=== PATIENT | female | born 1945 | race Caucasian/White ===

== ENCOUNTER → 2017-03-21 | Outpatient (CLI) | payer MEDICARE ==
--- NOTE | 2017-03-21 11:43 | FL ---
EXAMINATION TYPE: FL barium swallow DATE OF EXAM: 03/21/2017 CLINICAL HISTORY: Cough and aspiration per order. Food getting caught in back of throat with some cou ghing per patient. TECHNIQUE: A double contrast esophagram is performed utilizing air and barium. A total of 36 second s of fluoroscopic time was utilized during procedure. COMPARISON: Modified barium swallow report September 02, 2012. FINDINGS: The esophagus shows normal motility and emptying into the stomach. No evidence of hiatal h ernia or stricture noted. In proximal esophagus at lower cervical level there is diverticulum measuri ng roughly 2 cm in vertebral body length and roughly 80% of width of a vertebra. Diverticulum is disc ussed on 2012 study , suspect increased in size. No significant gastroesophageal reflux was seen duri ng real time performance of this study. IMPRESSION: Zenker's diverticulum redemonstrated felt increased in size based on prior report and lik roshan is accounting for patient's symptoms.
== END | disposition home or self-care (01) ==
LOC: RADFLWHC 10:46
PROVIDERS: ATTEND Otolaryngology
DX: K22.5 Diverticulum of esophagus, acquired (principal); R05 Cough
CPT/HCPCS: 74220

== ENCOUNTER → 2017-05-17 | Outpatient (CLI) | payer MEDICARE ==
[2017-05-17 10:49] LABS: EKG EKG PERFORMED
[2017-05-17 12:09] LABS: Basophils % (A) 1 %; CH 32.1; Eosinophils # (A) 0.1 k/uL (0-0.7); Eosinophils % (A) 2 %; HCT 42.8 % (34.0-46.0); HDW 2.36; HGB 14.4 gm/dL (11.4-16.0); Luc # (Auto) 0.17; Luc % (Auto) 3; Lymphocytes # (A) 1.2 k/uL (1.0-4.8); Lymphocytes % (A) 20 %; MCH 31.8 pg (25.0-35.0); MCHC 33.6 g/dL (31.0-37.0); MCV 94.7 fL (80.0-100.0); Monocytes # (A) 0.4 k/uL (0-1.0); Monocytes % (A) 6 %; Neutrophils # (A) 4.1 k/uL (1.3-7.7); Neutrophils % (A) 68 %; RBC 4.52 m/uL (3.80-5.40); RDW 13.9 % (11.5-15.5); WBC (Perox) 6.14
[2017-05-17 12:19] LABS: Partial Thromboplastin Time 22.7 sec (22.0-30.0); Prothrombin Time 10.3 sec (9.0-12.0)
[2017-05-17 12:23] LABS: Anion Gap 11 mmol/L; Blood Urea Nitrogen 16 mg/dL (7-17); Carbon Dioxide 26 mmol/L (22-30); Chloride 106 mmol/L (98-107); Glucose 103 mg/dL (74-99); Non-African American GFR(MDRD) >60 (>60 ml/min/1.73 sqM); Potassium 4.2 mmol/L (3.5-5.1); Sodium 143 mmol/L (137-145)
== END | disposition home or self-care (01) ==
LOC: LABPAT 10:38
PROVIDERS: ATTEND Thoracic Surgery (Cardiothoracic Vascular Surgery)
DX: Z01.810 Encounter for preprocedural cardiovascular examination (principal); K22.5 Diverticulum of esophagus, acquired; I10 Essential (primary) hypertension; Z79.01 Long term (current) use of anticoagulants; Z01.812 Encounter for preprocedural laboratory examination
CPT/HCPCS: 80051; 82565; 82947; 84520; 85025; 85610; 85730; 87086; 93005

== ENCOUNTER 2017-05-20 05:51 | Inpatient (IN) | payer MEDICARE ==
[2017-05-16 16:16] VITALS: BMI 30.9
[~2017-05-20 05:51] MED LIST: DEXAMETHASONE SOD PHOSPHATE 10 MG/ML 1 ML VIAL IV ONE; HYDROmorphone 1 MG/ML 1 ML SYRINGE IVP PRN; LACTATED RINGERS 1,000 ML IV SCH; MIDAZOLAM 2 MG/2 ML VIAL IV PRN; ONDANSETRON 4 MG/2 ML VIAL IVP ONE; SCOPOLAMINE 1.5MG/72HR PATCH TRANSDERM ONE; ceFAZolin 2 GM in SODIUM CHLORIDE 0.9% 100 ML IVPB ONE
[2017-05-20] MEDS ORDERED: LIDOCAINE 1% 20 ML VIAL (10MG/ML) FOR IV START SQ ONE (06:37)
[2017-05-20] MEDS ORDERED: ROCURONIUM BROMIDE 10 MG/ML 10 ML VIAL IV ONE (07:33)
[2017-05-20] MEDS ORDERED: NEOSTIGMINE 1 MG/ML 10 ML VIAL ONE (07:33)
[2017-05-20] MEDS ORDERED: GLYCOPYRROLATE 0.2 MG/ML 2 ML VIAL ONE (07:33)
[2017-05-20] MEDS ORDERED: PROPOFOL 10 MG/ML 20 ML VIAL IV ONE (07:33)
[2017-05-20] MEDS ORDERED: ePHEDrine 50 MG/ML 1 ML AMP ONE (07:33)
[2017-05-20] MEDS ORDERED: LIDOCAINE 1% INJ 10MG/ML (20 ML MDV) ONE (07:33)
[2017-05-20] MEDS ORDERED: SUCCINYLCHOLINE CHLORIDE 100 MG/5 ML SYR IV ONE (07:33)
[2017-05-20] MEDS ORDERED: fentaNYL (PF) 50 MCG/ML 2 ML AMP ONE (07:33)
[2017-05-20] MEDS ORDERED: MIDAZOLAM 2 MG/2 ML VIAL ONE (07:33)
[2017-05-20] MEDS ORDERED: HYDROcodone/APAP 5-325MG 1 EACH TAB PO PRN (09:28)
[2017-05-20] MEDS ORDERED: NALOXONE 0.4 MG/ML 1 ML VIAL IV PRN (09:28)
[2017-05-20] MEDS ORDERED: ONDANSETRON 4 MG/2 ML VIAL IVP PRN (09:28)
[2017-05-20] MEDS ORDERED: ACETAMINOPHEN TAB 325 MG TAB PO PRN (09:28)
[2017-05-20] MEDS ORDERED: ALBUTEROL NEBULIZED 2.5 MG/3 ML INHALATION PRN (09:35)
--- NOTE | 2017-05-20 09:35 | P.OP ---
Date of Procedure: 05/20/17 Preoperative Diagnosis: Symptomatic Zenker's diverticulum Postoperative Diagnosis: Symptomatic Zenker's diverticulum Procedure(s) Performed: Repair of Zenker's diverticulum with myotomy and diverticulopexy Implants: Anesthesia: [id number] Surgeon: Lexx John Construction Person #1: Perry Juan Estimated Blood Loss (ml): 12 Pathology: none sent Disposition: floor Indications for Procedure: Operative Findings: Description of Procedure: Patient was brought to the operating room electively for the repair of his Zenker's diverticulum with severe symptoms. Preoperative barium swallow revealed a large diverticulum. She has been known to have the problem for many many years and now is overtly severely symptomatic she was prepped and draped in usual sterile Betadine fashion after informed consent timeout was performed and a low incision on the anterior border the sternocleidomastoid was carried out through skin and simultaneous tissue electrocautery utilized for hemostasis on the left side anterior to the carotid artery we penetrated with dissection to the level of the vertebral body and dissected free the posterior pharynx in the and identified the posterior esophageal diverticulum and posterior constrictor once we dissected the diverticulum free from constrictor we perform the femoral myotomy for personally 4 cm down to the thoracic inlet myotomy after the myotomy was completed with sharp scissors of the diverticulum is inverted and pexed to the posterior cervical fascia with 2 interrupted sutures of silk 3L stenosis was the diverticulopexy was completed a small Allen drain was placed into the space brought out through the incision and the wound was closed in layers with Vicryl sutures and Steri-Strips all needle sponges counts were correct [facility] operative report on patient Basiliajamshid John dictating first established technical surgical aide was Dr. Perry Ross the procedure completed thank you
[2017-05-20] MEDS: HYDROcodone/APAP 5-325MG 1 EACH TAB PO PRN (11:35)
[2017-05-20] MEDS: CALCIUM CARB-VIT D 500MG-200UN 1 EACH TAB PO SCH (11:41)
[2017-05-20] MEDS: ATORVASTATIN 10 MG TAB PO SCH (11:41)
[2017-05-20] MEDS: amLODIPine 5 MG TAB PO SCH (11:41)
[2017-05-20] MEDS: ASCORBIC ACID 500 MG TAB PO SCH (11:41)
[2017-05-20] MEDS: CHOLECALCIFEROL 1,000 UNIT TAB PO SCH (11:42)
[2017-05-20] MEDS: LOSARTAN 50 MG TAB PO SCH (11:42)
[2017-05-20] MEDS: LEVOTHYROXINE 75 MCG TAB PO SCH (11:42)
[2017-05-20] MEDS: CYANOCOBALAMIN-FA-PYRIDOXINE 1 EACH TAB PO SCH (11:42)
[2017-05-20] MEDS: MULTIVITAMINS, THERA 1 EACH TAB PO SCH (11:43)
[2017-05-20] MEDS: VENLAFAXINE HCL ER 150 MG CAP PO SCH (11:43)
[2017-05-20] MEDS: D5-0.45% NACL WITH KCL 20MEQ/L 1,000 ML IV SCH (12:24)
[2017-05-20] MEDS: HEPARIN SODIUM,PORCINE 5,000 UNIT/ML 1 ML VIAL SQ SCH (15:50)
[2017-05-20] MEDS: FAMOTIDINE 20 MG TAB PO SCH (20:40)
[2017-05-20] MEDS: DOCUSATE 100 MG CAP PO SCH (20:40)
--- NOTE | 2017-05-20 22:50 | P.CONS ---
History of Present Illness - Reason for Consult Consult date: 05/20/17 Medical management Requesting physician: Lexx John - Chief Complaint Surgery - History of Present Illness Consultation: This is a very pleasant 71-year-old patient of Dr. Lowe. Patient having progressive difficulty swallowing with liquids and solids and feeling the food getting stuck in throat. Patient did have a barium swallow that did confirm her Meckel's diverticulum. Patient did see Dr. Sukh Bush and then Dr. Juan. Surgery was done by . Postprocedure patient take some clear liquids. No chest pain or shortness of breath no fever. Has been out of bed. Patient chronic stable medical conditions include asthma, hypertension, hyperlipidemia, hypothyroid, obstructive sleep apnea uses CPAP, and depression. GEN.: Tired EYES: None HEENT: As above NECK: None RESPIRATORY: None CARDIOVASCULAR: None GASTROINTESTINAL: None GENITOURINARY: None MUSCULOSKELETAL: None LYMPHATICS: None HEMATOLOGICAL: None PSYCHIATRY: Depression under control NEUROLOGICAL: None Past medical history: Asthma, hypertension, hyperlipidemia, hypothyroid, obstructive sleep apnea, depression, his ankles Dr. Swanson. Past medical history: Bowel resection, breast surgery, hysterectomy, bowel resection 2. ALLERGIES: None Social history: Does not smoke or drink alcohol. Lives by herself. Family history: Prostate cancer VITAL SIGNS: 97.4, 101, 16, 134/69, 91% room air GENERAL: Average built, laying in bed, BMI 30.9 comfortable. EYES: Pupils equal. Conjunctiva normal. HEENT: External appearance of nose and ears normal, oral cavity grossly normal. NECK: JVD unable to assess, dressing present. HEART: First and second heart sounds are normal; no edema. LUNGS: Respiratory rate normal; clear to auscultation. ABDOMEN: Soft, nontender, liver spleen not palpable, no masses palpable. LYMPHATICS: No lymph nodes palpable in the axilla and neck. PSYCH: Alert and oriented x3; mood and affect normal. NEUROLOGICAL: Cranial nerves grossly intact; no facial asymmetry, power and sensation grossly intact. Investigations Labwork from 05/17/70 showing white count of 6, hemoglobin 14.4, potassium 4.2,. Crit is normal. Assessment: -Surgical repair of Zenker's diverticulum -Intubated asthma controlled -Essential hypertension -Hyperlipidemia -Hypothyroidism -Obstructive sleep apnea uses CPAP and she -Depression not otherwise specified controlled -Obesity BMI 30.9 Plan: Patient currently a liquid diet. Home medications are resumed. Patient is out of bed a few times. Patient is followed by Dr. Lowe up at discharge Thank Past Medical History Past Medical History: Asthma, Hyperlipidemia, Hypertension, Thyroid Disorder Additional Past Medical History / Comment(s): "choking from food getting stuck in a pouch in the esophagus", BRONCHITIS. BOWEL OBSTRUCTION IN THE PAST,use cpap History of Any Multi-Drug Resistant Organisms: None Reported Past Surgical History: Bowel Resection, Breast Surgery, Hysterectomy Additional Past Surgical History / Comment(s): mult BILATERAL BREAST BX-NEGATIVE ,bowel resection x2 Past Anesthesia/Blood Transfusion Reactions: Motion Sickness Additional Past Anesthesia/Blood Transfusion Reaction / Comm: no hx blood transfusion Smoking Status: Never smoker - Past Family History Mother Family Medical History: No Reported History Father Family Medical History: Cancer Additional Family Medical History / Comment(s): prostate at age 82 Medications and Allergies Home Medications Medication Instructions Recorded Confirmed Type Albuterol Sulfate [Proair Hfa] 1 puff INHALATION RT-DAILY PRN 02/15/15 05/20/17 History Calcium Carb/Vitamin D3/Vit K1 1 tab PO DAILY 02/15/15 05/20/17 History [Viactiv Soft Chew Tablet] Cholecalciferol [Vitamin D3] 2,000 unit PO DAILY 02/15/15 05/20/17 History Levothyroxine Sodium [Synthroid] 75 mcg PO DAILY 02/15/15 05/20/17 History Losartan Potassium [Losartan 100 mg PO QAM 02/15/15 05/20/17 History Potassium] Multivitamins, Thera [Multivitamin] 1 tab PO DAILY 02/15/15 05/20/17 History Simvastatin [Simvastatin] 20 mg PO DAILY 02/15/15 05/20/17 History Venlafaxine HCl [Venlafaxine HCl 150 mg PO DAILY 02/15/15 05/20/17 History ER] Vitamin B Complex 1 cap PO DAILY 02/15/15 05/20/17 History Ascorbic Acid [Vitamin C] 500 mg PO DAILY 05/16/17 05/20/17 History Ibuprofen 600 mg PO BID 05/16/17 05/20/17 History amLODIPine BESYLATE [Norvasc] 5 mg PO DAILY 05/16/17 05/20/17 History Allergies Allergy/AdvReac Type Severity Reaction Status Date / Time No Known Allergies Allergy Verified 05/16/17 14:22 Physical Exam Vitals: Delete
[2017-05-21] MEDS: HEPARIN SODIUM,PORCINE 5,000 UNIT/ML 1 ML VIAL SQ SCH ×2 (00:14→07:22)
[2017-05-21] MEDS: D5-0.45% NACL WITH KCL 20MEQ/L 1,000 ML IV SCH (01:00)
[2017-05-21] MEDS: LEVOTHYROXINE 75 MCG TAB PO SCH (05:23)
[2017-05-21] MEDS: LOSARTAN 50 MG TAB PO SCH (07:21)
[2017-05-21] MEDS: FAMOTIDINE 20 MG TAB PO SCH (07:21)
[2017-05-21] MEDS: DOCUSATE 100 MG CAP PO SCH (07:21)
[2017-05-21] MEDS: MULTIVITAMINS, THERA 1 EACH TAB PO SCH (07:22)
[2017-05-21] MEDS: CALCIUM CARB-VIT D 500MG-200UN 1 EACH TAB PO SCH (07:22)
[2017-05-21] MEDS: CHOLECALCIFEROL 1,000 UNIT TAB PO SCH (07:22)
[2017-05-21] MEDS: amLODIPine 5 MG TAB PO SCH (07:22)
[2017-05-21] MEDS: CYANOCOBALAMIN-FA-PYRIDOXINE 1 EACH TAB PO SCH (07:22)
[2017-05-21] MEDS: VENLAFAXINE HCL ER 150 MG CAP PO SCH (07:22)
[2017-05-21] MEDS: ASCORBIC ACID 500 MG TAB PO SCH (07:22)
[2017-05-21] MEDS: ATORVASTATIN 10 MG TAB PO SCH (07:23)
[2017-05-21] MEDS: HYDROcodone/APAP 5-325MG 1 EACH TAB PO PRN (07:32)
[2017-05-21 07:53] LABS: Basophils % (A) 0 %; CH 31.7; CHCM 33.5; Eosinophils # (A) 0.1 k/uL (0-0.7); Eosinophils % (A) 1 %; HCT 40.1 % (34.0-46.0); HDW 2.33; HGB 13.3 gm/dL (11.4-16.0); Luc # (Auto) 0.26; Luc % (Auto) 2; Lymphocytes # (A) 1.7 k/uL (1.0-4.8); Lymphocytes % (A) 16 %; MCH 31.6 pg (25.0-35.0); MCHC 33.3 g/dL (31.0-37.0); MCV 95.1 fL (80.0-100.0); Mean Platelet Volume 6.4; Monocytes # (A) 0.6 k/uL (0-1.0); Monocytes % (A) 5 %; Neutrophils # (A) 8.1 k/uL (1.3-7.7); Neutrophils % (A) 75 %; RBC 4.22 m/uL (3.80-5.40); RDW 13.2 % (11.5-15.5); WBC 10.8 k/uL (3.8-10.6); WBC (Perox) 12.04
[2017-05-21 08:24] LABS: ALT 34 U/L (9-52); AST 28 U/L (14-36); Alkaline Phosphatase 72 U/L (38-126); Anion Gap 8 mmol/L; Blood Urea Nitrogen 11 mg/dL (7-17); Calcium 8.9 mg/dL (8.4-10.2); Carbon Dioxide 24 mmol/L (22-30); Chloride 109 mmol/L (98-107); Glucose 110 mg/dL (74-99); Non-African American GFR(MDRD) >60 (>60 ml/min/1.73 sqM); Potassium 4.2 mmol/L (3.5-5.1); Sodium 141 mmol/L (137-145); Total Bilirubin 0.3 mg/dL (0.2-1.3); Total Protein 6.1 g/dL (6.3-8.2)
[2017-05-21 08:29] VITALS: BP 207/84; PULSE 81; RESP 18; TEMP 97.9
[2017-05-21] MEDS ORDERED: cloNIDine HCL 0.1 MG TAB PO STA (08:49)
--- NOTE | 2017-05-21 14:21 | P.DS ---
Providers Date of admission: 05/20/17 10:19 Attending physician: Lexx John Consults: 05/20/17 09:28 Consult Physician Routine Consulting Provider: Perry Juan Consult Reason/Comments: vascular managment Do you want consulting provider notified?: Already Contacted 05/20/17 09:34 Consult Physician Routine Consulting Provider: Pradeep Hannah Consult Reason/Comments: medical managment Do you want consulting provider notified?: Yes Primary care physician: Osbaldo Vaughn [facility] Course: FINAL DIAGNOSIS: 1. Symptomatic Zenker's diverticulum 2. Hypertension 3. Hyperlipidemia 4. Asthma 5. Obstructive sleep apnea with CPAP use 6. Hypothyroidism 7. Depression PRINCIPAL PROCEDURE: 1. Repair of Zenker's diverticulum with myotomy and diverticulopexy HISTORY OF PRESENT ILLNESS: This 71-year-old lady was followed in the outpatient setting by Dr. Vaughn. Apparently she has been having progressive difficulty swallowing for the past several years. She had a barium swallow which confirmed a diagnosis of Meckel's diverticulum. She did see Dr. Leonard and Dr. Bush, who were unable to offer her successful treatment recommendations and subsequently she was referred to Dr. Juan for surgical evaluation. She was recommended to have repair of Zenker's diverticulum, all risks benefits were explained in detail, he was explained to the patient that Dr. John would be performing the procedure, and the patient agreed to proceed with surgery. HOSPITAL COURSE: The patient was brought in to the hospital on 05/20/2017, she was taken to the preoperative area, prepared in the usual fashion, and taken to the operating room where Dr. John performed a repair of Zenker's diverticulum with myotomy and diverticulopexy. Upon completion of surgery the patient was extubated, taken to the recovery room where she was monitored, and once stable was transferred to the medical surgical unit for further monitoring. She remained stable overnight and was able to tolerate a clear liquid diet, she progressed to full liquid diet the following morning, and her [place] drain was discontinued. She had no hoarseness and no crepitus around the surgical site, and she was able to swallow her pills whole without them getting stuck. She did have an episode of hypertension the morning of postop day 1 which which resolved with 1 dose of oral Catapres. She was ready to be discharged home with plans for follow-up with Dr. Juan in one week. She was given verbal and written instructions regarding activity limitations, signs and symptoms requiring physician notification, medications, COMPLICATIONS: There is no postoperative complications. DISCHARGE INSTRUCTIONS: 1. No driving until physician gives their ok. 2. No lifting, pushing, or pulling more than 5 pounds seen by the physician. No straining of any kind. 3. Continue pain control per as needed orders. 4. Continue with incentive spirometry until otherwise directed by the physician. 5. May shower daily using liquid antibacterial soap 6. Routine incision care. No powders, lotions, ointments on incisions. 7. Please call surgeon/[employer] for temp greater than 101 F, purulent drainage from incisions, or crepitus around surgical site. 8. Continue with soft diet until seen by physician. Plan - Discharge Summary New Discharge Prescriptions: New Acetaminophen Tab [Tylenol] 650 mg PO Q6HR PRN tab PRN Reason: Mild Pain Or Fever >= 100.5 Docusate [Colace] 100 mg PO BID cap Continue Cholecalciferol [Vitamin D3] 2,000 unit PO DAILY Albuterol Sulfate [Proair Hfa] 1 puff INHALATION RT-DAILY PRN PRN Reason: Shortness Of Breath Or Wheezing Simvastatin 20 mg PO DAILY Losartan Potassium 100 mg PO QAM Levothyroxine Sodium [Synthroid] 75 mcg PO DAILY Venlafaxine HCl [Venlafaxine HCl ER] 150 mg PO DAILY Vitamin B Complex 1 cap PO DAILY Calcium Carb/Vitamin D3/Vit K1 [Viactiv Soft Chew] 1 tab PO DAILY Multivitamins, Thera [Multivitamin (formulary)] 1 tab PO DAILY Ascorbic Acid [Vitamin C] 500 mg PO DAILY amLODIPine BESYLATE [Norvasc] 5 mg PO DAILY Discontinued Ibuprofen 600 mg PO BID Discharge Medication List Albuterol Sulfate [Proair Hfa] 1 puff INHALATION RT-DAILY PRN 02/15/15 [History] Calcium Carb/Vitamin D3/Vit K1 [Viactiv Soft Chew] 1 tab PO DAILY 02/15/15 [ History] Cholecalciferol [Vitamin D3] 2,000 unit PO DAILY 02/15/15 [History] Levothyroxine Sodium [Synthroid] 75 mcg PO DAILY 02/15/15 [History] Losartan Potassium 100 mg PO QAM 02/15/15 [History] Multivitamins, Thera [Multivitamin (formulary)] 1 tab PO DAILY 02/15/15 [History ] Simvastatin 20 mg PO DAILY 02/15/15 [History] Venlafaxine HCl [Venlafaxine HCl ER] 150 mg PO DAILY 02/15/15 [History] Vitamin B Complex 1 cap PO DAILY 02/15/15 [History] Ascorbic Acid [Vitamin C] 500 mg PO DAILY 05/16/17 [History] amLODIPine BESYLATE [Norvasc] 5 mg PO DAILY 05/16/17 [History] Acetaminophen Tab [Tylenol] 650 mg PO Q6HR PRN tab 05/21/17 [Rx] Docusate [Colace] 100 mg PO BID cap 05/21/17 [Rx]
== END 2017-05-21 11:50 | disposition home or self-care (01) | DRG 328 ==
LOC: OR 05:51 → EDSTATUS 07:30 → 5MS5E 08:44 → OR 10:19
PROVIDERS: ADMIT Thoracic Surgery (Cardiothoracic Vascular Surgery); ATTEND Thoracic Surgery (Cardiothoracic Vascular Surgery)
PROC: 0DN50ZZ Release Esophagus, Open Approach (ICD-10-PCS; principal; 2017-05-20 07:30)
DX: K22.5 Diverticulum of esophagus, acquired (principal); E66.9 Obesity, unspecified; I10 Essential (primary) hypertension; R13.10 Dysphagia, unspecified; F32.9 Major depressive disorder, single episode, unspecified; E03.9 Hypothyroidism, unspecified; E78.5 Hyperlipidemia, unspecified; G47.33 Obstructive sleep apnea (adult) (pediatric); J45.909 Unspecified asthma, uncomplicated; Q43.0 Meckel's diverticulum (displaced) (hypertrophic); Z79.899 Other long term (current) drug therapy
CPT/HCPCS: 80053; 85025; 86850; 86900; 86901

== ENCOUNTER → 2018-09-17 | Outpatient (CLI) | payer MEDICARE ==
--- NOTE | 2018-09-18 13:53 | MM ---
Reason for exam: screening (asymptomatic). Last mammogram was performed 1 year ago. History: Patient is postmenopausal and is nulliparous. Benign US left CoreBiopsy of the left breast, January 16, 2006. 4 cyst aspirations of the left breast. 4 cyst aspirations of the right breast. 2 excisional biopsies of the left breast. 2 excisional biopsies of the right breast. Took estrogen for 13 years beginning at age 46. Physical Findings: A clinical breast exam by your physician is recommended on an annual basis and results should be correlated with mammographic findings. MG 3D Screening Mammo W/Cad Bilateral CC and MLO view(s) were taken. Prior study comparison: September 18, 2017, left breast MG 3d work up w/cad LT. September 16, 2017, bilateral MG 3d screening mammo w/cad. The breast tissue is heterogeneously dense. This may lower the sensitivity of mammography. Benign appearing bilateral calcifications. No suspicious abnormality. Left biopsy marker noted. No significant changes when compared with prior studies. ASSESSMENT: Benign, BI-RAD 2 RECOMMENDATION: Routine screening mammogram of both breasts in 1 year.
== END | disposition home or self-care (01) ==
LOC: RADMAMWWP 10:08
PROVIDERS: ATTEND Internal Medicine
DX: Z12.31 Encounter for screening mammogram for malignant neoplasm of breast (principal)
CPT/HCPCS: 77063; 77067

== ENCOUNTER → 2019-05-20 | Outpatient (CLI) | payer MEDICARE, OTHER ==
[2019-05-20 10:09] LABS: African American GFR (CKD) >90 (>60 ml/min/1.73 sqM); Blood Urea Nitrogen 21 mg/dL (7-17)
--- NOTE | 2019-05-20 16:00 | NM ---
EXAMINATION TYPE: NM bone/joint limited DATE OF EXAM: 05/20/2019 COMPARISON: NONE HISTORY: Pleuritic the medial TECHNIQUE: After the intravenous administration of 24.0 mCi Tc 99m MDP. Images acquired 3.75 hours post injection. Multiple views of the bilateral ribs are submitted. FINDINGS: There is mottled uptake within the anterolateral ribs particularly on the right at ribs 7 t hrough 10 and on the left of rib 9 through 11 on the lateral views of the left ribs and oblique views of the right ribs. Overall symmetric uptake is seen of the midthoracic spine, likely degenerative. U ptake is also noted at the sternoclavicular joints bilaterally. IMPRESSION: Patchy heterogenous uptake within multiple bilateral ribs for which correlation with rib series radiographs is recommended.
--- NOTE | 2019-05-20 18:24 | CT ---
EXAMINATION TYPE: CT chest w con DATE OF EXAM: 05/20/2019 COMPARISON: None HISTORY: Rib pain, pleurodynia CT DLP: 558 mGycm, Automated exposure control for dose reduction was used. CONTRAST: Performed injected with 100 ml mL of Isovue 300. TECHNIQUE: Axial images were obtained at 5 mm thick sections. Reconstructed images are reviewed on [employer] computer in the coronal plane. FINDINGS: Portion of the thyroid visualized is normal. No suspicious lung nodules or focal infiltrates are present. No suspicious pleural effusions are evid ent. No pneumothorax is evident. No enlarged mediastinal or hilar adenopathy is evident. The ascending aorta diameter at the level o f the main pulmonary artery is 3.7 cm. The main pulmonary artery diameter at the bifurcation is 2.6 cm. Osseous structures appear intact. Limited CT sections are obtained through the upper abdomen. Small hiatal hernia is present. IMPRESSIONS: 1. No acute abnormality to account for patient's symptoms.
== END | disposition home or self-care (01) ==
LOC: RADNMMAIN 09:26
PROVIDERS: ATTEND Internal Medicine
DX: R07.81 Pleurodynia (principal)
CPT/HCPCS: 82565; 84520; 71260; 36415; 78300; A9503; Q9967

== ENCOUNTER → 2020-04-20 | Outpatient (CLI) | payer MEDICARE ==
--- NOTE | 2020-04-21 10:39 | MM ---
Reason for exam: screening (asymptomatic). Last mammogram was performed 1 year and 7 months ago. History: Patient is postmenopausal and is nulliparous. Benign US left CoreBiopsy of the left breast, January 16, 2006. 4 cyst aspirations of the left breast. 4 cyst aspirations of the right breast. 2 excisional biopsies of the left breast. 2 excisional biopsies of the right breast. Took estrogen for 13 years beginning at age 46. Physical Findings: A clinical breast exam by your physician is recommended on an annual basis and results should be correlated with mammographic findings. MG 3D Screening Mammo W/Cad Bilateral CC and MLO view(s) were taken. Prior study comparison: September 17, 2018, bilateral MG 3d screening mammo w/cad. September 18, 2017, left breast MG 3d work up w/cad LT. The breast tissue is heterogeneously dense. This may lower the sensitivity of mammography. Focal asymmetry upper central left breast posterior third position. This finding is changed when compared with previous exams. ASSESSMENT: Incomplete: need additional imaging evaluation, BI-RAD 0 RECOMMENDATION: Special view mammogram of the left breast. If lesion persists on supplemental views, image directed ultrasound is recommended. [facility] will attempt to contact patient to return for supplemental views and ultrasound if indicated.
== END | disposition home or self-care (01) ==
LOC: RADMAMWWP 12:38
PROVIDERS: ATTEND Internal Medicine
DX: Z12.31 Encounter for screening mammogram for malignant neoplasm of breast (principal)
CPT/HCPCS: 77063; 77067

== ENCOUNTER → 2020-04-27 | Outpatient (CLI) | payer MEDICARE ==
--- NOTE | 2020-04-27 10:53 | MM ---
Reason for exam: additional evaluation requested from abnormal screening. Last mammogram was performed less than 1 month ago. History: Patient is postmenopausal and is nulliparous. Benign US left CoreBiopsy of the left breast, January 16, 2006. 4 cyst aspirations of the left breast. 4 cyst aspirations of the right breast. 2 excisional biopsies of the left breast. 2 excisional biopsies of the right breast. Took estrogen for 13 years beginning at age 46. Physical Findings: Nurse did not find any significant physical abnormalities on exam. MG 3D Work Up W/Cad LT Spot compression CC, spot compression MLO, and LM view(s) were taken of the left breast. Prior study comparison: April 20, 2020, bilateral MG 3d screening mammo w/cad. September 17, 2018, bilateral MG 3d screening mammo w/cad. The breast tissue is heterogeneously dense. This may lower the sensitivity of mammography. There is no discrete abnormality. No significant new findings when compared with previous films. These results were verbally communicated with the patient and result sheet given to the patient on 04/27/20. ASSESSMENT: Negative, BI-RAD 1 RECOMMENDATION: Return to routine screening mammogram schedule for both breasts.
== END | disposition home or self-care (01) ==
LOC: RADMAMWWP 09:42
PROVIDERS: ATTEND Internal Medicine
DX: R92.8 Other abnormal and inconclusive findings on diagnostic imaging of breast (principal)
CPT/HCPCS: 77065; G0279; 77061

== ENCOUNTER → 2020-06-29 | Outpatient (CLI) | payer MEDICARE ==
[2020-06-29 10:39] VITALS: BP 141/79; PULSE 71; RESP 20; TEMP 98.2
--- NOTE | 2020-06-29 11:08 | P.CONS ---
History of Present Illness - Reason for Consult Consult date: 06/29/20 - Chief Complaint Left middle back pain - History of Present Illness This is a 75-year-old lady with history of pain on the left side of her thoracic spine which started about 2 years ago with no precipitating events. The pain gets worse with standing and bending over and lying down may help her pain as she states. The perspiration does not increase her pain. The pain occasionally radiates to the front however the patient denies any paresthesia in the area and she denies any history of herpes zoster in the area. The patient takes 600 mg Y improvement in the morning for this pain she was referred to us by Dr. valle for a trial of diagnostic thoracic medial branch block. She did have an MRI on the thoracic spine which showed syrinx and multiple levels of disc bulging but no canal stenosis or neural foraminal stenosis. The patient has peripheral neuropathy of unknown cause with numbness in the right foot. She denies any bowel or bladder dysfunction or any weakness in the upper or lower extremities. She does complain of imbalance which might need to be worked up further with a neurologist. Review of Systems Constitutional: Denies chills, Denies fever Ears, nose, mouth and throat: Denies headache, Denies sore throat Cardiovascular: Denies chest pain, Denies shortness of breath Respiratory: Denies cough Neurological: Reports as per HPI Past Medical History Past Medical History: Asthma, Hyperlipidemia, Hypertension, Osteoarthritis (OA), Sleep Apnea/CPAP/BIPAP, Thyroid Disorder Additional Past Medical History / Comment(s): cpap use, states has "cyst on back" chronic back pain History of Any Multi-Drug Resistant Organisms: None Reported Past Surgical History: Bowel Resection, Breast Surgery, Hysterectomy Additional Past Surgical History / Comment(s): mult BILATERAL BREAST bx and lumpectomy benign , bowel resection x2, REPAIR OF A POUCH ON THE ESOPHAGUS - RIGHT SIDE OF NECK Past Anesthesia/Blood Transfusion Reactions: Motion Sickness Additional Past Anesthesia/Blood Transfusion Reaction / Comm: no hx blood transfusion- Past Psychological History: Depression Smoking Status: Never smoker Past Alcohol Use History: None Reported Past Drug Use History: None Reported - Past Family History Mother Family Medical History: No Reported History Father Family Medical History: Cancer Additional Family Medical History / Comment(s): prostate at age 82 Medications and Allergies Home Medications Medication Instructions Recorded Confirmed Type Albuterol Sulfate [Proair Hfa] 1 puff INHALATION BID PRN 02/15/15 06/29/20 History Calcium Carb/Vitamin D3/Vit K1 1 tab PO DAILY 02/15/15 06/29/20 History [Viactiv 650 mg-12.5 Mcg Chew] Cholecalciferol [Vitamin D3 (25 2,000 unit PO DAILY 02/15/15 06/29/20 History Mcg = 1000 Iu)] Levothyroxine Sodium [Synthroid] 75 mcg PO DAILY 02/15/15 06/29/20 History Losartan Potassium 100 mg PO QAM 02/15/15 06/29/20 History Multivitamins, Thera [Multivitamin 1 tab PO DAILY 02/15/15 06/29/20 History (formulary)] Simvastatin 20 mg PO DAILY 02/15/15 06/29/20 History Venlafaxine HCl [Venlafaxine HCl 150 mg PO DAILY 02/15/15 06/29/20 History ER] Ascorbic Acid [Vitamin C] 1,000 mg PO DAILY 05/16/17 06/29/20 History amLODIPine BESYLATE [Norvasc] 5 mg PO BID 05/16/17 06/29/20 History Fiber Tablet 1,000 mg PO HS 07/30/17 06/29/20 History Hydrochlorothiazide 12.5 mg PO DAILY PRN 07/30/17 06/29/20 History [hydroCHLOROthiazide] Calcium Carb/Vitamin D3/Vit K1 2 each PO DAILY 06/27/20 06/29/20 History [Viactiv Soft Chew Tablet] Fexofenadine HCl [Caro Allergy] 180 mg PO DAILY 06/27/20 06/29/20 History Gabapentin [Neurontin] 100 mg PO TID 06/27/20 06/29/20 History Ibuprofen [Motrin] 600 mg PO Q8HR PRN 06/27/20 06/29/20 History Allergies Allergy/AdvReac Type Severity Reaction Status Date / Time No Known Allergies Allergy Verified 06/29/20 10:38 Physical Exam Vitals: Vital Signs Temp Pulse Resp BP Pulse Ox 06/29/20 10:33 98.2 F 71 20 141/79 96 - Constitutional General appearance: obese - Neurologic Neurologic: CNII-XII intact - Musculoskeletal Positive tenderness on the left side of her mid and lower thoracic spine on the left side of the spine. Mild skin erythema in the area immediately due to rubbing of this area by the patient. The patient's pain does not increase by deep respiration. - Psychiatric Psychiatric: A&O x's 3, appropriate affect, intact judgment & insight Results Results: The thoracic spine MRI showed a 5 x 6 cm syrinx and multiple levels of disc bulging with no neural foraminal or canal stenosis. Assessment and Plan Plan: This is a 75-year-old lady with history of axial mid and lower thoracic pain on the left side of her spine with occasional radiation to the anterior part of her chest on the left side. The patient denies any history of herpes zoster in the area or any history of paresthesia in this area. She does complain of imbalance in her gait which I think might be due to her syrinx in the thoracic the patient may need to further workup her imbalance by a neurologist. She has thoracic disc bulging with no compression of nerve roots or the spinal cord. Postoperative she has this pain due to myofascial involvement and facet arthropathy and the thoracic spondylosis. We will do a diagnostic thoracic medial branch block on the left side of her spine the levels will be decided at the time for the procedure but most likely they will and for the mid to lower thoracic spine area and possibly one level in the upper lumbar area. The patient does not get any improvement from the medial branch block and then I think we can plan on doing thoracic epidural steroid injection in the future. The procedures were explained to the patient and her questions were answered. I thank you for the referral
== END | disposition home or self-care (01) ==
LOC: PNWHC3 10:20
PROVIDERS: ATTEND Anesthesiology
DX: G89.29 Other chronic pain (principal); M47.816 Spondylosis without myelopathy or radiculopathy, lumbar region; G62.9 Polyneuropathy, unspecified; R26.89 Other abnormalities of gait and mobility; Z79.899 Other long term (current) drug therapy
CPT/HCPCS: 99211

== ENCOUNTER 2020-07-19 07:53 | Day surgery (SDC) | payer MEDICARE ==
[2020-07-18 10:08] VITALS: BMI 33.5
[~2020-07-19 07:53] MED LIST changes: -DEXAMETHASONE SOD PHOSPHATE 10 MG/ML 1 ML VIAL IV ONE; -HYDROmorphone 1 MG/ML 1 ML SYRINGE IVP PRN; -MIDAZOLAM 2 MG/2 ML VIAL IV PRN; -ONDANSETRON 4 MG/2 ML VIAL IVP ONE; -SCOPOLAMINE 1.5MG/72HR PATCH TRANSDERM ONE; -ceFAZolin 2 GM in SODIUM CHLORIDE 0.9% 100 ML IVPB ONE
[2020-07-19 08:33] VITALS: RESP 16; TEMP 98
[2020-07-19] MEDS ORDERED: LIDOCAINE 1% (10MG/ML) FOR IV START INTRADERMA ONE (08:37)
[2020-07-19] MEDS ORDERED: IV FLUID CONTINUATION 1,000 ML IV ONE (09:36)
--- NOTE | 2020-07-19 09:37 | P.PN ---
Subjective Progress Note Date: 07/19/20 This is 75 years old female, who scheduled to have left side medial branch blocks thoracic area, left T7 ,T8 ,T9 after patient was brought to the procedure room , while I was examining the patient he for the procedure she reported that her pain mainly in the low back area on the left side, and she had no pain in the mid back area , and all her pain is in the left side hip area, and left side low back area, she denies any motor or sensory deficit Objective - Vital Signs Vital signs: Vital Signs Temp 98.0 F 07/19/20 08:31 Pulse 78 07/19/20 08:31 Resp 16 07/19/20 08:31 BP 186/79 07/19/20 08:31 Pulse Ox 98 07/19/20 08:31 Intake & Output 07/18/20 07/19/20 07/19/20 18:59 06:59 18:59 Intake Total 50 Balance 50 Weight 88.451 kg 92.8 kg Intake: IV 50 - Exam Physical Examinations : -Constitutiona : Cooperative , not in acute distress . -HEENT : nech : supple , no Lymphadenopathy , normal thyroid size . : eyes : no ptosis , no icterus, no photophobia . . - neurologic : Cranial nerve II to XII intact , no focal neurological deffecit . -psychatric : alert , oriented X 3 , appropriate affect , intact judgment and insight . -Lymphatic : no Lymphadenopathy . - musculoskeltal : Lumber spine moter stegnth lower extremities ,thigh and legs 5/5 Right side , 5/5 Left side deep tendon reflexes : normal Knee Jerk , normal ankle Jerk lumber facet Loading Test = positive on the left side Range of motion of the lumbar spine Flexion 60 degrees, extension 30 degrees strait leg raising test = negative bilaterally Fabere test= positive Right , and positive LT . Sever tenderness over the Left iliac crest at the location of the left cluneal nerve sever tenderness over the left trochanteric bursa. 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 She could benefit from left cluneal nerve block, and left trochanteric bursa steroid injection under fluoroscopy guidance Patient is scheduled to have left-sided medial branch blocks thoracic area, patient reported that she had no pain in the thoracic area The procedure (thoracic medial branch block ) was canceled for today and she will beast rescheduled to have, left trochanteric bursa Left cluneal nerve block Time with Patient: Less than 30
[2020-07-19 09:41] VITALS: BP 138/68; PULSE 67
== END 2020-07-19 09:56 | disposition home or self-care (01) ==
LOC: ORPAIN 07:53
PROVIDERS: ATTEND Specialist
DX: M70.62 Trochanteric bursitis, left hip (principal); Z53.8 Procedure and treatment not carried out for other reasons; G58.8 Other specified mononeuropathies

== ENCOUNTER 2020-07-28 07:41 | Day surgery (SDC) | payer MEDICARE ==
[2020-07-27 08:26] VITALS: BMI 35.0
[2020-07-28 08:03] VITALS: TEMP 97.9
[2020-07-28] MEDS ORDERED: ROPIVACAINE 5MG/ML 20ML VIAL ONE (08:18)
[2020-07-28] MEDS ORDERED: MIDAZOLAM 2 MG/2 ML VIAL ONE (08:18)
[2020-07-28] MEDS ORDERED: fentaNYL (PF) 50 MCG/ML 2 ML AMP ONE (08:18)
[2020-07-28] MEDS ORDERED: TRIAMCINOLONE ACETONIDE 40 MG/ML 1 ML VIAL ONE (08:18)
[2020-07-28] MEDS ORDERED: IV FLUID CONTINUATION 1,000 ML IV ONE (08:37)
--- NOTE | 2020-07-28 08:38 | P.PCN ---
Date of Procedure: 07/28/20 Surgeon: Gianni Mack Pathology: none sent Condition: stable Disposition: PACU Description of Procedure: pre- and postoperative diagnosis :left cluneal nerve entrapment procedure: Left cluneal nerve block under fluoroscopic guidance physician:Gianni Mack MD Anesthesia: Local with IV moderate sedation with Versed and fentanyl Description of procedure: The patient was seen in the preop holding area consent was obtained then she was brought into the procedure room and placed in prone position. ASA monitors were applied. Skin was prepped with ChloraPrep and draped in a sterile manner. Lidocaine 1% was used to numb the skin up at the target points. The target points were chosen as follows: The superior cluneal nerve branches to medial, intermediate, and lateral branches at the medial aspect of the iliac crest slightly lateral to the posterior superior iliac spine. The target points were chosen a few centimeters away from the posterior superior iliac spine in 3 spots at the edge of the iliac crest. I used 22-gauge 3-1/2 inch Quincke spinal needle for this procedure,.after contacting boneI injected 3 mils of a mixture of 40 mg of Kenalog +9 MLS of ropivacaine 0.5% in each spot. patient tolerated procedure well. The patient did not have any pain in the left lateral hip area and that's why her greater trochanter bursa steroid injection was canceled today.
[2020-07-28 08:43] VITALS: RESP 16
[2020-07-28 09:07] VITALS: BP 167/96; PULSE 78
--- NOTE | 2020-07-28 13:09 | FL ---
Fluoroscopy INDICATION: Pain FINDINGS: Fluoroscopy time: 4 seconds. Images obtained: 1. IMPRESSIONS: 1. Documentation of fluoroscopy.
== END 2020-07-28 09:21 | disposition home or self-care (01) ==
LOC: ORPAIN 07:41
PROVIDERS: ATTEND Anesthesiology
DX: G58.8 Other specified mononeuropathies (principal)
CPT/HCPCS: 64450; J2250; J3301; J3010; J2795

== ENCOUNTER → 2020-08-24 | Outpatient (CLI) | payer MEDICARE ==
[2020-08-24 09:24] VITALS: BP 151/84; PULSE 77; RESP 16; TEMP 98.1
--- NOTE | 2020-08-24 10:00 | P.PN ---
Subjective Progress Note Date: 08/24/20 This is a follow-up visit for this 75 years old female, with a chronic history of severe low back pain she is diagnosed with left cluneal neuralgia, we did left cluneal nerve block x1 , and she is here for follow-up visit she reported that she had good pain relief for 1 week after the block, he continued to have severe low back pain mainly on the left side low back area, she denies any motor or sensory deficit, she denies any fever or night sweats and she reported that pain is constant and increases with any activity interfere with the quality of life Objective - Vital Signs Vital signs: Vital Signs Temp 98.1 F 08/24/20 09:16 Pulse 77 08/24/20 09:16 Resp 16 08/24/20 09:16 BP 151/84 08/24/20 09:16 Pulse Ox 97 08/24/20 09:16 - Exam -Constitutiona : Cooperative , not in acute distress . -HEENT : nech : supple , no Lymphadenopathy , normal thyroid size . : eyes : no ptosis , no icterus, no photophobia . . - neurologic : Cranial nerve II to XII intact , no focal neurological deffecit . -psychatric : alert , oriented X 3 , appropriate affect , intact judgment and insight . -Lymphatic : no Lymphadenopathy . - musculoskeltal : Lumber spine moter stegnth lower extremities ,thigh and legs 5/5 Right side , 5/5 Left side deep tendon reflexes : normal Knee Jerk , normal ankle Jerk lumber facet Loading Test = positive on the left side Range of motion of the lumbar spine Flexion 60 degrees, extension 30 degrees strait leg raising test = negative bilaterally Fabere test= negative bilateral. Sever tenderness over the Left iliac crest at the location of the left cluneal nerve sever tenderness over the left trochanteric bursa. 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 She could benefit from left cluneal nerve block, and left trochanteric bursa steroid injection under fluoroscopy guidance Time with Patient: Less than 30
== END | disposition home or self-care (01) ==
LOC: PNWHC3 08:52
PROVIDERS: ATTEND Specialist
DX: G58.8 Other specified mononeuropathies (principal); M70.62 Trochanteric bursitis, left hip; M54.5 Low back pain
CPT/HCPCS: 99211

== ENCOUNTER 2020-09-06 14:01 | Day surgery (SDC) | payer MEDICARE ==
[2020-09-02 09:46] VITALS: BMI 35.2
[2020-09-06 14:19] VITALS: RESP 16; TEMP 97.1
[2020-09-06] MEDS ORDERED: LIDOCAINE 1% (10MG/ML) FOR IV START INTRADERMA ONE (14:26)
[2020-09-06] MEDS ORDERED: MIDAZOLAM 2 MG/2 ML VIAL ONE (15:19)
[2020-09-06] MEDS ORDERED: fentaNYL (PF) 50 MCG/ML 2 ML AMP ONE (15:19)
[2020-09-06] MEDS ORDERED: methylPREDNISolone ACETATE 40 MG/ML 1 ML VIAL ONE (15:19)
[2020-09-06] MEDS ORDERED: ROPIVACAINE 5MG/ML 20ML VIAL ONE (15:19)
[2020-09-06] MEDS ORDERED: IV FLUID CONTINUATION 1,000 ML IV ONE (15:38)
--- NOTE | 2020-09-06 15:40 | P.PCN ---
Date of Procedure: 09/06/20 Procedure(s) Performed: Procedure= left Trechonteric bursa steroid injection under fluoroscopy guidance. Left cluneal nerve block under fluoroscopy guidance (fluoroscopy image stored on file in the radiology Department ). Preoperative diagnosis= 1-left trochanteric bursitis. 2-left cluneal nerve neuralgia. Postoperative diagnosis=Same as preop Diagnosis . Complication = none Condition= stable Anesthesia= moderate sedation with intravenous Versed 1 mg , and fentanyl 50 micrograms . Indication for the procedure= patient complaining of low back pain , examination was positive for severe tenderness over the left trochanteric bursa and over the cluneal nerve patient and the pain was not responsive to conservative treatment Description of the procedure= procedure risk and benefits discussed with the patient, including but not limited, risk of infection and bleeding, and ALLERGIC reaction to the medication and not complete pain relief and patient agreed with the preceding patient taken to the operating room, placed in prone position or standard monitors applied to the patient then after induction of anesthesia back prepped with chlorhexidine 3 times , Then under strict sterile technique, first I did the the left cluneal nerve block by placing a 22-gauge intelligence senior sergeant needle at the location of the left cluneal nerve at the top of the iliac crest, needle placement confirmed under fluoroscopy then after negative aspiration, ropivacaine 0.5% 4 mL and 30 mg of Depo-Medrol injected after negative aspiration and there was no paresthesia during the injection. After that the left trochanteric bursa injection done in a sterile technique, a fter the left hip area prepped with Betadine 3, local infiltration of the skin and subcu interstitial with lidocaine 1% same then 22-gauge Quincke Needle advanced slowly under fluoroscopy and placed in the left trochanteric bursa area, needle placement confirmed with the fluoroscopy then after negative aspiration ropivacaine 0.5% 5 mL mixed with 30 mg of Depo-Medrol injected after negative aspiration under was no paresthesia during the injection patient tolerated the procedure well without any condition and she will follow up in the pain clinic in a few weeks
[2020-09-06 15:59] VITALS: BP 159/83; PULSE 85
--- NOTE | 2020-09-06 17:56 | FL ---
EXAMINATION TYPE: FL guided pain mgmt statistic DATE OF EXAM: 09/06/2020 FLUOROSCOPY Fluoroscopy time of 3 seconds was used during nerve block and bursal steroid injection for spondylosi s. 2 image/s document/s the procedure.
== END 2020-09-06 16:33 | disposition home or self-care (01) ==
LOC: ORPAIN 14:01
PROVIDERS: ATTEND Specialist
DX: M70.62 Trochanteric bursitis, left hip (principal); G58.8 Other specified mononeuropathies; M54.5 Low back pain
CPT/HCPCS: 20610; 64450; J2250; J1030; J3010; J2795

== ENCOUNTER → 2020-09-19 | Outpatient (CLI) | payer MEDICARE ==
[2020-09-19 14:00] VITALS: BP 160/78; PULSE 79; RESP 18; TEMP 97.9
--- NOTE | 2020-09-20 06:22 | P.PN ---
Subjective Progress Note Date: 09/19/20 This is a follow-up visit for this 75 years old female, with a chronic history of severe low back pain she is diagnosed with left cluneal neuralgia, and left trochanteric bursitis , thoracic spine syringomyelia , thoracic degenerative disc disease, and lumbar degenerative disc disease, and lumbar spine , spondylolisthesis, lumbar spine and facet degeneration , patient reported that most of her pain is localized in the left-sided low back area at the location of the left cluneal nerve, recently we have done cluneal nerve block 2 patient reported she had 0 benefit from it, and we have done a left trochanteric bursa steroid injection she reported that her left-sided hip pain improve completely she had no pain in that location , she continued to have severe low back pain mainly on the left side low back area, she denies any motor or sensory deficit, she denies any fever or night sweats and she reported that pain is constant and increases with any activity interfere with the quality of life Objective - Vital Signs Vital signs: Vital Signs Temp 97.9 F 09/19/20 13:53 Pulse 79 09/19/20 13:53 Resp 18 09/19/20 13:53 BP 160/78 09/19/20 13:53 Pulse Ox 99 09/19/20 13:53 - Exam -Constitutiona : Cooperative , not in acute distress . -HEENT : nech : supple , no Lymphadenopathy , normal thyroid size . : eyes : no ptosis , no icterus, no photophobia . . - neurologic : Cranial nerve II to XII intact , no focal neurological deffecit . -psychatric : alert , oriented X 3 , appropriate affect , intact judgment and insight . -Lymphatic : no Lymphadenopathy . - musculoskeltal : Lumber spine moter stegnth lower extremities ,thigh and legs 5/5 Right side , 5/5 Left side deep tendon reflexes : normal Knee Jerk , normal ankle Jerk lumber facet Loading Test = positive on the left side Range of motion of the lumbar spine Flexion 60 degrees, extension 30 degrees strait leg raising test = negative bilaterally Fabere test= positive Right , and positive LT . Sever tenderness over the Left iliac crest at the location of the left cluneal nerve Assessment and Plan Plan: Assessment and plan=1- left Cluneal nerve neuralgia, 2-left trochanteric bursitis. 3-lumbar degenerative disc disease. 4-lumbar spondylolisthesis. 5-lumbar spondylosis with lumbar facet arthropathy. 6-thoracic syrengymeilia Patient continued to have severe low back pain mainly on the left side she had no benefit from left cluneal nerve block Patient could benefit from lumbar epidural steroid injection at L3 4 left paramedian approach - PQRS measures = - Patient's medications are documented in the chart. -Tobacco use is negative and counseling.Given. -Patient's has not received pneumococcal vaccine. -Advanced care planning discussed, patient not eligible. -Opiate contract signed. -Pain positive and follow-up visit/procedure is scheduled. -Patient's blood pressure measured [ 160/78 ] , and documented in the record ,and patient will follow up with the primary care. -Patient's weight was measured and body mass index ,above the normal limits and counseling was done. and patient instructed to follow-up with the primary care physician. -Patient was not identified as an unhealthy alcohol user Time with Patient: Less than 30
== END | disposition home or self-care (01) ==
LOC: PNWHC3 13:45
PROVIDERS: ATTEND Specialist
DX: G58.8 Other specified mononeuropathies (principal); M51.36 Other intervertebral disc degeneration, lumbar region; M43.16 Spondylolisthesis, lumbar region; M47.816 Spondylosis without myelopathy or radiculopathy, lumbar region; M70.62 Trochanteric bursitis, left hip
CPT/HCPCS: 99211

== ENCOUNTER 2020-09-23 06:12 | Day surgery (SDC) | payer MEDICARE ==
[2020-09-22 10:38] VITALS: BMI 34.8
[2020-09-23] MEDS ORDERED: LACTATED RINGERS 1,000 ML IV ONE ×2 (06:38)
[2020-09-23 06:39] VITALS: TEMP 97.8
[2020-09-23] MEDS ORDERED: LIDOCAINE 1% (10MG/ML) FOR IV START INTRADERMA ONE (06:39)
[2020-09-23] MEDS ORDERED: TRIAMCINOLONE ACETONIDE 40 MG/ML 1 ML VIAL ONE (07:36)
[2020-09-23] MEDS ORDERED: IOPAMIDOL M200 10 ML VIAL ONE (07:36)
[2020-09-23] MEDS ORDERED: methylPREDNISolone ACETATE 40 MG/ML 1 ML VIAL ONE (07:36)
[2020-09-23] MEDS ORDERED: MIDAZOLAM 2 MG/2 ML VIAL ONE (07:36)
[2020-09-23] MEDS ORDERED: SODIUM CHLORIDE 0.9% (PF) 10 ML VIAL ONE (07:36)
--- NOTE | 2020-09-23 07:48 | P.PCN ---
Date of Procedure: 09/23/20 Procedure(s) Performed: PREOPERATIVE DIAGNOSIS: 1- Lumbar Degenerative Disc Diseases 2-Lumbar spondylosis with Facet arthropathy without myelopathy. 3-left peroneal nerve neuralgia. 4-lumbar spondylolisthesis. 5-thoracic syringomyelia. 6-left trochanteric bursitis. POSTOPERATIVE DIAGNOSIS: Same as preop diagnosis. PROCEDURE 1. Lumbar epidural steroid injection under fluoroscopic guidance at the L3-4 level. (left paramedian approach) (Fluoroscopy imaging was available in radiology department) 2. Lumbar epidurogram. ANESTHESIA: Monitored anesthesia care provided by anesthesia department EBL: Minimal PROCEDURE INDICATION: The patient with low back pain and radiculitis symptoms unresponsive to conservative treatment. Fluoroscopy was used to optimize visualization of the needle placement and to maximize safety. PROCEDURE DESCRIPTION / TECHNIQUE: The patient was seen and identified in the preoperative area. Risks, benefits, complications including but not limited to infections ,bleeding ,allergic reaction to the medications ,nerve damage and not complete pain releife , and alternatives were discussed with the patient. The patient agreed to proceed with the procedure and signed the consent. IV was started, and vital signs were stable. Patient was taken to the OR and time out was completed. The patient was placed in the prone position on procedure table and a pillow was placed under the abdomen to reduce lumbar lordosis. The lumbosacral area was prepped and draped in the usual sterile fashion.ere closely monitored during the procedure. Conscious sedation was used during the procedure to decrease patients anxiety. Vital signs was monitered during the entire procedure. Using anterior-posterior fluoroscopy, the L3-4 interlaminar space was identified and the skin over this site was marked and then infiltrated with 1% lidocaine subcutaneously. Subsequently, a 20-gauge Tuohy epidural needle was inserted and advanced toward the epidural space using the ``Loss of resistance technique and guided by AP and lateral fluoroscopy. The correct needle position in the epidural space was verified with the injection of 2 mL of the water soluble contrast dye Isovue 200 contrast and observing an excellent epidurogram with the epidural spread of the dye, after negative aspiration for blood and CSF and in the absence of paresthesias. Again after negative aspiration, a 6 ml mixture containing 80 mg of Depo-medrol , and 2 ml of preservative free Normal Saline, and 2 ml of preservative free lidocaine 1% solution was injected and a washout of epidurogram was seen. Needle was withdrawn intact, skin was cleansed, and bandages were applied. COMPLICATIONS: None DISPOSITION / PLANS: The patient was placed in a supine position and transferred to the recovery area in a stable condition for observation. There was no evidence of lower extremity motor or sensory deficit after the procedure. Patient was discharged from the recovery room after meeting discharge criteria. Home discharge instructions were given to the patient by the staff. The patient was reexamined prior to discharge. The patient will schedule a follow up in the clinic in 2-4 weeks.
--- NOTE | 2020-09-23 08:08 | FL ---
Fluoroscopy INDICATION: Pain FINDINGS: Fluoroscopy time: 0.02 Minutes Images obtained: 1. IMPRESSIONS: 1. Documentation of fluoroscopy.
[2020-09-23 08:09] VITALS: RESP 16
[2020-09-23 08:13] VITALS: BP 187/76; PULSE 85
[2020-09-23] MEDS ORDERED: IV FLUID CONTINUATION 100 ML IV ONE (08:15)
== END 2020-09-23 08:27 | disposition home or self-care (01) ==
LOC: ORPAIN 06:12
PROVIDERS: ATTEND Specialist
DX: M43.16 Spondylolisthesis, lumbar region (principal); G95.0 Syringomyelia and syringobulbia; M70.62 Trochanteric bursitis, left hip; I10 Essential (primary) hypertension; E78.5 Hyperlipidemia, unspecified; J45.909 Unspecified asthma, uncomplicated; G47.33 Obstructive sleep apnea (adult) (pediatric); Z99.89 Dependence on other enabling machines and devices; E07.9 Disorder of thyroid, unspecified; Z79.890 Hormone replacement therapy; Z79.899 Other long term (current) drug therapy; Z78.0 Asymptomatic menopausal state
CPT/HCPCS: 62323; J2250; J1030; Q9966

== ENCOUNTER 2021-03-11 20:31 | Emergency (ER) | payer MEDICARE ==
[2021-03-11 21:01] VITALS: BP 160/80; PULSE 107; RESP 20; TEMP 97.6
[2021-03-11] MEDS ORDERED: SODIUM CHLORIDE 0.9% 1,000 ML IV STA (21:16)
[2021-03-11] MEDS ORDERED: ONDANSETRON 4 MG/2 ML VIAL IVP STA (21:16)
--- NOTE | 2021-03-11 21:19 | ED ---
General Adult HPI - General Chief complaint: Nausea/Vomiting/Diarrhea Stated complaint: Vomiting Time Seen by Provider: 03/11/21 21:05 Source: patient Mode of arrival: ambulatory Limitations: no limitations - History of Present Illness Initial comments: Dictation was produced using [employer] dictation software. please excuse any grammatical, word or spelling errors. Chief Complaint: 75-year-old field past nuchal history of asthma, dyslipidemia hypertension presents to the emergency department for nausea and vomiting. History of Present Illness: 75-year-old female presents to the emergency department for nausea and vomiting. She states she had cataract surgery early last week. She started having nausea, days later. She states she's been having nausea for 4 days. Patient had an obvious nonbloody emesis. Denies any new medications. She does not have any pain. No abdominal pain. Patient does have a history of bowel obstruction. Denies a sensation of room spinning. Denies any dizziness. The ROS documented in this emergency department record has been reviewed and confirmed by me. Those systems with pertinent positive or negative responses have been documented in the HPI. All other systems are other negative and/or noncontributory. PHYSICAL EXAM: General Impression: Alert and oriented x3, not in acute distress HEENT: Normocephalic atraumatic, extra-ocular movements intact, pupils equal and reactive to light bilaterally, mucous membranes moist. Cardiovascular: Heart regular rate and rhythm Chest: Able to complete full sentences, no retractions, no tachypnea Abdomen: abdomen soft, non-tender, non-distended, no organomegaly Musculoskeletal: Pulses present and equal in all extremities, no peripheral balaji a Motor: no focal deficits noted Neurological: CN II-XII grossly intact, no focal motor or sensory deficits noted Skin: Intact with no visualized rashes Psych: Normal affect and mood ED course: 75-year-old female presents to the emergency department for nausea and vomiting. Vital Signs upon arrival shows heart rate of 107, rest of vital signs within acceptable limits. EKG is unremarkable. Laboratory evaluation unremarkable. CBC, metabolic panel, abdominal labs are within acceptable limits. Patient feels better after IV fluids and antiemetics. Patient given prescription for Zofran ODT's. She'll be discharged advised follow-up with PCP. EKG interpretation: Ventricular rate 90, normal sinus rhythm, OR interval 144, QRS 92, QTc 445. No OR prolongation, no QTC prolongation, no ST or T-wave changes noted. Overall, this EKG is unremarkable - Related Data Home Medications Medication Instructions Recorded Confirmed Albuterol Sulfate [Proair Hfa] 1 puff INHALATION BID PRN 02/15/15 09/22/20 Cholecalciferol [Vitamin D3 (25 2,000 unit PO DAILY 02/15/15 09/22/20 Mcg = 1000 Iu)] Levothyroxine Sodium [Synthroid] 75 mcg PO DAILY 02/15/15 09/22/20 Losartan Potassium 100 mg PO QAM 02/15/15 09/22/20 Multivitamins, Thera [Multivitamin 1 tab PO DAILY 02/15/15 09/22/20 (formulary)] Simvastatin 10 mg PO DAILY 02/15/15 09/22/20 Venlafaxine HCl [Venlafaxine HCl 150 mg PO DAILY 02/15/15 09/22/20 ER] Ascorbic Acid [Vitamin C] 1,000 mg PO DAILY 05/16/17 09/22/20 amLODIPine BESYLATE [Norvasc] 5 mg PO DAILY 05/16/17 09/22/20 Hydrochlorothiazide 12.5 mg PO DAILY PRN 07/30/17 09/22/20 [hydroCHLOROthiazide] Calcium Carb/Vitamin D3/Vit K1 2 each PO DAILY 06/27/20 09/22/20 [Viactiv Soft Chew Tablet] Fexofenadine HCl [Caro Allergy] 180 mg PO DAILY 06/27/20 09/22/20 Gabapentin [Neurontin] 100 mg PO TID 06/27/20 09/22/20 Ibuprofen 600 mg PO DAILY PRN 07/18/20 09/22/20 Previous Rx's Medication Instructions Recorded Ondansetron Odt [Zofran Odt] 4 mg PO Q8HR PRN #12 tab 03/11/21 Allergies Allergy/AdvReac Type Severity Reaction Status Date / Time No Known Allergies Allergy Verified 09/22/20 10:35 Review of Systems ROS Statement: Those systems with pertinent positive or pertinent negative responses have been documented in the HPI. ROS Other: All systems not noted in ROS Statement are negative. Past Medical History Past Medical History: Asthma, GERD/Reflux, Hyperlipidemia, Hypertension, Osteoarthritis (OA), Sleep Apnea/CPAP/BIPAP, Thyroid Disorder Additional Past Medical History / Comment(s): C-PAP, HX OF BOWEL OBSTRUCTION X2 WITH SURGERY, BACK PAIN, FATHER HAD TB AND SHE RECEIVED TX IN 1990. NEUROPATHY RIGHT LEG AND TOES, STATES UNSTEADY DUE TO BACK PAIN. History of Any Multi-Drug Resistant Organisms: None Reported Past Surgical History: Bowel Resection, Breast Surgery, Hysterectomy Additional Past Surgical History / Comment(s): Multiple BILATERAL BREAST bx and lumpectomy benign, bowel resection x2, REPAIR OF A POUCH ON THE ESOPHAGUS -RIGHT SIDE OF NECK. PAIN CLINIC PROCEDURES cataracts Past Anesthesia/Blood Transfusion Reactions: Motion Sickness Additional Past Anesthesia/Blood Transfusion Reaction / Comment(s): . Past Psychological History: Anxiety, Depression Smoking Status: Never smoker Past Alcohol Use History: None Reported Past Drug Use History: None Reported - Past Family History Mother Family Medical History: No Reported History Father Family Medical History: Cancer Additional Family Medical History / Comment(s): Prostate cancer at age 82. General Exam Limitations: no limitations Course Vital Signs 03/11/21 20:52 Temperature 97.6 F Pulse Rate 107 H Respiratory 20 Rate Blood Pressure 160/80 O2 Sat by Pulse 97 Oximetry Medical Decision Making - Lab Data Result diagrams: 03/11/21 21:38 03/11/21 21:38 Lab Results 03/11/21 03/11/21 Range/Units 21:38 21:38 WBC 9.3 (3.8-10.6) k/uL RBC 4.77 (3.80-5.40) m/uL Hgb 15.3 (11.4-16.0) gm/dL Hct 44.3 (34.0-46.0) % MCV 93.0 (80.0-100.0) fL MCH 32.1 (25.0-35.0) pg MCHC 34.5 (31.0-37.0) g/dL RDW 12.8 (11.5-15.5) % Plt Count 230 (150-450) k/uL MPV 6.3 Neutrophils % 74 % Lymphocytes % 17 % Monocytes % 6 % Eosinophils % 2 % Basophils % 1 % Neutrophils # 6.9 (1.3-7.7) k/uL Lymphocytes # 1.5 (1.0-4.8) k/uL Monocytes # 0.5 (0-1.0) k/uL Eosinophils # 0.1 (0-0.7) k/uL Basophils # 0.1 (0-0.2) k/uL Sodium 139 (137-145) mmol/L Potassium 4.7 (3.5-5.1) mmol/L Chloride 103 (98-107) mmol/L Carbon Dioxide 26 (22-30) mmol/L Anion Gap 10 mmol/L BUN 19 H (7-17) mg/dL Creatinine 0.52 (0.52-1.04) mg/dL Est GFR (CKD-EPI)AfAm >90 (>60 ml/min/1.73 sqM) Est GFR (CKD-EPI)NonAf >90 (>60 ml/min/1.73 sqM) Glucose 117 H (74-99) mg/dL Calcium 9.9 (8.4-10.2) mg/dL Total Bilirubin 0.6 (0.2-1.3) mg/dL AST 37 H (14-36) U/L ALT 36 H (4-34) U/L Alkaline Phosphatase 88 (38-126) U/L Total Protein 7.5 (6.3-8.2) g/dL Albumin 4.7 (3.5-5.0) g/dL Lipase 53 (23-300) U/L Disposition Clinical Impression: Nausea Disposition: HOME SELF-CARE Condition: Good Instructions (If sedation given, give patient instructions): Acute Nausea and Vomiting (ED) Prescriptions: Ondansetron Odt [Zofran Odt] 4 mg PO Q8HR PRN #12 tab PRN Reason: Nausea Is patient prescribed a controlled substance at d/c from ED?: No Referrals: Wendie Mondragon MD [Primary Care Provider] - 1-2 days
[2021-03-11 21:55] LABS: Basophils # (A) 0.1 k/uL (0-0.2); Basophils % (A) 1 %; Eosinophils # (A) 0.1 k/uL (0-0.7); Eosinophils % (A) 2 %; HCT 44.3 % (34.0-46.0); HGB 15.3 gm/dL (11.4-16.0); Lymphocytes # (A) 1.5 k/uL (1.0-4.8); Lymphocytes % (A) 17 %; MCH 32.1 pg (25.0-35.0); MCHC 34.5 g/dL (31.0-37.0); Mean Platelet Volume 6.3; Monocytes # (A) 0.5 k/uL (0-1.0); Monocytes % (A) 6 %; Neutrophils # (A) 6.9 k/uL (1.3-7.7); Neutrophils % (A) 74 %; Platelet Count 230 k/uL (150-450); RBC 4.77 m/uL (3.80-5.40); RDW 12.8 % (11.5-15.5); WBC 9.3 k/uL (3.8-10.6)
[2021-03-11 22:05] LABS: ALT 36 U/L (4-34); African American GFR (CKD) >90 (>60 ml/min/1.73 sqM); Albumin 4.7 g/dL (3.5-5.0); Anion Gap 10 mmol/L; Blood Urea Nitrogen 19 mg/dL (7-17); Calcium 9.9 mg/dL (8.4-10.2); Carbon Dioxide 26 mmol/L (22-30); Chloride 103 mmol/L (98-107); Glucose 117 mg/dL (74-99); Lipase 53 U/L (23-300); Non-African American GFR(CKD) >90 (>60 ml/min/1.73 sqM); Sodium 139 mmol/L (137-145); Total Bilirubin 0.6 mg/dL (0.2-1.3); Total Protein 7.5 g/dL (6.3-8.2)
[2021-03-11 22:07] LABS: AST 37 U/L (14-36); Alkaline Phosphatase 88 U/L (38-126); Potassium 4.7 mmol/L (3.5-5.1)
[2021-03-11] MEDS ORDERED: ONDANSETRON 4 MG ODT STARTER PACK 2 TAB BTL PO STA (22:17)
== END 2021-03-11 23:00 | disposition home or self-care (01) ==
LOC: EC 20:31
DX: R11.2 Nausea with vomiting, unspecified (principal); J45.909 Unspecified asthma, uncomplicated; K21.9 Gastro-esophageal reflux disease without esophagitis; E78.5 Hyperlipidemia, unspecified; I10 Essential (primary) hypertension; M19.90 Unspecified osteoarthritis, unspecified site
CPT/HCPCS: 36415; 93005; 80053; 83690; 85025; 99284; 96374; 96361; J2405; S0119

== ENCOUNTER 2021-03-15 10:45 | Emergency (ER) | payer MEDICARE ==
--- NOTE | 2021-03-15 10:57 | ED ---
General Adult HPI - General Source: patient, RN notes reviewed Mode of arrival: ambulatory Limitations: no limitations <Camron Castillo - Last Filed: 03/15/21 10:55> <Vicente Lopez - Last Filed: 03/15/21 13:38> - General Stated complaint: Nausea Time Seen by Provider: 03/15/21 10:56 - History of Present Illness Initial comments: 75-year-old female presents emergency Department chief complaint of nausea times one week. Patient was seen here Saturday night had workup which is negative. Patient was discharged with Zofran she states that she's been taken at home with no relief. Patient states this started after cataract surgery. Patient denies any medications. Denies chest pain shortness breath dizziness headache fever or chills diarrhea constipation. No abdominal pain no pain anywhere else. Patient was seen by [facility] urgent care sent over for evaluation. (Camron Castillo) This is a 75-year-old female presents emergency Department complaining of a one- week history of nausea with some dry heaving. Patient states she has not had any actual vomiting for days. Patient states she was here on Saturday but she continues to have vomiting with Zofran. Patient denies any abdominal pain. Patient denies any chest pain. Patient denies any shortness of breath or difficulty breathing. Patient denies any fever chills per patient denies diarrhea. Patient states she's had multiple abdominal surgeries. Patient denies any dysuria hematuria urinary frequency. Patient states she went to the urgent care today and they sent to the emergency department. (Vicente Lopez) - Related Data Home Medications Medication Instructions Recorded Confirmed Albuterol Sulfate [Proair Hfa] 1 puff INHALATION RT-Q4H PRN 02/15/15 03/15/21 Cholecalciferol [Vitamin D3 (25 2,000 unit PO DAILY 02/15/15 03/15/21 Mcg = 1000 Iu)] Levothyroxine Sodium [Synthroid] 75 mcg PO DAILY 02/15/15 03/15/21 Losartan Potassium 100 mg PO DAILY 02/15/15 03/15/21 Multivitamins, Thera [Multivitamin 1 tab PO DAILY 02/15/15 03/15/21 (formulary)] Simvastatin 20 mg PO DAILY 02/15/15 03/15/21 Venlafaxine HCl [Venlafaxine HCl 150 mg PO DAILY 02/15/15 03/15/21 ER] Ascorbic Acid [Vitamin C] 1,000 mg PO DAILY 05/16/17 03/15/21 amLODIPine BESYLATE [Norvasc] 5 mg PO DAILY 05/16/17 03/15/21 Hydrochlorothiazide 12.5 mg PO Q48H 07/30/17 03/15/21 [hydroCHLOROthiazide] Calcium Carb/Vitamin D3/Vit K1 1 tab PO DAILY 06/27/20 03/15/21 [Viactiv Soft Chew Tablet] Gabapentin [Neurontin] 100 mg PO TID 06/27/20 03/15/21 Calcium Carbonate [Calcium] 600 mg PO DAILY 03/15/21 03/15/21 Cyclobenzaprine [Flexeril] 10 mg PO TID PRN 03/15/21 03/15/21 Ibandronate Sodium [Boniva] 150 mg PO QMONTHLY 03/15/21 03/15/21 Meloxicam [Mobic] 15 mg PO DAILY PRN 03/15/21 03/15/21 Ofloxacin 0.3% Ophth Soln [Ocuflox 1 drops LEFT EYE TID 03/15/21 03/15/21 Ophth Soln] Ondansetron [Zofran] 4 mg PO Q8H PRN 03/15/21 03/15/21 Vitamin B Complex 1 cap PO DAILY 03/15/21 03/15/21 Previous Rx's Medication Instructions Recorded Metoclopramide [Reglan] 5 mg PO ACHS 5 Days #20 tab 03/15/21 Omeprazole [PriLOSEC] 20 mg PO DAILY #10 cap 03/15/21 Allergies Allergy/AdvReac Type Severity Reaction Status Date / Time No Known Allergies Allergy Verified 03/15/21 11:57 Review of Systems ROS Other: All systems not noted in ROS Statement are negative. <Camron Castillo - Last Filed: 03/15/21 10:55> ROS Other: All systems not noted in ROS Statement are negative. <Vicente Lopez - Last Filed: 03/15/21 13:38> ROS Statement: Those systems with pertinent positive or pertinent negative responses have been documented in the HPI. Past Medical History Past Medical History: Asthma, GERD/Reflux, Hyperlipidemia, Hypertension, Osteoarthritis (OA), Sleep Apnea/CPAP/BIPAP, Thyroid Disorder Additional Past Medical History / Comment(s): C-PAP, HX OF BOWEL OBSTRUCTION X2 WITH SURGERY, BACK PAIN, FATHER HAD TB AND SHE RECEIVED TX IN 1990. NEUROPATHY RIGHT LEG AND TOES, STATES UNSTEADY DUE TO BACK PAIN. History of Any Multi-Drug Resistant Organisms: None Reported Past Surgical History: Bowel Resection, Breast Surgery, Hysterectomy Additional Past Surgical History / Comment(s): Multiple BILATERAL BREAST bx and lumpectomy benign, bowel resection x2, REPAIR OF A POUCH ON THE ESOPHAGUS -RIGHT SIDE OF NECK. PAIN CLINIC PROCEDURES cataracts Past Anesthesia/Blood Transfusion Reactions: Motion Sickness Additional Past Anesthesia/Blood Transfusion Reaction / Comment(s): . Past Psychological History: Anxiety, Depression Smoking Status: Never smoker Past Alcohol Use History: None Reported Past Drug Use History: None Reported - Past Family History Mother Family Medical History: No Reported History Father Family Medical History: Cancer Additional Family Medical History / Comment(s): Prostate cancer at age 82. <Camron Castillo - Last Filed: 03/15/21 10:55> General Exam <Vicente Lopez - Last Filed: 03/15/21 13:38> - General Exam Comments Initial Comments: GENERAL: Patient is well-developed and well-nourished. Patient is nontoxic and well- hydrated and is in mild distress. ENT: Neck is soft and supple. No significant lymphadenopathy is noted. Oropharynx is clear. Mild membranes. Neck has full range of motion without eliciting any pain. EYES: The sclera were anicteric and conjunctiva were pink and moist. Extraocular movements were intact and pupils were equal round and reactive to light. Eyelids were unremarkable. PULMONARY: Unlabored respirations. Good breath sounds bilaterally. No audible rales rhonchi or wheezing was noted. CARDIOVASCULAR: There is a regular rate and rhythm without any murmurs gallops or rubs. ABDOMEN: Soft and nontender with normal bowel sounds. SKIN: Skin is clear with no lesions or rashes and otherwise unremarkable. NEUROLOGIC: Patient is alert and oriented x3. Cranial nerves II through XII are grossly intact. Motor and sensory are also intact. Normal speech, volume and content. Symmetrical smile. MUSCULOSKELETAL: Normal extremities with adequate strength and full range of motion. No lower extremity swelling or edema. No calf tenderness. LYMPHATICS: No significant lymphadenopathy is noted PSYCHIATRIC: Normal psychiatric evaluation. (Vicente Lopez) Course Vital Signs 03/15/21 10:55 Temperature 98.1 F Pulse Rate 74 Respiratory 18 Rate Medical Decision Making - Lab Data Result diagrams: 03/15/21 12:04 03/15/21 12:04 <Vicente Lopez - Last Filed: 03/15/21 13:38> - Medical Decision Making EKG shows normal sinus rhythm at 73 bpm KS interval is on a 40 QRS is 94 QT interval 420 QTC is 462. Patient's EKG shows no ST segment elevation or depression. I will back to reevaluate the patient she stated she was feeling better. (Vicente Lopez) - Lab Data Lab Results 03/15/21 03/15/21 Range/Units 12:04 12:04 WBC 6.9 (3.8-10.6) k/uL RBC 4.81 (3.80-5.40) m/uL Hgb 14.8 (11.4-16.0) gm/dL Hct 45.0 (34.0-46.0) % MCV 93.6 (80.0-100.0) fL MCH 30.7 (25.0-35.0) pg MCHC 32.8 (31.0-37.0) g/dL RDW 13.3 (11.5-15.5) % Plt Count 228 (150-450) k/uL MPV 6.3 Neutrophils % 69 % Lymphocytes % 21 % Monocytes % 6 % Eosinophils % 2 % Basophils % 1 % Neutrophils # 4.8 (1.3-7.7) k/uL Lymphocytes # 1.5 (1.0-4.8) k/uL Monocytes # 0.4 (0-1.0) k/uL Eosinophils # 0.1 (0-0.7) k/uL Basophils # 0.1 (0-0.2) k/uL Sodium 141 (137-145) mmol/L Potassium 4.0 (3.5-5.1) mmol/L Chloride 105 (98-107) mmol/L Carbon Dioxide 30 (22-30) mmol/L Anion Gap 6 mmol/L BUN 19 H (7-17) mg/dL Creatinine 0.52 (0.52-1.04) mg/dL Est GFR (CKD-EPI)AfAm >90 (>60 ml/min/1.73 sqM) Est GFR (CKD-EPI)NonAf >90 (>60 ml/min/1.73 sqM) Glucose 106 H (74-99) mg/dL Calcium 9.3 (8.4-10.2) mg/dL Total Bilirubin 0.4 (0.2-1.3) mg/dL AST 35 (14-36) U/L ALT 37 H (4-34) U/L Alkaline Phosphatase 83 (38-126) U/L Total Protein 6.9 (6.3-8.2) g/dL Albumin 4.3 (3.5-5.0) g/dL Lipase 50 (23-300) U/L Disposition <Camron Castillo - Last Filed: 03/15/21 10:55> Is patient prescribed a controlled substance at d/c from ED?: No Time of Disposition: 13:32 <Vicente Lopez - Last Filed: 03/15/21 13:38> Clinical Impression: Nausea & vomiting Disposition: HOME SELF-CARE Condition: Good Instructions (If sedation given, give patient instructions): Acute Nausea and Vomiting (ED) Prescriptions: Omeprazole [PriLOSEC] 20 mg PO DAILY #10 cap Metoclopramide [Reglan] 5 mg PO ACHS 5 Days #20 tab Referrals: Wendie Mondragon MD [Primary Care Provider] - 1-2 days
[2021-03-15 10:58] VITALS: PULSE 74; RESP 18; TEMP 98.1
[2021-03-15] MEDS ORDERED: SODIUM CHLORIDE 0.9% 1,000 ML IV ONE (11:47)
[2021-03-15] MEDS ORDERED: PANTOPRAZOLE 40 MG/10 ML VIAL IVP STA (11:51)
[2021-03-15 12:15] LABS: Basophils # (A) 0.1 k/uL (0-0.2); Basophils % (A) 1 %; Eosinophils # (A) 0.1 k/uL (0-0.7); Eosinophils % (A) 2 %; HGB 14.8 gm/dL (11.4-16.0); Lymphocytes # (A) 1.5 k/uL (1.0-4.8); Lymphocytes % (A) 21 %; MCH 30.7 pg (25.0-35.0); MCHC 32.8 g/dL (31.0-37.0); MCV 93.6 fL (80.0-100.0); Mean Platelet Volume 6.3; Monocytes # (A) 0.4 k/uL (0-1.0); Monocytes % (A) 6 %; Neutrophils # (A) 4.8 k/uL (1.3-7.7); Neutrophils % (A) 69 %; Platelet Count 228 k/uL (150-450); RBC 4.81 m/uL (3.80-5.40); RDW 13.3 % (11.5-15.5); WBC 6.9 k/uL (3.8-10.6)
[2021-03-15 12:28] LABS: ALT 37 U/L (4-34); AST 35 U/L (14-36); African American GFR (CKD) >90 (>60 ml/min/1.73 sqM); Albumin 4.3 g/dL (3.5-5.0); Alkaline Phosphatase 83 U/L (38-126); Anion Gap 6 mmol/L; Blood Urea Nitrogen 19 mg/dL (7-17); Calcium 9.3 mg/dL (8.4-10.2); Carbon Dioxide 30 mmol/L (22-30); Chloride 105 mmol/L (98-107); Glucose 106 mg/dL (74-99); Lipase 50 U/L (23-300); Non-African American GFR(CKD) >90 (>60 ml/min/1.73 sqM); Sodium 141 mmol/L (137-145); Total Bilirubin 0.4 mg/dL (0.2-1.3); Total Protein 6.9 g/dL (6.3-8.2)
--- NOTE | 2021-03-15 13:13 | XR ---
EXAMINATION TYPE: XR KUB DATE OF EXAM: 03/15/2021 1:06 PM CLINICAL HISTORY: Nausea and vomiting for a few days. TECHNIQUE: Two Upright KUB images of the abdomen are obtained. COMPARISON: None. FINDINGS: Scattered gas is seen in non-distended small and large bowel loops. There is no visceromega ly, pneumoperitoneum, or abnormal calcification appreciated. The lung bases are clear and the osseous structures are intact. IMPRESSION: Overall nonobstructive bowel gas pattern.
== END 2021-03-15 14:06 | disposition home or self-care (01) ==
LOC: EC 10:45
DX: R11.2 Nausea with vomiting, unspecified (principal); E78.5 Hyperlipidemia, unspecified; F32.9 Major depressive disorder, single episode, unspecified; F41.9 Anxiety disorder, unspecified; I10 Essential (primary) hypertension; J45.909 Unspecified asthma, uncomplicated; K21.9 Gastro-esophageal reflux disease without esophagitis; G47.30 Sleep apnea, unspecified; M19.90 Unspecified osteoarthritis, unspecified site; Z79.1 Long term (current) use of non-steroidal anti-inflammatories (NSAID); Z79.899 Other long term (current) drug therapy; Z79.51 Long term (current) use of inhaled steroids
CPT/HCPCS: 36415; 93005; 80053; 83690; 85025; 74018; 99284; 96374; 96375; 96361; C9113; J1790

== ENCOUNTER 2021-03-18 20:33 | Inpatient (IN) | payer MEDICARE ==
[2021-03-18] MEDS ORDERED: ONDANSETRON 4 MG/2 ML VIAL IVP STA (23:03)
[2021-03-18] MEDS ORDERED: SODIUM CHLORIDE 0.9% 500 ML 500 ML IV STA (23:03)
[2021-03-18] MEDS ORDERED: SODIUM CHLORIDE 0.9% 1,000 ML IV STA ×2 (23:03)
[2021-03-18] MEDS ORDERED: LABETALOL 5 MG/ML VIAL MDV IVP STA (23:30)
[2021-03-18] MEDS ORDERED: LORazepam 2 MG/ML INJ IV STA (23:30)
[2021-03-18] MEDS ORDERED: PANTOPRAZOLE 40 MG/10 ML VIAL IVP STA (23:30)
--- NOTE | 2021-03-18 23:31 | ED ---
Nausea/Vomiting/Diarrhea HPI - General Chief complaint: Nausea/Vomiting/Diarrhea Stated complaint: vomiting 10 days-revisit Time Seen by Provider: 03/18/21 22:46 Source: patient, RN notes reviewed, old records reviewed Mode of arrival: wheelchair Limitations: no limitations - History of Present Illness Initial comments: This is a 75-year-old female who is relatively poor historian presents today for evaluation of persistent nausea vomiting and diarrhea for greater than a week. Patient has occasional headaches feels lightheaded dizzy, patient presents for evaluation. Patient again is a poor story history obtained from patient's prior charting MD complaint: nausea, vomiting, diarrhea -: week(s) Description of Vomiting: food contents Description of Diarrhea: water, mucous Associated Abdominal Pain: Yes Location: diffuse Radiation: none Severity: moderate Severity scale (1-10): 4 Consistency: constant Improves with: none Worsens with: vomiting Context: possible food poisoning, sick contacts Associated Symptoms: myalgias, loss of appetite, malaise, nausea/vomiting, weakness - Related Data Home Medications Medication Instructions Recorded Confirmed Albuterol Sulfate [Proair Hfa] 1 puff INHALATION RT-Q4H PRN 02/15/15 03/19/21 Cholecalciferol [Vitamin D3 (25 2,000 unit PO DAILY 02/15/15 03/19/21 Mcg = 1000 Iu)] Levothyroxine Sodium [Synthroid] 75 mcg PO DAILY 02/15/15 03/19/21 Losartan Potassium 100 mg PO DAILY 02/15/15 03/19/21 Multivitamins, Thera [Multivitamin 1 tab PO DAILY 02/15/15 03/19/21 (formulary)] Simvastatin 20 mg PO DAILY 02/15/15 03/19/21 Venlafaxine HCl [Venlafaxine HCl 150 mg PO DAILY 02/15/15 03/19/21 ER] Ascorbic Acid [Vitamin C] 1,000 mg PO DAILY 05/16/17 03/19/21 amLODIPine BESYLATE [Norvasc] 5 mg PO DAILY 05/16/17 03/19/21 Hydrochlorothiazide 12.5 mg PO DAILY 07/30/17 03/19/21 [hydroCHLOROthiazide] Calcium Carb/Vitamin D3/Vit K1 1 tab PO DAILY 06/27/20 03/19/21 [Viactiv 650 mg-12.5 Mcg Chew] Gabapentin [Neurontin] 100 mg PO TID 06/27/20 03/19/21 Calcium Carbonate [Calcium] 600 mg PO DAILY 03/15/21 03/19/21 Cyclobenzaprine [Flexeril] 10 mg PO TID PRN 03/15/21 03/19/21 Ibandronate Sodium [Boniva] 150 mg PO QMONTHLY 03/15/21 03/19/21 Meloxicam [Mobic] 15 mg PO DAILY PRN 03/15/21 03/19/21 Ofloxacin 0.3% Ophth Soln [Ocuflox 1 drops BOTH EYES TID 03/15/21 03/19/21 Ophth Soln] Ondansetron [Zofran] 4 mg PO Q8H PRN 03/15/21 03/19/21 Vitamin B Complex 1 cap PO DAILY 03/15/21 03/19/21 Metoclopramide [Reglan] 5 mg PO DAILY 03/19/21 03/19/21 Previous Rx's Medication Instructions Recorded Omeprazole [PriLOSEC] 20 mg PO DAILY #10 cap 03/15/21 Apixaban [Eliquis] 5 mg PO BID 36 Days #84 tab 03/22/21 Pantoprazole Sodium [Protonix] 40 mg PO BID 30 Days tablet. 03/22/21 Apixaban [Eliquis] 10 mg PO BID tab 03/23/21 Allergies Allergy/AdvReac Type Severity Reaction Status Date / Time No Known Allergies Allergy Verified 03/19/21 08:24 Review of Systems ROS Statement: Those systems with pertinent positive or pertinent negative responses have been documented in the HPI. ROS Other: All systems not noted in ROS Statement are negative. Past Medical History Past Medical History: Asthma, GERD/Reflux, Hyperlipidemia, Hypertension, Osteoarthritis (OA), Sleep Apnea/CPAP/BIPAP, Thyroid Disorder Additional Past Medical History / Comment(s): C-PAP, HX OF BOWEL OBSTRUCTION X2 WITH SURGERY, BACK PAIN, FATHER HAD TB AND SHE RECEIVED TX IN 1990. NEUROPATHY RIGHT LEG AND TOES, STATES UNSTEADY DUE TO BACK PAIN. History of Any Multi-Drug Resistant Organisms: None Reported Past Surgical History: Bowel Resection, Breast Surgery, Hysterectomy Additional Past Surgical History / Comment(s): Multiple BILATERAL BREAST bx and lumpectomy benign, bowel resection x2, REPAIR OF A POUCH ON THE ESOPHAGUS -RIGHT SIDE OF NECK. PAIN CLINIC PROCEDURES cataracts Past Anesthesia/Blood Transfusion Reactions: Motion Sickness Additional Past Anesthesia/Blood Transfusion Reaction / Comment(s): . Past Psychological History: Anxiety, Depression Smoking Status: Never smoker Past Alcohol Use History: None Reported Past Drug Use History: None Reported - Past Family History Mother Family Medical History: No Reported History Father Family Medical History: Cancer Additional Family Medical History / Comment(s): Prostate cancer at age 82. General Exam Limitations: no limitations General appearance: alert, in no apparent distress, anxious Head exam: Present: atraumatic, normocephalic, normal inspection Eye exam: Present: normal appearance, PERRL, EOMI. Absent: scleral icterus, conjunctival injection, periorbital swelling ENT exam: Present: normal exam, mucous membranes moist Neck exam: Present: normal inspection. Absent: tenderness, meningismus, lymphadenopathy Respiratory exam: Present: normal lung sounds bilaterally. Absent: respiratory distress, wheezes, rales, rhonchi, stridor Cardiovascular Exam: Present: tachycardia, irregular rhythm, normal heart sounds. Absent: systolic murmur, diastolic murmur, rubs, gallop, clicks GI/Abdominal exam: Present: soft, normal bowel sounds. Absent: distended, tenderness, guarding, rebound, rigid Extremities exam: Present: normal inspection, full ROM, normal capillary refill. Absent: tenderness, pedal edema, joint swelling, calf tenderness Back exam: Present: normal inspection Neurological exam: Present: alert, oriented X3, CN II-XII intact Psychiatric exam: Present: normal affect, normal mood Skin exam: Present: warm, dry, intact, normal color. Absent: rash Course Vital Signs 03/18/21 03/18/21 03/19/21 21:35 23:15 00:30 Temperature 99.0 F Pulse Rate 149 H 112 H 111 H Respiratory 24 20 18 Rate Blood Pressure 228/109 228/117 147/72 O2 Sat by Pulse 95 95 98 Oximetry 03/19/21 03/19/21 03/19/21 01:30 02:00 06:16 Temperature 98.9 F Pulse Rate 80 87 98 Respiratory 18 24 18 Rate Blood Pressure 179/85 162/82 129/58 O2 Sat by Pulse 98 99 96 Oximetry 06/06/21 06/06/21 06/06/21 07:45 09:19 11:00 Temperature 98.8 F Pulse Rate 75 68 84 Respiratory 18 18 16 Rate Blood Pressure 113/66 107/60 141/78 O2 Sat by Pulse 96 98 98 Oximetry 03/19/21 14:44 Temperature 97.4 F L Pulse Rate 81 Respiratory 16 Rate Blood Pressure 151/70 O2 Sat by Pulse 96 Oximetry - Reevaluation(s) Reevaluation #1: Medical record is reviewed Patient symptoms are improved but she does not feel well for discharge Patient informed results and questions have been answered Medical Decision Making - Medical Decision Making 75 female with persistent nausea vomiting and diarrhea will be admitted to [facility] treatment - Lab Data Result diagrams: 03/23/21 07:25 03/23/21 07:25 Lab Results 03/18/21 03/18/21 03/18/21 Range/Units 23:36 23:36 23:36 WBC 13.1 H (3.8-10.6) k/uL RBC 5.27 (3.80-5.40) m/uL Hgb 16.8 H (11.4-16.0) gm/dL Hct 48.4 H (34.0-46.0) % MCV 91.8 (80.0-100.0) fL MCH 31.9 (25.0-35.0) pg MCHC 34.7 (31.0-37.0) g/dL RDW 12.9 (11.5-15.5) % Plt Count 301 (150-450) k/uL MPV 6.3 Immature Gran % (Auto) % Absolute Nucleated RBC (0.00-0.00) X 10*3/uL Neutrophils % 81 % Lymphocytes % 12 % Monocytes % 6 % Eosinophils % 0 % Basophils % 0 % Immature Gran # (0.00-0.04) X 10*3/uL Neutrophils # 10.6 H (1.3-7.7) k/uL Lymphocytes # 1.5 (1.0-4.8) k/uL Monocytes # 0.7 (0-1.0) k/uL Eosinophils # 0.0 (0-0.7) k/uL Basophils # 0.0 (0-0.2) k/uL NRBC/100 WBC Diff (0.0-0.0) /100 WBCS PT 10.8 (9.0-12.0) sec INR 1.0 (<1.2) APTT 22.1 (22.0-30.0) sec VBG pH (7.31-7.41) VBG pCO2 (37-51) mmHg VBG HCO3 (24-28) mmol/L Sodium 140 (137-145) mmol/L Potassium 3.5 (3.5-5.1) mmol/L Chloride 102 (98-107) mmol/L Carbon Dioxide 26 (22-30) mmol/L Anion Gap 12 mmol/L BUN 15 (7-17) mg/dL Creatinine 0.56 (0.52-1.04) mg/dL Est GFR (CKD-EPI)AfAm >90 (>60 ml/min/1.73 sqM) Est GFR (CKD-EPI)NonAf >90 (>60 ml/min/1.73 sqM) BUN/Creatinine Ratio (12.00-20.00) Ratio Glucose 139 H (74-99) mg/dL Plasma Lactic Acid Ji (0.7-2.0) mmol/L Calcium 10.0 (8.4-10.2) mg/dL Phosphorus 3.9 (2.5-4.5) mg/dL Magnesium 2.0 (1.6-2.3) mg/dL Total Bilirubin 0.6 (0.2-1.3) mg/dL AST 37 H (14-36) U/L ALT 46 H (4-34) U/L Alkaline Phosphatase 108 (38-126) U/L Creatine Kinase 117 (30-135) U/L Troponin I (0.000-0.034) ng/mL Total Protein 7.7 (6.3-8.2) g/dL Albumin 4.9 (3.5-5.0) g/dL Urine Color Urine Appearance (Clear) Urine pH (5.0-8.0) Ur Specific [place] (1.001-1.035) Urine Protein (Negative) Urine Glucose (UA) (Negative) Urine Ketones (Negative) Urine Blood (Negative) Urine Nitrite (Negative) Urine Bilirubin (Negative) Urine Urobilinogen (<2.0) mg/dL Ur Leukocyte Esterase (Negative) Urine RBC (0-5) /hpf Urine WBC (0-5) /hpf Ur Squamous Epith Cells (0-4) /hpf Urine Bacteria (None) /hpf Urine Mucus (None) /hpf Coronavirus (PCR) (Not Detectd) 03/18/21 03/18/21 03/18/21 Range/Units 23:36 23:36 23:55 WBC (3.8-10.6) k/uL RBC (3.80-5.40) m/uL Hgb (11.4-16.0) gm/dL Hct (34.0-46.0) % MCV (80.0-100.0) fL MCH (25.0-35.0) pg MCHC (31.0-37.0) g/dL RDW (11.5-15.5) % Plt Count (150-450) k/uL MPV Immature Gran % (Auto) % Absolute Nucleated RBC (0.00-0.00) X 10*3/uL Neutrophils % % Lymphocytes % % Monocytes % % Eosinophils % % Basophils % % Immature Gran # (0.00-0.04) X 10*3/uL Neutrophils # (1.3-7.7) k/uL Lymphocytes # (1.0-4.8) k/uL Monocytes # (0-1.0) k/uL Eosinophils # (0-0.7) k/uL Basophils # (0-0.2) k/uL NRBC/100 WBC Diff (0.0-0.0) /100 WBCS PT (9.0-12.0) sec INR (<1.2) APTT (22.0-30.0) sec VBG pH 7.43 H (7.31-7.41) VBG pCO2 37 (37-51) mmHg VBG HCO3 24 (24-28) mmol/L Sodium (137-145) mmol/L Potassium (3.5-5.1) mmol/L Chloride (98-107) mmol/L Carbon Dioxide (22-30) mmol/L Anion Gap mmol/L BUN (7-17) mg/dL Creatinine (0.52-1.04) mg/dL Est GFR (CKD-EPI)AfAm (>60 ml/min/1.73 sqM) Est GFR (CKD-EPI)NonAf (>60 ml/min/1.73 sqM) BUN/Creatinine Ratio (12.00-20.00) Ratio Glucose (74-99) mg/dL Plasma Lactic Acid Ji 1.6 (0.7-2.0) mmol/L Calcium (8.4-10.2) mg/dL Phosphorus (2.5-4.5) mg/dL Magnesium (1.6-2.3) mg/dL Total Bilirubin (0.2-1.3) mg/dL AST (14-36) U/L ALT (4-34) U/L Alkaline Phosphatase (38-126) U/L Creatine Kinase (30-135) U/L Troponin I 0.014 (0.000-0.034) ng/mL Total Protein (6.3-8.2) g/dL Albumin (3.5-5.0) g/dL Urine Color Urine Appearance (Clear) Urine pH (5.0-8.0) Ur Specific [place] (1.001-1.035) Urine Protein (Negative) Urine Glucose (UA) (Negative) Urine Ketones (Negative) Urine Blood (Negative) Urine Nitrite (Negative) Urine Bilirubin (Negative) Urine Urobilinogen (<2.0) mg/dL Ur Leukocyte Esterase (Negative) Urine RBC (0-5) /hpf Urine WBC (0-5) /hpf Ur Squamous Epith Cells (0-4) /hpf Urine Bacteria (None) /hpf Urine Mucus (None) /hpf Coronavirus (PCR) (Not Detectd) 03/19/21 03/19/21 03/20/21 Range/Units 00:52 01:20 07:26 WBC 10.58 H (3.8-10.6) k/uL RBC 4.48 (3.80-5.40) m/uL Hgb 14.0 (11.4-16.0) gm/dL Hct 42.9 (34.0-46.0) % MCV 95.8 (80.0-100.0) fL MCH 31.3 (25.0-35.0) pg MCHC 32.6 (31.0-37.0) g/dL RDW 13.2 (11.5-15.5) % Plt Count 234 (150-450) k/uL MPV 9.0 L Immature Gran % (Auto) 0.5 % Absolute Nucleated RBC 0 (0.00-0.00) X 10*3/uL Neutrophils % 69.8 % Lymphocytes % 18.2 % Monocytes % 8.3 % Eosinophils % 2.4 % Basophils % 0.8 % Immature Gran # 0.05 H (0.00-0.04) X 10*3/uL Neutrophils # 7.39 (1.3-7.7) k/uL Lymphocytes # 1.93 (1.0-4.8) k/uL Monocytes # 0.88 (0-1.0) k/uL Eosinophils # 0.25 (0-0.7) k/uL Basophils # 0.08 (0-0.2) k/uL NRBC/100 WBC Diff 0 (0.0-0.0) /100 WBCS PT (9.0-12.0) sec INR (<1.2) APTT (22.0-30.0) sec VBG pH (7.31-7.41) VBG pCO2 (37-51) mmHg VBG HCO3 (24-28) mmol/L Sodium (137-145) mmol/L Potassium (3.5-5.1) mmol/L Chloride (98-107) mmol/L Carbon Dioxide (22-30) mmol/L Anion Gap mmol/L BUN (7-17) mg/dL Creatinine (0.52-1.04) mg/dL Est GFR (CKD-EPI)AfAm (>60 ml/min/1.73 sqM) Est GFR (CKD-EPI)NonAf (>60 ml/min/1.73 sqM) BUN/Creatinine Ratio (12.00-20.00) Ratio Glucose (74-99) mg/dL Plasma Lactic Acid Ji (0.7-2.0) mmol/L Calcium (8.4-10.2) mg/dL Phosphorus (2.5-4.5) mg/dL Magnesium (1.6-2.3) mg/dL Total Bilirubin (0.2-1.3) mg/dL AST (14-36) U/L ALT (4-34) U/L Alkaline Phosphatase (38-126) U/L Creatine Kinase (30-135) U/L Troponin I (0.000-0.034) ng/mL Total Protein (6.3-8.2) g/dL Albumin (3.5-5.0) g/dL Urine Color Light Yellow Urine Appearance Cloudy H (Clear) Urine pH 6.5 (5.0-8.0) Ur Specific [place] 1.039 H (1.001-1.035) Urine Protein 1+ H (Negative) Urine Glucose (UA) Negative (Negative) Urine Ketones 2+ H (Negative) Urine Blood Trace H (Negative) Urine Nitrite Negative (Negative) Urine Bilirubin Negative (Negative) Urine Urobilinogen <2.0 (<2.0) mg/dL Ur Leukocyte Esterase Negative (Negative) Urine RBC 1 (0-5) /hpf Urine WBC 9 H (0-5) /hpf Ur Squamous Epith Cells 4 (0-4) /hpf Urine Bacteria Few H (None) /hpf Urine Mucus Occasional H (None) /hpf Coronavirus (PCR) Not Detected (Not Detectd) 03/20/21 Range/Units 07:26 WBC (3.8-10.6) k/uL RBC (3.80-5.40) m/uL Hgb (11.4-16.0) gm/dL Hct (34.0-46.0) % MCV (80.0-100.0) fL MCH (25.0-35.0) pg MCHC (31.0-37.0) g/dL RDW (11.5-15.5) % Plt Count (150-450) k/uL MPV Immature Gran % (Auto) % Absolute Nucleated RBC (0.00-0.00) X 10*3/uL Neutrophils % % Lymphocytes % % Monocytes % % Eosinophils % % Basophils % % Immature Gran # (0.00-0.04) X 10*3/uL Neutrophils # (1.3-7.7) k/uL Lymphocytes # (1.0-4.8) k/uL Monocytes # (0-1.0) k/uL Eosinophils # (0-0.7) k/uL Basophils # (0-0.2) k/uL NRBC/100 WBC Diff (0.0-0.0) /100 WBCS PT (9.0-12.0) sec INR (<1.2) APTT (22.0-30.0) sec VBG pH (7.31-7.41) VBG pCO2 (37-51) mmHg VBG HCO3 (24-28) mmol/L Sodium 142 (137-145) mmol/L Potassium 3.1 L (3.5-5.1) mmol/L Chloride 105 (98-107) mmol/L Carbon Dioxide 26.1 (22-30) mmol/L Anion Gap 10.90 mmol/L BUN 13.0 (7-17) mg/dL Creatinine 0.8 (0.52-1.04) mg/dL Est GFR (CKD-EPI)AfAm 82.4 (>60 ml/min/1.73 sqM) Est GFR (CKD-EPI)NonAf 71.1 (>60 ml/min/1.73 sqM) BUN/Creatinine Ratio 16.25 (12.00-20.00) Ratio Glucose 115 H (74-99) mg/dL Plasma Lactic Acid Ji (0.7-2.0) mmol/L Calcium 8.7 (8.4-10.2) mg/dL Phosphorus 3.7 (2.5-4.5) mg/dL Magnesium 1.9 (1.6-2.3) mg/dL Total Bilirubin (0.2-1.3) mg/dL AST (14-36) U/L ALT (4-34) U/L Alkaline Phosphatase (38-126) U/L Creatine Kinase (30-135) U/L Troponin I (0.000-0.034) ng/mL Total Protein (6.3-8.2) g/dL Albumin (3.5-5.0) g/dL Urine Color Urine Appearance (Clear) Urine pH (5.0-8.0) Ur Specific [place] (1.001-1.035) Urine Protein (Negative) Urine Glucose (UA) (Negative) Urine Ketones (Negative) Urine Blood (Negative) Urine Nitrite (Negative) Urine Bilirubin (Negative) Urine Urobilinogen (<2.0) mg/dL Ur Leukocyte Esterase (Negative) Urine RBC (0-5) /hpf Urine WBC (0-5) /hpf Ur Squamous Epith Cells (0-4) /hpf Urine Bacteria (None) /hpf Urine Mucus (None) /hpf Coronavirus (PCR) (Not Detectd) - EKG Data -: EKG Interpreted by Me (EKG shows sinus tachycardia 106 ID [id number] QRS 82 QTC 470) - Radiology Data Radiology results: report reviewed (CT brain chest abdomen pelvis CT negative for acute disease), image reviewed Disposition Clinical Impression: Nausea & vomiting, Intractable nausea and vomiting, Dehydration, Gastroenteritis Disposition: ADMITTED IP TO THIS HOSP Condition: Stable Is patient prescribed a controlled substance at d/c from ED?: No
[2021-03-18 23:53] LABS: Basophils % (A) 0 %; Eosinophils % (A) 0 %; HCT 48.4 % (34.0-46.0); HGB 16.8 gm/dL (11.4-16.0); Lymphocytes # (A) 1.5 k/uL (1.0-4.8); Lymphocytes % (A) 12 %; MCH 31.9 pg (25.0-35.0); MCHC 34.7 g/dL (31.0-37.0); MCV 91.8 fL (80.0-100.0); Mean Platelet Volume 6.3; Monocytes # (A) 0.7 k/uL (0-1.0); Monocytes % (A) 6 %; Neutrophils # (A) 10.6 k/uL (1.3-7.7); Neutrophils % (A) 81 %; Platelet Count 301 k/uL (150-450); RBC 5.27 m/uL (3.80-5.40); RDW 12.9 % (11.5-15.5); WBC 13.1 k/uL (3.8-10.6)
--- NOTE | 2021-03-18 23:59 | CT ---
EXAMINATION TYPE: CT brain wo con DATE OF EXAM: 03/18/2021 COMPARISON: HISTORY: Pain CT DLP: 1074.40 mGycm Automated exposure control for dose reduction was used. There is cerebral cortical atrophy. There is no mass effect nor midline shift. There is no sign of in tracranial hemorrhage. Calvarium is intact. Skull base appears intact. IMPRESSION: Cerebral atrophy. No acute intracranial abnormality.
[2021-03-19 00:03] LABS: ALT 46 U/L (4-34); AST 37 U/L (14-36); African American GFR (CKD) >90 (>60 ml/min/1.73 sqM); Albumin 4.9 g/dL (3.5-5.0); Alkaline Phosphatase 108 U/L (38-126); Anion Gap 12 mmol/L; Blood Urea Nitrogen 15 mg/dL (7-17); Carbon Dioxide 26 mmol/L (22-30); Chloride 102 mmol/L (98-107); Creatine Kinase 117 U/L (30-135); Glucose 139 mg/dL (74-99); Non-African American GFR(CKD) >90 (>60 ml/min/1.73 sqM); Phosphorus 3.9 mg/dL (2.5-4.5); Potassium 3.5 mmol/L (3.5-5.1); Sodium 140 mmol/L (137-145); Total Bilirubin 0.6 mg/dL (0.2-1.3); Total Protein 7.7 g/dL (6.3-8.2)
--- NOTE | 2021-03-19 00:09 | CT ---
EXAMINATION TYPE: CT ChestAbdPelvis w con DATE OF EXAM: 03/18/2021 COMPARISON: None HISTORY: Pain CT DLP: 1777.80 mGycm Automated exposure control for dose reduction was used. CONTRAST: Performed with IV Contrast, patient injected with 100 mL of Isovue 300. Images obtained from the thoracic inlet to the floor the pelvis with IV contrast. The lungs are clear of consolidation. There is no evidence of a pulmonary mass. There is no pleural e ffusion. There is mild interstitial density left lung base. Heart is top normal in size. There is no pericardial effusion. There is no mediastinal adenopathy. There are no hilar masses. There is no pneu mothorax. There is 3 cm cyst in the left lobe of the liver. Gallbladder is intact. The bile ducts are not dilat ed. There is no pancreatic mass. Spleen is intact. Stomach is intact. There is no adrenal mass. Kidneys have normal size and contour. There is satisfactory contrast opacif ication of the kidneys. There is no hydronephrosis. Ureters are not dilated. Delayed images show norm al renal excretion. There is no retroperitoneal adenopathy. There is no evidence of thickened appendi x. There are numerous sigmoid diverticula. I see no sign of diverticulitis. There is no mesenteric edema . There is no ascites or free air. There is no evidence of bowel obstruction. There are scattered div erticula in the remainder of the large bowel. Bladder distends smoothly. There is no pelvic mass. There is no inguinal hernia. There is hysterectom y. Thoracic and lumbar vertebra appear intact. There is no compression fracture. There is degenerative d isc changes at L5-S1. Sternum is intact. The bony pelvis is intact. The hip joints are intact. Should er joints are intact. There is no evidence of a rib fracture. IMPRESSION: Moderate colonic diverticulosis without diverticulitis. Hepatic cyst. No acute abnormality.
[2021-03-19 00:24] LABS: Partial Thromboplastin Time 22.1 sec (22.0-30.0); Prothrombin Time 10.8 sec (9.0-12.0)
[2021-03-19 00:28] LABS: VBG PH 7.43 (7.31-7.41)
[2021-03-19] MEDS ORDERED: NALOXONE 0.4 MG/ML 1 ML VIAL IV PRN (01:35)
[2021-03-19] MEDS ORDERED: ONDANSETRON 4 MG/2 ML VIAL IVP PRN (01:36)
[2021-03-19] MEDS ORDERED: LORazepam 2 MG/ML INJ IV PRN (01:36)
[2021-03-19] MEDS ORDERED: PROCHLORPERAZINE INJ 10 MG/2 ML VIAL IVP PRN (01:37)
[2021-03-19] MEDS ORDERED: diphenhydrAMINE 50 MG/ML 1 ML VIAL IVP PRN (01:37)
[2021-03-19] MEDS ORDERED: METOCLOPRAMIDE 5 MG/ML 2 ML VIAL IVP PRN (01:37)
[2021-03-19 02:15] LABS: Appearance,Urine Cloudy (Clear); Bacteria,Urine Few /hpf; Bilirubin,Urine Negative (Negative); Blood,Urine Trace (Negative); Color,Urine Light Yellow; Glucose,Urine (UA) Negative (Negative); Ketones,Urine 2+ (Negative); Leukocyte Esterase,Urine Negative (Negative); Mucus,Urine Occasional /hpf; Nitrite,Urine Negative (Negative); PH, Urine 6.5 (5.0-8.0); Protein,Urine 1+ (Negative); RBC,Urine 1 /hpf (0-5); Specific Gravity,Urine 1.039 (1.001-1.035); Squamous Epithelial Cell,Urine 4 /hpf (0-4); Urobilinogen,Urine <2.0 mg/dL (<2.0); WBC,Urine 9 /hpf (0-5)
[2021-03-19] MEDS: DEXTROSE 5%-0.45% NACL 1,000 ML IV SCH ×3 (04:00→19:41)
--- NOTE | 2021-03-19 04:55 | P.HPIM ---
History of Present Illness H&P Date: 03/19/21 Patient is a 75-year-old female with a PMH of hypertension, hyperlipidemia, obstructive sleep apnea, hypothyroidism, and history of 2 bowel obstructions with subsequent resection who presented to the emergency room with complaints of intractable nausea and vomiting. The patient reports that her symptoms initially started 12 days ago and have gradually worsened and that she has been having 8-10 nonbloody episodes of vomiting daily for the past few days. She reports having gone to the emergency room multiple times and being discharged home and time with little relief. She denied abdominal pain but did note that she feels sore from her dry heaving. Denied diarrhea, chest discomfort, shortne ss of breath, cough, fever, chills. Also denied headache, urinary complaints, weakness, numbness, tingling, headaches, visual disturbances. Patient underwent an extensive evaluation in the emergency room which was all reviewed. Vital signs upon presentation were BP 220/109, pulse 149, temp 99.0, and SpO2 95% on room air. CT abdomen and pelvis without contrast revealed moderate colonic diverticulosis without diverticulitis along with a hepatic cyst with no acute intra-abdominal pathology noted. A brain CT revealed cerebral atrophy but was otherwise unremarkable. EKG revealed sinus tachycardia at 106 bpm with T-wave flattening in leads V2, V3, and III. laboratory evaluation was remarkable for leukocytosis of 13.1, hemoglobin 16.8, lactic acid 1.6, glucose 139, AST 37, ALT 46, troponin 0.014. Review of systems: Pertinent positives and negatives as discussed in HPI, a complete review of systems was performed and all other systems are negative. Physical examination: General: non toxic, no distress, appears at stated age, obese Derm: no unusual rashes/lesions no unusual ecchymoses, warm, dry Head: atraumatic, normocephalic, symmetric Eyes: EOMI, no lid lag, anicteric sclera, pupils equal round reactive to light ENT: Nose and ears atraumatic, no thrush, no pharyngeal erythema Neck: No thyromegaly, no cervical lymphadenopathy, trachea midline, supple Mouth: no lip lesion, thrush noted, mucus membranes somewhat dry Cardiovascular: S1S2 reg, no murmur, positive posterior tibial pulse bilateral, no edema, capillary refill less than 2 seconds Lungs: CTA bilateral, no rhonchi, no rales , no accessory muscle use Abdominal: soft, nontender to palpation, no guarding, no appreciable organomegaly, normal bowel sounds Ext: no gross muscle atrophy, muscle strength 5 out of 5 in all 4 extremities grossly, no contractures, Neuro: CN II-XI grossly intact, light touch intact all 4 extremities, finger to nose within normal limits, Psych: Alert, oriented, appropriate affect Assessment/plan Intractable nausea and vomiting, unclear etiology -GI consult -C/w anti-emetics -Nothing by mouth for now -Continue with IV fluids Hypertensive urgency -Continue with home antihypertensives Oral candidiasis -Start PO nystatin Leukocytosis -Likely secondary to acute stressor -No signs of active infection at this time Chronic conditions: Hyperlipidemia, hypothyroidism -Continue home medications DVT prophylaxis -heparin subq The patient is admitted with an anticipated less than 2 midnight stay for evaluation of nausea and vomiting CODE STATUS: Full Code Discussed with: Patient Anticipated discharge date: 1-[address]: Home A total of 40 minutes was spent on the care of this complex patient more than 50% of the time was spent in counseling and care coordination. Past Medical History Past Medical History: Asthma, GERD/Reflux, Hyperlipidemia, Hypertension, Osteoarthritis (OA), Sleep Apnea/CPAP/BIPAP, Thyroid Disorder Additional Past Medical History / Comment(s): C-PAP, HX OF BOWEL OBSTRUCTION X2 WITH SURGERY, BACK PAIN, FATHER HAD TB AND SHE RECEIVED TX IN 1990. NEUROPATHY RIGHT LEG AND TOES, STATES UNSTEADY DUE TO BACK PAIN. History of Any Multi-Drug Resistant Organisms: None Reported Past Surgical History: Bowel Resection, Breast Surgery, Hysterectomy Additional Past Surgical History / Comment(s): Multiple BILATERAL BREAST bx and lumpectomy benign, bowel resection x2, REPAIR OF A POUCH ON THE ESOPHAGUS -RIGHT SIDE OF NECK. PAIN CLINIC PROCEDURES cataracts Past Anesthesia/Blood Transfusion Reactions: Motion Sickness Additional Past Anesthesia/Blood Transfusion Reaction / Comment(s): . Past Psychological History: Anxiety, Depression Smoking Status: Never smoker Past Alcohol Use History: None Reported Past Drug Use History: None Reported - Past Family History Mother Family Medical History: No Reported History Father Family Medical History: Cancer Additional Family Medical History / Comment(s): Prostate cancer at age 82. Medications and Allergies Home Medications Medication Instructions Recorded Confirmed Type Albuterol Sulfate [Proair Hfa] 1 puff INHALATION RT-Q4H PRN 02/15/15 03/15/21 History Cholecalciferol [Vitamin D3 (25 2,000 unit PO DAILY 02/15/15 03/15/21 History Mcg = 1000 Iu)] Levothyroxine Sodium [Synthroid] 75 mcg PO DAILY 02/15/15 03/15/21 History Losartan Potassium 100 mg PO DAILY 02/15/15 03/15/21 History Multivitamins, Thera [Multivitamin 1 tab PO DAILY 02/15/15 03/15/21 History (formulary)] Simvastatin 20 mg PO DAILY 02/15/15 03/15/21 History Venlafaxine HCl [Venlafaxine HCl 150 mg PO DAILY 02/15/15 03/15/21 History ER] Ascorbic Acid [Vitamin C] 1,000 mg PO DAILY 05/16/17 03/15/21 History amLODIPine BESYLATE [Norvasc] 5 mg PO DAILY 05/16/17 03/15/21 History Hydrochlorothiazide 12.5 mg PO Q48H 07/30/17 03/15/21 History [hydroCHLOROthiazide] Calcium Carb/Vitamin D3/Vit K1 1 tab PO DAILY 06/27/20 03/15/21 History [Viactiv Soft Chew Tablet] Gabapentin [Neurontin] 100 mg PO TID 06/27/20 03/15/21 History Calcium Carbonate [Calcium] 600 mg PO DAILY 03/15/21 03/15/21 History Cyclobenzaprine [Flexeril] 10 mg PO TID PRN 03/15/21 03/15/21 History Ibandronate Sodium [Boniva] 150 mg PO QMONTHLY 03/15/21 03/15/21 History Meloxicam [Mobic] 15 mg PO DAILY PRN 03/15/21 03/15/21 History Metoclopramide [Reglan] 5 mg PO ACHS 5 Days #20 tab 03/15/21 Rx Ofloxacin 0.3% Ophth Soln [Ocuflox 1 drops LEFT EYE TID 03/15/21 03/15/21 History Ophth Soln] Omeprazole [PriLOSEC] 20 mg PO DAILY #10 cap 03/15/21 Rx Ondansetron [Zofran] 4 mg PO Q8H PRN 03/15/21 03/15/21 History Vitamin B Complex 1 cap PO DAILY 03/15/21 03/15/21 History Allergies Allergy/AdvReac Type Severity Reaction Status Date / Time No Known Allergies Allergy Verified 03/18/21 21:43 Physical Exam Vitals: Vital Signs Temp Pulse Resp BP Pulse Ox 03/19/21 02:00 87 24 162/82 99 03/19/21 01:30 80 18 179/85 98 03/19/21 00:30 111 H 18 147/72 98 03/18/21 23:15 112 H 20 228/117 95 03/18/21 21:35 99.0 F 149 H 24 228/109 95 Intake and Output 03/18/21 03/18/21 03/19/21 14:59 22:59 06:59 Other: Weight 88.451 kg Results CBC & Chem 7: 03/18/21 23:36 03/18/21 23:36 Labs: Abnormal Lab Results - Last 24 Hours (Table) 03/18/21 03/18/21 03/18/21 Range/Units 23:36 23:36 23:55 WBC 13.1 H (3.8-10.6) k/uL Hgb 16.8 H (11.4-16.0) gm/dL Hct 48.4 H (34.0-46.0) % Neutrophils # 10.6 H (1.3-7.7) k/uL VBG pH 7.43 H (7.31-7.41) Glucose 139 H (74-99) mg/dL AST 37 H (14-36) U/L ALT 46 H (4-34) U/L Urine Appearance (Clear) Ur Specific [place] (1.001-1.035) Urine Protein (Negative) Urine Ketones (Negative) Urine Blood (Negative) Urine WBC (0-5) /hpf Urine Bacteria (None) /hpf Urine Mucus (None) /hpf 03/19/21 Range/Units 01:20 WBC (3.8-10.6) k/uL Hgb (11.4-16.0) gm/dL Hct (34.0-46.0) % Neutrophils # (1.3-7.7) k/uL VBG pH (7.31-7.41) Glucose (74-99) mg/dL AST (14-36) U/L ALT (4-34) U/L Urine Appearance Cloudy H (Clear) Ur Specific [place] 1.039 H (1.001-1.035) Urine Protein 1+ H (Negative) Urine Ketones 2+ H (Negative) Urine Blood Trace H (Negative) Urine WBC 9 H (0-5) /hpf Urine Bacteria Few H (None) /hpf Urine Mucus Occasional H (None) /hpf
[2021-03-19] MEDS: NYSTATIN 100,000 UNIT/ML SUSP 500,000 UNIT/5 ML CUP PO SCH ×5 (06:13→21:03)
[2021-03-19] MEDS ORDERED: PANTOPRAZOLE 40 MG/10 ML VIAL IV SCH (09:00)
--- NOTE | 2021-03-19 10:40 | P.CONS ---
History of Present Illness - Reason for Consult Consult date: 03/19/21 Nausea and vomiting Requesting physician: Fidencio Khalil - Chief Complaint Nausea and vomiting - History of Present Illness 75-year-old female with a medical history significant for hyperlipidemia, was a, hypothyroidism, hypertension, prior Zenker's diverticulum status post repair and prior bowel obstructions who presented to the hospital with complaints of nausea and vomiting. Patient reports that approximately 10-12 days ago she began having intractable episodes of nausea and vomiting. This occurred after she had a cataract surgery. She reports that she has had decreased bowel movements as well as less flatus since that time. She reports last bowel movement was several days ago and that she is passing less gas. She denies any abdominal pain. She reports frequent episodes of nonbloody emesis. She denies any sick contacts or new medications except for eyedrops started after the cataract surgery. No fevers or chills. She has required surgical intervention for bowel obstruction twice in the past. Computed tomography scan on admission and significant for moderate diverticulosis in hepatic cysts with no evidence of bowel obstruction. She also previously underwent myotomy for Zenker diverticulum in 05/2017. Her last colonoscopy was in 07/2017 with polypectomy and diverticulosis noted. Laboratory evaluation on presentation significant for WBC 13.1, hemoglobin 60.8, platelet count 301,000, total bilirubin 0.6, alk phos 11/14/2007, AST 37 and ALT 46. Review of Systems REVIEW OF SYSTEMS: CONSTITUTIONAL: Denies any fevers, chills, weight change or fatigue. CARDIOVASCULAR: Denies any chest pain, palpitations or low blood pressures but was found to have significantly elevated blood pressure on presentation. RESPIRATORY: Denies any shortness of breath, hemoptysis or cough. GENITOURINARY: No dysuria or hematuria. MUSCULOSKELETAL: No weakness reported. SKIN: Denies any new rashes or lesions, jaundice or pallor. PSYCHIATRIC: Denies any anxiety but does have a history of depression. NEUROLOGY: Denies headache, denies any new focal deficits. EARS/NOSE/THROAT: No recent hearing change, congestion, nasal discharge or sore throat. EYES: No pain in eyes, discharge or change in vision. GASTROINTESTINAL: As per HPI. Past Medical History Past Medical History: Asthma, GERD/Reflux, Hyperlipidemia, Hypertension, Osteoarthritis (OA), Sleep Apnea/CPAP/BIPAP, Thyroid Disorder Additional Past Medical History / Comment(s): C-PAP, HX OF BOWEL OBSTRUCTION X2 WITH SURGERY, BACK PAIN, FATHER HAD TB AND SHE RECEIVED TX IN 1990. NEUROPATHY RIGHT LEG AND TOES, STATES UNSTEADY DUE TO BACK PAIN. History of Any Multi-Drug Resistant Organisms: None Reported Past Surgical History: Bowel Resection, Breast Surgery, Hysterectomy Additional Past Surgical History / Comment(s): Multiple BILATERAL BREAST bx and lumpectomy benign, bowel resection x2, REPAIR OF A POUCH ON THE ESOPHAGUS -RIGHT SIDE OF NECK. PAIN CLINIC PROCEDURES cataracts Past Anesthesia/Blood Transfusion Reactions: Motion Sickness Additional Past Anesthesia/Blood Transfusion Reaction / Comm: . Past Psychological History: Anxiety, Depression Smoking Status: Never smoker Past Alcohol Use History: None Reported Past Drug Use History: None Reported - Past Family History Mother Family Medical History: No Reported History Father Family Medical History: Cancer Additional Family Medical History / Comment(s): Prostate cancer at age 82. Medications and Allergies Home Medications Medication Instructions Recorded Confirmed Type Albuterol Sulfate [Proair Hfa] 1 puff INHALATION RT-Q4H PRN 02/15/15 03/19/21 History Cholecalciferol [Vitamin D3 (25 2,000 unit PO DAILY 02/15/15 03/19/21 History Mcg = 1000 Iu)] Levothyroxine Sodium [Synthroid] 75 mcg PO DAILY 02/15/15 03/19/21 History Losartan Potassium 100 mg PO DAILY 02/15/15 03/19/21 History Multivitamins, Thera [Multivitamin 1 tab PO DAILY 02/15/15 03/19/21 History (formulary)] Simvastatin 20 mg PO DAILY 02/15/15 03/19/21 History Venlafaxine HCl [Venlafaxine HCl 150 mg PO DAILY 02/15/15 03/19/21 History ER] Ascorbic Acid [Vitamin C] 1,000 mg PO DAILY 05/16/17 03/19/21 History amLODIPine BESYLATE [Norvasc] 5 mg PO DAILY 05/16/17 03/19/21 History Hydrochlorothiazide 12.5 mg PO DAILY 07/30/17 03/19/21 History [hydroCHLOROthiazide] Calcium Carb/Vitamin D3/Vit K1 1 tab PO DAILY 06/27/20 03/19/21 History [Viactiv Soft Chew Tablet] Gabapentin [Neurontin] 100 mg PO TID 06/27/20 03/19/21 History Calcium Carbonate [Calcium] 600 mg PO DAILY 03/15/21 03/19/21 History Cyclobenzaprine [Flexeril] 10 mg PO TID PRN 03/15/21 03/19/21 History Ibandronate Sodium [Boniva] 150 mg PO QMONTHLY 03/15/21 03/19/21 History Meloxicam [Mobic] 15 mg PO DAILY PRN 03/15/21 03/19/21 History Ofloxacin 0.3% Ophth Soln [Ocuflox 1 drops BOTH EYES TID 03/15/21 03/19/21 History Ophth Soln] Omeprazole [PriLOSEC] 20 mg PO DAILY #10 cap 03/15/21 03/19/21 Rx Ondansetron [Zofran] 4 mg PO Q8H PRN 03/15/21 03/19/21 History Vitamin B Complex 1 cap PO DAILY 03/15/21 03/19/21 History Metoclopramide [Reglan] 5 mg PO DAILY 03/19/21 03/19/21 History Allergies Allergy/AdvReac Type Severity Reaction Status Date / Time No Known Allergies Allergy Verified 03/19/21 08:24 Physical Exam Vitals: Vital Signs Temp Pulse Resp BP Pulse Ox 03/19/21 09:19 68 18 107/60 98 03/19/21 07:45 75 18 113/66 96 03/19/21 06:16 98.9 F 98 18 129/58 96 03/19/21 02:00 87 24 162/82 99 03/19/21 01:30 80 18 179/85 98 03/19/21 00:30 111 H 18 147/72 98 03/18/21 23:15 112 H 20 228/117 95 03/18/21 21:35 99.0 F 149 H 24 228/109 95 Intake and Output 03/18/21 03/19/21 03/19/21 22:59 06:59 14:59 Other: Weight 88.451 kg On physical examination, patient appears comfortable in no apparent distress. HEAD: Normocephalic, atraumatic. EYES: No scleral icterus. No conjunctival injection. MOUTH: No lesions, tongue midline. NECK: Trachea midline, no gross abnormalities. CHEST: Clear to auscultation with no wheezing or rhonchi appreciated. HEART: Regular rate and rhythm. ABDOMEN: Soft, obese and nontender. Bowel sounds are positive. No organomegaly. No guarding or rigidity. EXTREMITIES: No pedal edema. SKIN: No rashes, no jaundice. NEUROLOGIC: Alert and oriented x3. No focal deficits. Results CBC & Chem 7: 03/18/21 23:36 03/18/21 23:36 Labs: Abnormal Lab Results - Last 24 Hours (Table) 03/18/21 03/18/21 03/18/21 Range/Units 23:36 23:36 23:55 WBC 13.1 H (3.8-10.6) k/uL Hgb 16.8 H (11.4-16.0) gm/dL Hct 48.4 H (34.0-46.0) % Neutrophils # 10.6 H (1.3-7.7) k/uL VBG pH 7.43 H (7.31-7.41) Glucose 139 H (74-99) mg/dL AST 37 H (14-36) U/L ALT 46 H (4-34) U/L Urine Appearance (Clear) Ur Specific [place] (1.001-1.035) Urine Protein (Negative) Urine Ketones (Negative) Urine Blood (Negative) Urine WBC (0-5) /hpf Urine Bacteria (None) /hpf Urine Mucus (None) /hpf 03/19/21 Range/Units 01:20 WBC (3.8-10.6) k/uL Hgb (11.4-16.0) gm/dL Hct (34.0-46.0) % Neutrophils # (1.3-7.7) k/uL VBG pH (7.31-7.41) Glucose (74-99) mg/dL AST (14-36) U/L ALT (4-34) U/L Urine Appearance Cloudy H (Clear) Ur Specific [place] 1.039 H (1.001-1.035) Urine Protein 1+ H (Negative) Urine Ketones 2+ H (Negative) Urine Blood Trace H (Negative) Urine WBC 9 H (0-5) /hpf Urine Bacteria Few H (None) /hpf Urine Mucus Occasional H (None) /hpf CT scan - abdomen: report reviewed (Computed tomography scan of the abdomen with findings of diverticulosis and hepatic cysts.) Assessment and Plan (1) Intractable nausea and vomiting Narrative/Plan: 75-year-old female who presented to the hospital with intractable nausea and vomiting and was found to be severely hypertensive which is currently being treated. Patient reports intractable nausea and vomiting since surgery for cataracts approximate 10-12 days ago. No sick contacts, fevers or chills, u nusual foods with her only new medications being eyedrops after the cataract surgery. She reports multiple episodes of nonbloody nonbilious emesis. No prior episodes of similar complaints. She does have a history of Zenker diverticulum treated surgically in 05/2017. Last colonoscopy 07/2017 sign ificant for polyps and diverticulosis. Two prior bowel obstructions with surgical intervention, currently she reports passing only a small amount of flatus with last bowel movement several days ago. Computed tomography scan of the abdomen showing diverticulosis and hepatic cysts. Unclear etiology, may be related to uncontrolled reflux, may be related to uncontrolled hypertension on presentation, no evidence of bowel obstruction on imaging, or other etiology. Current Visit: Yes Status: Acute Code(s): R11.2 - NAUSEA WITH VOMITING, UNSPECIFIED SNOMED Code(s): 298237886 (2) Zenker's (hypopharyngeal) diverticulum Current Visit: No Status: Acute Code(s): K22.5 - DIVERTICULUM OF ESOPHAGUS, ACQUIRED SNOMED Code(s): 760280861 Plan: Supportive care Nothing by mouth except for ice chips Zofran changed [id number] Protonix increased to twice daily We'll repeat KUB x-ray tomorrow, if normal will attempt to initiate diet No plans for endoscopic at this time, if patient continues to remain symptomatic may require EGD Will reevaluate tomorrow Continue monitor symptoms and clinically Continue monitor CBC, BMP, LFTs Further recommendations pending clinical course Thank you for allowing us to participate in the care of the patient
[2021-03-19] MEDS ORDERED: ALBUTEROL HFA INHALER INHALATION PRN (15:13)
[2021-03-19] MEDS ORDERED: CYCLOBENZAPRINE 10 MG TAB PO PRN (15:13)
--- NOTE | 2021-03-19 15:59 | P.PN ---
<Robert Hodge - Last Filed: 03/19/21 14:27> Subjective Progress Note Date: 03/19/21 Hospital course: Patient is a 75-year-old female with a past medical history including hyperten charbel, hyperlipidemia, obstructive sleep apnea, hypothyroidism and history of 2 previous small bowel obstructions. Patient presented to the emergency department with a chief complaint of intractable nausea and vomiting. Patient reports nausea and vomiting began approximately 10 days ago and rapidly worsened over the past week reporting to have 8-10 episodes of vomiting per day. Patient reports in addition to this she has had constipation with last bowel movement being greater than one week ago. CT abdomen and pelvis showing no acute process, revealing moderate colonic diverticulosis without diverticulitis, and hepatic cyst. CT brain negative for acute intracranial abnormality. CBC revea ling mild leukocytosis with WBC count 13.1. BMP revealing mildly elevated AST of 37 and ALT of 46. Troponin 0.014. Urinalysis positive for glucose and ketones negative for blood or infection. Patient admitted under our services with consultation to gastroenterology. Physical exam: General: Non toxic, no distress, appears at stated age Derm: warm, dry Head: atraumatic, normocephalic, symmetric Eyes: EOMI, no lid lag, anicteric sclera Mouth: no lip lesion, mucus membranes moist Cardiovascular: S1S2 reg, no murmur, positive posterior tibial pulses b ilaterally, Lungs: CTA bilateral, no rhonchi, no rales , no accessory muscle use Abdominal: Soft, nontender to palpation, no guarding, no appreciable organomegaly Ext: no gross muscle atrophy, no edema, no contractures Neuro: CN II-XI grossly intact, no focal neuro deficits Psych: Alert, oriented, appropriate affect Plan of care: Intractable nausea and vomiting, unclear etiology -CT abdomen and pelvis showing no acute process, revealing moderate colonic diverticulosis without diverticulitis, and hepatic cyst. -GI consulted -Continue with anti-emetics -Nothing by mouth until cleared by GI -Continue gentle hydration with IV fluids Hypertensive urgency, improved -Initial blood pressure 228/109 -Monitor vital signs, control nausea and vomiting and rehydrate. Continue daily medication regimen. Oral candidiasis -Continue nystatin Hyperlipidemia -Continue daily medication management with simvastatin. Hypothyroidism -Patient to continue daily medication regimen with levothyroxine. CODE STATUS: Full code DVT prophylaxis: Heparin Discussed with: Patient and RN Anticipated discharge date: Clinical course to determine Anticipated discharge place: Home A total of 45 minutes was spent on the care of this complex patient more than 50% of the time was spent in counseling and care coordination. Objective - Vital Signs Vital signs: Vital Signs Temp 98.9 F 03/19/21 06:16 Pulse 75 03/19/21 07:45 Resp 18 03/19/21 07:45 BP 113/66 03/19/21 07:45 Pulse Ox 96 03/19/21 07:45 Intake & Output 03/18/21 03/19/21 03/19/21 18:59 06:59 18:59 Weight 88.451 kg - Labs CBC & Chem 7: 03/18/21 23:36 03/18/21 23:36 Labs: Abnormal Lab Results - Last 24 Hours (Table) 03/18/21 03/18/21 03/18/21 Range/Units 23:36 23:36 23:55 WBC 13.1 H (3.8-10.6) k/uL Hgb 16.8 H (11.4-16.0) gm/dL Hct 48.4 H (34.0-46.0) % Neutrophils # 10.6 H (1.3-7.7) k/uL VBG pH 7.43 H (7.31-7.41) Glucose 139 H (74-99) mg/dL AST 37 H (14-36) U/L ALT 46 H (4-34) U/L Urine Appearance (Clear) Ur Specific [place] (1.001-1.035) Urine Protein (Negative) Urine Ketones (Negative) Urine Blood (Negative) Urine WBC (0-5) /hpf Urine Bacteria (None) /hpf Urine Mucus (None) /hpf 03/19/21 Range/Units 01:20 WBC (3.8-10.6) k/uL Hgb (11.4-16.0) gm/dL Hct (34.0-46.0) % Neutrophils # (1.3-7.7) k/uL VBG pH (7.31-7.41) Glucose (74-99) mg/dL AST (14-36) U/L ALT (4-34) U/L Urine Appearance Cloudy H (Clear) Ur Specific [place] 1.039 H (1.001-1.035) Urine Protein 1+ H (Negative) Urine Ketones 2+ H (Negative) Urine Blood Trace H (Negative) Urine WBC 9 H (0-5) /hpf Urine Bacteria Few H (None) /hpf Urine Mucus Occasional H (None) /hpf <Kayli Hill - Last Filed: 03/19/21 17:45> Objective - Vital Signs Vital signs: Vital Signs Temp 98.0 F 03/19/21 16:05 Pulse 72 03/19/21 16:05 Resp 16 03/19/21 16:05 BP 150/82 03/19/21 16:05 Pulse Ox 95 03/19/21 16:05 Intake & Output 03/18/21 03/19/21 03/19/21 18:59 06:59 18:59 Weight 88.451 kg 88.451 kg - Labs CBC & Chem 7: 03/18/21 23:36 03/18/21 23:36 Labs: Abnormal Lab Results - Last 24 Hours (Table) 03/18/21 03/18/21 03/18/21 Range/Units 23:36 23:36 23:55 WBC 13.1 H (3.8-10.6) k/uL Hgb 16.8 H (11.4-16.0) gm/dL Hct 48.4 H (34.0-46.0) % Neutrophils # 10.6 H (1.3-7.7) k/uL VBG pH 7.43 H (7.31-7.41) Glucose 139 H (74-99) mg/dL AST 37 H (14-36) U/L ALT 46 H (4-34) U/L Urine Appearance (Clear) Ur Specific [place] (1.001-1.035) Urine Protein (Negative) Urine Ketones (Negative) Urine Blood (Negative) Urine WBC (0-5) /hpf Urine Bacteria (None) /hpf Urine Mucus (None) /hpf 03/19/21 Range/Units 01:20 WBC (3.8-10.6) k/uL Hgb (11.4-16.0) gm/dL Hct (34.0-46.0) % Neutrophils # (1.3-7.7) k/uL VBG pH (7.31-7.41) Glucose (74-99) mg/dL AST (14-36) U/L ALT (4-34) U/L Urine Appearance Cloudy H (Clear) Ur Specific [place] 1.039 H (1.001-1.035) Urine Protein 1+ H (Negative) Urine Ketones 2+ H (Negative) Urine Blood Trace H (Negative) Urine WBC 9 H (0-5) /hpf Urine Bacteria Few H (None) /hpf Urine Mucus Occasional H (None) /hpf Assessment and Plan Assessment: Robert Hodge NP rendered care for this patient independently, reviewed the findings and plan as documented in the note above. I did not physically speak with or examine the patient on this date.
[2021-03-19] MEDS: ONDANSETRON 4 MG/2 ML VIAL IVP SCH ×2 (16:44→17:58)
[2021-03-19] MEDS: GABAPENTIN 100 MG CAP PO SCH ×2 (16:48→21:07)
[2021-03-19] MEDS: HEPARIN SODIUM,PORCINE/PF 5,000 UNIT/0.5 ML SYRINGE SQ SCH (21:01)
[2021-03-19] MEDS: PANTOPRAZOLE 40 MG/10 ML VIAL IV SCH (21:01)
[2021-03-20] MEDS: ONDANSETRON 4 MG/2 ML VIAL IVP SCH ×4 (01:45→17:34)
[2021-03-20] MEDS: LEVOTHYROXINE 75 MCG TAB PO SCH (06:01)
--- NOTE | 2021-03-20 07:20 | XR ---
EXAMINATION TYPE: XR abdomen 2V DATE OF EXAM: 03/20/2021 CLINICAL DATA: 75-year-old female nausea and vomiting, history of bowel obstruction, [facility] COMPARISON: 03/15/2021 FINDINGS: No evidence for free intraperitoneal air. No dilated small bowel or air-fluid levels. Mild overall st ool burden with air and stool extending distally to the rectum. Bowel content largely secures a right renal shadow. Incidental 1.5 cm splenic artery aneurysm, partia lly calcified. Otherwise, no suspicious calcification is seen. IMPRESSION: 1. Incidental 1.5 cm splenic artery aneurysm which can be followed outpatient by vascular surgery. 2. No evidence for free air or bowel obstruction. 3. Mild stool burden.
[2021-03-20] MEDS: DEXTROSE 5%-0.45% NACL 1,000 ML IV SCH (08:24)
[2021-03-20] MEDS: ATORVASTATIN 10 MG TAB PO SCH (08:25)
[2021-03-20] MEDS: ASCORBIC ACID 500 MG TAB PO SCH (08:25)
[2021-03-20] MEDS: amLODIPine 5 MG TAB PO SCH (08:25)
[2021-03-20] MEDS: LOSARTAN 50 MG TAB PO SCH (08:26)
[2021-03-20] MEDS: HEPARIN SODIUM,PORCINE/PF 5,000 UNIT/0.5 ML SYRINGE SQ SCH ×2 (08:26→21:00)
[2021-03-20] MEDS: NYSTATIN 100,000 UNIT/ML SUSP 500,000 UNIT/5 ML CUP PO SCH ×4 (08:26→21:12)
[2021-03-20] MEDS: CHOLECALCIFEROL 25 MCG (1000 IU) TABLET PO SCH (08:26)
[2021-03-20] MEDS: GABAPENTIN 100 MG CAP PO SCH ×3 (08:26→21:12)
[2021-03-20] MEDS: CALCIUM CARBONATE 500 MG CHEWABLE PO SCH (08:26)
[2021-03-20] MEDS: PANTOPRAZOLE 40 MG/10 ML VIAL IV SCH ×2 (08:27→20:59)
[2021-03-20] MEDS: polyethylene glycoL 3350 17 GM POWD.PACK PO SCH (08:27)
[2021-03-20] MEDS: VENLAFAXINE HCL ER 150 MG CAP PO SCH (08:27)
[2021-03-20] MEDS: NON FORMULARY DRUG (Calcium Carb/Vitamin D3/Vit K1 [Viactiv 650 Mg-12.5 Mcg Chew] 1 EACH T PO SCH (08:36)
[2021-03-20] MEDS ORDERED: NON FORMULARY DRUG (Vitamin B Complex [Vitamin B Complex] 1 EACH Capsule) PO SCH (09:00)
[2021-03-20 10:47] LABS: Basophils # (A) 0.08 X 10*3/uL (0.00-0.10); Basophils % (A) 0.8 %; Eosinophils # (A) 0.25 X 10*3/uL (0.04-0.35); Eosinophils % (A) 2.4 %; HCT 42.9 % (37.2-46.3); Lymphocytes # (A) 1.93 X 10*3/uL (0.90-5.00); Lymphocytes % (A) 18.2 %; MCH 31.3 pg (27.0-32.0); MCHC 32.6 g/dL (32.0-37.0); MCV 95.8 fL (80.0-97.0); Monocytes # (A) 0.88 X 10*3/uL (0.20-1.00); Monocytes % (A) 8.3 %; Neutrophils # (A) 7.39 X 10*3/uL (1.80-7.70); Neutrophils % (A) 69.8 %; Platelet Count 234 X 10*3/uL (140-440); RBC 4.48 X 10*6/uL (4.10-5.20); RDW 13.2 % (11.5-14.5); WBC 10.58 X 10*3/uL (4.50-10.00)
--- NOTE | 2021-03-20 11:34 | P.PN ---
Subjective Progress Note Date: 03/20/21 Hospital course: Patient is a 75-year-old female with a past medical history including hypertension, hyperlipidemia, obstructive sleep apnea, hypothyroidism and hi story of 2 previous small bowel obstructions. Patient presented to the emergency department with a chief complaint of intractable nausea and vomiting. Patient reports nausea and vomiting began approximately 10 days ago and rapidly worsened over the past week reporting to have 8-10 episodes of vomiting per day. Patient reports in addition to this she has had constipation with last bowel movement being greater than one week ago. CT abdomen and pelvis showing no acute process, revealing moderate colonic diverticulosis without diverticulitis, and hepatic cyst. CT brain negative for acute intracranial abnormality. CBC revealing mild leukocytosis with WBC count 13.1. BMP revealing mildly elevated AST of 37 and ALT of 46. Troponin 0.014. Urinalysis positive for glucose and ketones negative for blood or infection. Patient admitted under our services with consultation to gastroenterology. Physical exam: Patient seen and fully evaluated at the bedside this morning. Patient reports continued significant nausea but denies any further episodes of vomiting in the past 24 hours. At this time we will advance diet to clear liquids and evaluate how patient tolerates. Patient was also seen and evaluated by GI and place patient on scheduled Zofran and increase Protonix to twice daily. KUB completed this morning showing an incidental 1.5 cm splenic artery aneurysm and mild stool burden with no evidence for free air or bowel obstruction. Patient started on MiraLAX. Patient denies any other complaints including headache, lightheadedness, dizziness, sore throat or dysphasia, chest pain or palpitations, shortness of breath, or experiencing any numbness/tingling/weakness in extremities. General: Non toxic, no distress, appears at stated age Derm: warm, dry Head: atraumatic, normocephalic, symmetric Eyes: EOMI, no lid lag, anicteric sclera Mouth: no lip lesion, mucus membranes moist Cardiovascular: S1S2 reg, no murmur, positive posterior tibial pulses bilaterally, Lungs: CTA bilateral, no rhonchi, no rales , no accessory muscle use Abdominal: Soft, nontender to palpation, no guarding, no appreciable organomegaly Ext: no gross muscle atrophy, no edema, no contractures Neuro: CN II-XI grossly intact, no focal neuro deficits Psych: Alert, oriented, appropriate affect Plan of care: Intractable nausea and vomiting, unclear etiology -CT abdomen and pelvis showing no acute process, revealing moderate colonic diverticulosis without diverticulitis, and hepatic cyst. -KUB revealing incidental 1.5 cm splenic artery aneurysm and mild stool burden with no evidence for free air or bowel obstruction. -GI consulted -Continue with anti-emetics -Nothing by mouth until cleared by GI -Continue gentle hydration with IV fluids Hypertensive urgency, resolved. Hypertension -Monitor vital signs and Continue daily medication regimen. Oral candidiasis -Continue nystatin Hyperlipidemia -Continue daily medication management with simvastatin. Hypothyroidism -Patient to continue daily medication regimen with levothyroxine. Leukocytosis, improving Splenic artery aneurysm 1.5 cm, Incidental finding on imaging -Patient will be referred to vascular surgery upon discharge for long-term monitoring and management on an outpatient basis. CODE STATUS: Full code DVT prophylaxis: Heparin Discussed with: Patient and RN Anticipated discharge date: Clinical course to determine Anticipated discharge place: Home A total of 45 minutes was spent on the care of this complex patient more than 50% of the time was spent in counseling and care coordination. Objective - Vital Signs Vital signs: Vital Signs Temp 98.3 F 03/20/21 07:00 Pulse 73 03/20/21 07:00 Resp 18 03/20/21 07:00 BP 158/80 03/20/21 07:00 Pulse Ox 91 L 03/20/21 07:00 Intake & Output 03/19/21 03/20/21 03/20/21 18:59 06:59 18:59 Weight 88.451 kg Other: Voiding Method Bedside Commode Bedside Commode # Voids 1 1 - Labs CBC & Chem 7: 03/20/21 07:26 03/18/21 23:36 Labs: Abnormal Lab Results - Last 24 Hours (Table) 03/20/21 Range/Units 07:26 WBC 10.58 H (4.50-10.00) X 10*3/uL MPV 9.0 L (9.5-12.2) fL Immature Gran # 0.05 H (0.00-0.04) X 10*3/uL
[2021-03-20 12:48] LABS: African American GFR (CKD) 82.4 (60.0-200.0); Anion Gap 10.9 mmol/L (4.00-12.00); BUN/Creat Ratio 16.25 Ratio (12.00-20.00); Calcium 8.7 mg/dL (8.7-10.3); Carbon Dioxide 26.1 mmol/L (21.6-31.8); Magnesium 1.9 mg/dL (1.5-2.4); Non-African American GFR(CKD) 71.1 (60.0-200.0); Phosphorus 3.7 mg/dL (2.4-5.1); Potassium 3.1 mmol/L (3.5-5.5)
[2021-03-20] MEDS ORDERED: Potassium Replacement Protocol 1 EACH MISC MISCELLANE PRN (13:04)
[2021-03-20] MEDS: POTASSIUM CHLORIDE ER 20 MEQ TAB.ER PO SCH ×2 (13:25→15:19)
--- NOTE | 2021-03-20 14:42 | P.PN ---
Subjective Progress Note Date: 03/20/21 Principal diagnosis: Intractable nausea and vomiting She was seen and examined lying in bed. She states she is feeling very weak still. She has not had any further vomiting since yesterday, however still has some nausea. Denies any abdominal pain. Is passing flatus, has had no bowel movement in one week. Objective - Vital Signs Vital signs: Vital Signs Temp 98.3 F 03/20/21 07:00 Pulse 73 03/20/21 07:00 Resp 18 03/20/21 07:00 BP 158/80 03/20/21 07:00 Pulse Ox 91 L 03/20/21 07:00 Intake & Output 03/19/21 03/20/21 03/20/21 18:59 06:59 18:59 Weight 88.451 kg Other: Voiding Method Bedside Commode Bedside Commode # Voids 1 1 - Exam General appearance: The patient is alert, oriented, appears in no acute distress. HET: Head is normocephalic and atraumatic. Conjunctiva pink. Sclera anicteric. Neck: Supple without lymphadenopathy. Abdomen: Soft, nontender, nondistended with bowel sounds. No guarding or rigidity. Extremities: Normal skin color and turgor. No pedal edema Skin: No rashes, no jaundice Neurological: No focal deficits. Alert and oriented 3. - Labs CBC & Chem 7: 03/20/21 07:26 03/20/21 07:26 Assessment and Plan (1) Intractable nausea and vomiting Narrative/Plan: A 5-year-old female presented to the hospital with intractable nausea and vomiting son to be severely hypertensive which is currently being treated. Patient reports intractable nausea and vomiting since surgery for cataracts approximately 10-14 days ago. She denies any sick contacts, fevers or chills, u nusual foods with her for any new medications other than eyedrops for her cataract surgery. She was reporting multiple episodes of nonbloody nonbilious emesis. No prior episodes of similar complaints. 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 Her last colonoscopy was in July 2000 617 significant for polyps and diverticulosis. 2 prior bowel obstructions with surgical intervention, currently she reports passing only small amount of flatus with last bowel movement several days ago. Computed tomography scan of the abdomen showing diverticulosis and hepatic cyst. Unclear etiology, may be related to uncontrolled reflux, controlled hypertension on presentation, with no evidence of bowel obstruction on imaging, or other etiology. Current Visit: Yes Status: Acute Code(s): R11.2 - NAUSEA WITH VOMITING, UNSPECIFIED SNOMED Code(s): 122291077 (2) Zenker's (hypopharyngeal) diverticulum Current Visit: No Status: Acute Code(s): K22.5 - DIVERTICULUM OF ESOPHAGUS, ACQUIRED SNOMED Code(s): 507657362 Plan: 1. Clear liquid diet, nothing by mouth after midnight 2. Supportive care 3. Continue with antiemetics 4. Protonix 40 mg twice a day 5. Patient will be scheduled for EGD tomorrow, procedure discussed with patient in detail including risks and benefits. Patient seemingly understands and ag reeable to proceed. Thank you for this consultation, we will continue to follow I agree with the dictator's note, documented as a scribe by Deena Flores.
[2021-03-20] MEDS: SENNOSIDES 8.6 MG TAB PO SCH (21:00)
[2021-03-21] MEDS: ONDANSETRON 4 MG/2 ML VIAL IVP SCH ×4 (00:39→21:27)
[2021-03-21] MEDS: VENLAFAXINE HCL ER 150 MG CAP PO SCH (09:40)
[2021-03-21] MEDS: HEPARIN SODIUM,PORCINE/PF 5,000 UNIT/0.5 ML SYRINGE SQ SCH ×2 (09:40→21:27)
[2021-03-21] MEDS: amLODIPine 5 MG TAB PO SCH (09:40)
[2021-03-21] MEDS: LOSARTAN 50 MG TAB PO SCH (09:40)
[2021-03-21] MEDS: NYSTATIN 100,000 UNIT/ML SUSP 500,000 UNIT/5 ML CUP PO SCH ×4 (09:41→23:12)
[2021-03-21] MEDS: CALCIUM CARBONATE 500 MG CHEWABLE PO SCH (09:41)
[2021-03-21] MEDS: CHOLECALCIFEROL 25 MCG (1000 IU) TABLET PO SCH (09:41)
[2021-03-21] MEDS: GABAPENTIN 100 MG CAP PO SCH ×3 (09:41→21:27)
[2021-03-21] MEDS: ASCORBIC ACID 500 MG TAB PO SCH (09:41)
[2021-03-21] MEDS: ATORVASTATIN 10 MG TAB PO SCH (09:41)
[2021-03-21] MEDS: PANTOPRAZOLE 40 MG/10 ML VIAL IV SCH ×2 (09:42→21:26)
[2021-03-21] MEDS: NON FORMULARY DRUG (Calcium Carb/Vitamin D3/Vit K1 [Viactiv 650 Mg-12.5 Mcg Chew] 1 EACH T PO SCH (10:00)
[2021-03-21] MEDS ORDERED: LIDOCAINE 1% INJ 10MG/ML (20 ML MDV) ONE (10:04)
[2021-03-21] MEDS ORDERED: PROPOFOL 10 MG/ML 20 ML VIAL IV ONE (10:04)
[2021-03-21] MEDS ORDERED: SODIUM CHLORIDE 0.9% 500 ML 500 ML IV ONE (10:15)
--- NOTE | 2021-03-21 10:28 | P.PCN ---
Date of Procedure: 03/21/21 Description of Procedure: BRIEF HISTORY: 75-year-old female with a medical history significant for hyperlipidemia, was a, hypothyroidism, hypertension, prior Zenker's diverticulum status post repair and prior bowel obstructions who presented to the hospital with complaints of nausea and vomiting. Patient reports that approximately 10-12 days ago she began having intractable episodes of nausea and vomiting. This occurred after she had a cataract surgery. She reports that she has had decreased bowel movements as well as less flatus since that time. She reports last bowel movement was several days ago and that she is passing less gas. She denies any abdominal pain. She reports frequent episodes of nonbloody emesis. She denies any sick contacts or new medications except for eyedrops started after the cataract surgery. No fevers or chills. She has required surgical intervention for bowel obstruction twice in the past. Computed tomography scan on admission and significant for moderate diverticulosis in hepatic cysts with no evidence of bowel obstruction. She also previously underwent myotomy for Zenker diverticulum in 05/2017. Her last colonoscopy was in 07/2017 with polypectomy and diverticulosis noted. PROCEDURE PERFORMED: Esophagogastroduodenoscopy with biopsy. PREOPERATIVE DIAGNOSIS: Intractable nausea and vomiting. ESTIMATED BLOOD LOSS: Minimal. IV sedation per anesthesia. PROCEDURE: After informed consent was obtained, the patient was brought into the endoscopy unit. IV sedation was administered by Anesthesia under continuous monitoring. Initially the Olympus GIF-190 video endoscope was inserted into the mouth. Esophagus intubated without any difficulty. It was gradually advanced into the stomach and duodenum and carefully examined. The bulb and the second part of the duodenum appeared normal, with biopsies taken. There was a benign-appearing duodenal bulb stricture which was able to be traversed with the endoscope. The scope at this time was withdrawn to the stomach, adequately insufflated with air, and upon careful examination, mucosa of the antrum, body, cardia and the fundus appeared normal, except for some mild scattered erythema in the antrum and body suggestive of mild gastritis with biopsies taken. The scope was then withdrawn into the esophagus. The GE junction was located at 36 cm from the incisors, with a 4 cm hiatal hernia noted. There were 2 cm of salmon-colored mucosa suggestive of Matias's esophagus with lower esophageal biopsies taken. The esophagus appeared normal. There were no erosions or ulcerations seen and the patient tolerated the procedure well. IMPRESSION: 1. 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 2. Mild gastritis. 3. Moderate size hiatal hernia. 4. Benign appearing duodenal stricture able to be traversed with the endoscope and not obstructing the lumen. 5. Biopsies of the duodenum, antrum and body and lower esophagus. RECOMMENDATIONS: The findings of this examination were discussed with the patient. Okay for full liquid diet, advance as tolerated. Continue current medical management. Continue Protonix therapy and if Matias's esophagus is confirmed patient should be discharged on daily Protonix therapy with repeat EGD in 2 years.
--- NOTE | 2021-03-21 12:47 | P.PN ---
Subjective Progress Note Date: 03/21/21 Hospital course: Patient is a 75-year-old female with a past medical history including hypertension, hyperlipidemia, obstructive sleep apnea, hypothyroidism and hi story of 2 previous small bowel obstructions. Patient presented to the emergency department with a chief complaint of intractable nausea and vomiting. Patient reports nausea and vomiting began approximately 10 days ago and rapidly worsened over the past week reporting to have 8-10 episodes of vomiting per day. Patient reports in addition to this she has had constipation with last bowel movement being greater than one week ago. CT abdomen and pelvis showing no acute process, revealing moderate colonic diverticulosis without diverticulitis, and hepatic cyst. CT brain negative for acute intracranial abnormality. CBC revealing mild leukocytosis with WBC count 13.1. BMP revealing mildly elevated AST of 37 and ALT of 46. Troponin 0.014. Urinalysis positive for glucose and ketones negative for blood or infection. Patient admitted under our services with consultation to gastroenterology. Patient was taken for EGD on 03/21/[address] Chavarria. Findings reported were mild gastritis with suspected Matias's esophagus with moderate sized hiatal hernia, biopsies were obtained. Physical exam: Patient seen and fully evaluated at the bedside this morning. Patient reports continued significant nausea with 2 episodes of vomiting over the past 24 hours. Patient was taken for EGD this morning by Dr. Chavarria. Findings reported were mild gastritis with suspected Matias's esophagus with moderate sized hiatal hernia. Patient to continue antibiotic and Protonix therapy. Placed on full liquid diet. Patient denies any other complaints including headache, lightheadedness, dizziness, sore throat or dysphasia, chest pain or palpitations, shortness of breath, or experiencing any numbness/tingling/weakness in extremities. General: Non toxic, no distress, appears at stated age Derm: warm, dry Head: atraumatic, normocephalic, symmetric Eyes: EOMI, no lid lag, anicteric sclera Mouth: no lip lesion, mucus membranes moist Cardiovascular: S1S2 reg, no murmur, positive posterior tibial pulses bilaterally, Lungs: CTA bilateral, no rhonchi, no rales , no accessory muscle use Abdominal: Soft, nontender to palpation, no guarding, no appreciable organomegaly Ext: no gross muscle atrophy, no edema, no contractures Neuro: CN II-XI grossly intact, no focal neuro deficits Psych: Alert, oriented, appropriate affect Plan of care: Intractable nausea and vomiting, unclear etiology -CT abdomen and pelvis showing no acute process, revealing moderate colonic diverticulosis without diverticulitis, and hepatic cyst. -KUB revealing incidental 1.5 cm splenic artery aneurysm and mild stool burden with no evidence for free air or bowel obstruction. -GI following and took patient to a wire this morning for EGD. Findings reported were mild gastritis with suspected Matias's esophagus with moderate sized hiatal hernia. -Continue with anti-emetics and Protonix therapy -Full liquid diet Hypertensive urgency, resolved. Hypertension -Monitor vital signs and Continue daily medication regimen. Oral candidiasis -Continue nystatin Hyperlipidemia -Continue daily medication management with simvastatin. Hypothyroidism -Patient to continue daily medication regimen with levothyroxine. Leukocytosis, improving Splenic artery aneurysm 1.5 cm, Incidental finding on imaging -Patient will be referred to vascular surgery upon discharge for long-term monitoring and management on an outpatient basis. CODE STATUS: Full code DVT prophylaxis: Heparin Discussed with: Patient and RN Anticipated discharge date: Clinical course to determine Anticipated discharge place: Home A total of 45 minutes was spent on the care of this complex patient more than 50% of the time was spent in counseling and care coordination. Objective - Vital Signs Vital signs: Vital Signs Temp 98.1 F 03/21/21 07:10 Pulse 66 03/21/21 07:10 Resp 14 03/21/21 07:18 BP 143/82 03/21/21 07:10 Pulse Ox 90 L 03/21/21 07:10 Intake & Output 03/20/21 03/21/21 03/21/21 18:59 06:59 18:59 Intake Total 820 480 200 Balance 820 480 200 Intake: IV 200 Intake, IV Titration 700 Amount Dextrose 5%-0.45% NaCl 1, 700 000 ml @ 100 mls/hr IV . Q10H ROSALINE Rx#:[id number] Oral 120 480 Other: Voiding Method Bedside Commode Bedside Commode # Voids 2 1 - Labs CBC & Chem 7: 03/20/21 07:26 03/20/21 07:26 Labs: Abnormal Lab Results - Last 24 Hours (Table) 03/20/21 Range/Units 07:26 Potassium 3.1 L (3.5-5.5) mmol/L Glucose 115 H (70-110) mg/dL
[2021-03-21] MEDS: polyethylene glycoL 3350 17 GM POWD.PACK PO SCH (14:20)
[2021-03-21] MEDS: LEVOTHYROXINE 75 MCG TAB PO SCH (19:27)
[2021-03-21] MEDS: SENNOSIDES 8.6 MG TAB PO SCH (21:27)
[2021-03-22] MEDS: ONDANSETRON 4 MG/2 ML VIAL IVP SCH ×5 (00:39→23:59)
[2021-03-22] MEDS: LEVOTHYROXINE 75 MCG TAB PO SCH (05:40)
[2021-03-22] MEDS: LOSARTAN 50 MG TAB PO SCH (09:05)
[2021-03-22] MEDS: CHOLECALCIFEROL 25 MCG (1000 IU) TABLET PO SCH (09:05)
[2021-03-22] MEDS: CALCIUM CARBONATE 500 MG CHEWABLE PO SCH (09:05)
[2021-03-22] MEDS: VENLAFAXINE HCL ER 150 MG CAP PO SCH (09:06)
[2021-03-22] MEDS: GABAPENTIN 100 MG CAP PO SCH ×3 (09:06→20:49)
[2021-03-22] MEDS: ATORVASTATIN 10 MG TAB PO SCH (09:06)
[2021-03-22] MEDS: PANTOPRAZOLE 40 MG/10 ML VIAL IV SCH ×2 (09:06→20:48)
[2021-03-22] MEDS: ASCORBIC ACID 500 MG TAB PO SCH (09:06)
[2021-03-22] MEDS: amLODIPine 5 MG TAB PO SCH (09:06)
[2021-03-22] MEDS: HEPARIN SODIUM,PORCINE/PF 5,000 UNIT/0.5 ML SYRINGE SQ SCH (09:07)
[2021-03-22] MEDS: polyethylene glycoL 3350 17 GM POWD.PACK PO SCH (09:07)
[2021-03-22] MEDS: NYSTATIN 100,000 UNIT/ML SUSP 500,000 UNIT/5 ML CUP PO SCH ×4 (09:07→20:49)
[2021-03-22] MEDS: NON FORMULARY DRUG (Calcium Carb/Vitamin D3/Vit K1 [Viactiv 650 Mg-12.5 Mcg Chew] 1 EACH T PO SCH (09:08)
--- NOTE | 2021-03-22 11:48 | CDI ---
Documentation Clarification Form Date: 03/22/2021 11:32:17 AM From: Makenzie Monson CCS, CCDS Admit Date: 03/21/2021 04:09:00 PM Patient Name: Basilia Guerrero Visit Number: [id number] Discharge Date: ATTENTION: The Clinical Documentation Specialists (CDI) and [facility] Coding Staff appreciate your assistance in clarifying documentation. Please respond to the clarification below the line at the bottom and electronically sign. The CDI & [facility] Coding staff will review the response and follow-up if needed. Please note: Queries are made part of the Legal Health Record. If you have any questions, please contact the author of this message via ITS. Dr. Fidencio Khaill: Asthma is documented in the patient's Past Medical History in the 03/18 ED Note, the 03/19 H/P and the 03/19 GI Consult without further specificity. Pulmonary is not consulted. Additional clarification regarding the type of asthma is requested. History/risk factors per the 03/18 ED: Asthma, GERD/Reflux, Hyperlipidemia, Hypertension, Osteoarthritis, Sleep Apnea, Hypothyroid, Bowel Obstructions x2 status post Bowel Resection, Back pain, Father had TB & patient received treatment in 1990, Neuropathy right leg & toes, Unsteady due to Back Pain, Repair of pouch of Esophagus, Anxiety, Depression. Clinical Indicators: Presented to the ED on 03/18 with Intractable Nausea & Vomiting x2 weeks status post Cataract surgery. ED Clinical Impression: Intractable Nausea & Vomiting, Dehydration, Gastroenteritis 03/18 ED VS: T 99.0, P 149, R 24, BP 228/109, PO 95 RA - 98 2Lnc, BMI: 33.5 03/21 VS: T 98.1, P 66 - 74, R 14 - 16, BP 143/82, PO 90 RA - 94 2Lnc 03/18 LAB: WBC 13.1, Hct 48.4, Neut 10.6, VBG pH 7.43, Glucose 139, AST 37, ALT 46 03/18 CT Chest/Abd/Pelvis: Lungs clear of consolidation, Mild interstitial disease. Treatment 03/18: O2 2Lnc, IV Zofran, IV fluid 1,000 mls @ 130 mls/hr q7H, IV fluid 1,000 mls @ 999 mls/hr q1H, IV Trandate, IV Ativan, IV Protonix 03/20: Synthroid 03/21: O2 2Lnc, IV fluid as directed. Home meds include: Venlafaxine, INH Proair Hfa Please clarify the type and severity of asthma, if known: [ ] Extrinsic asthma [ ] without exacerbation [ ] Intrinsic asthma [ ] without exacerbation [ ] Mild intermittent asthma [ ] without exacerbation [ ] Mild persistent asthma [ ] without exacerbation [ ] Moderate persistent asthma [ ] without exacerbation [ ] Other, please specify [ ] Unable to determine (Template Last Revised: December 2020) MTDD
--- NOTE | 2021-03-22 13:23 | P.PN ---
Subjective Progress Note Date: 03/22/21 She feels okay today, no chest pain no abdominal pain no nausea no vomiting. She had some hypoxia overnight but this has resolved. Objective - Vital Signs Vital signs: Vital Signs Temp 97.6 F 03/22/21 07:00 Pulse 64 03/22/21 07:00 Resp 18 03/22/21 07:00 BP 131/72 03/22/21 07:00 Pulse Ox 97 03/22/21 08:38 Intake & Output 03/21/21 03/22/21 03/22/21 18:59 06:59 18:59 Intake Total 200 Balance 200 Intake: IV 200 Other: Voiding Method Bedside Commode # Voids 2 1 # Bowel Movements 0 - Exam Constitutional: No acute distress, conversant, pleasant Eyes: Anicteric sclerae, moist conjunctiva, no lid-lag, PERRLA ENMT: NC/AT,Oropharynx clear Neck:Supple, FROM, no masses, or JVD Lungs: Clear to auscultation, Clear to percussion, Normal respiratory effort, no accessory muscle use Cardiovascular: Heart regular in rate and rhythm, No murmurs, gallops, or rubs no peripheral edema Abdominal: Soft Nontender, non distended, no guarding, no rebound or rigidity, Normoactive bowel sounds Skin: Normal temperature, tone, texture, turgor, No induration No subcutaneous nodules, No rash, lesions, No ulcers Extremities:No digital cyanosis No clubbing, Pedal pulses intact and symmetrical Radial pulses intact and symmetrical Normal gait and station, No calf tenderness Psychiatric: Alert and oriented to person, place and time, Appropriate affect Intact judgement Neuro: Muscles Strength 5/5 in all 4 extremities, Sensation to light touch grossly present throughout, Cranial nerves II-XII grossly intact. No focal sens ory deficits - Labs CBC & Chem 7: 03/20/21 07:26 03/20/21 07:26 Labs: Abnormal Lab Results - Last 24 Hours (Table) 03/22/21 Range/Units 12:44 D-Dimer 1.44 H (<0.60) mg/L FEU Assessment and Plan Plan: Assessment and plan Intractable nausea and vomiting, unclear etiology -CT abdomen and pelvis showing no acute process, revealing moderate colonic diverticulosis without diverticulitis, and hepatic cyst. -KUB revealing incidental 1.5 cm splenic artery aneurysm and mild stool burden with no evidence for free air or bowel obstruction. 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 -Continue with anti-emetics and Protonix therapy Hypertensive urgency, resolved. Hypertension -Monitor vital signs and Continue daily medication regimen. Oral candidiasis -Continue nystatin Hyperlipidemia -Continue daily medication management with simvastatin. Hypothyroidism -Patient to continue daily medication regimen with levothyroxine. Leukocytosis, improving Splenic artery aneurysm 1.5 cm, Incidental finding on imaging -Patient will be referred to vascular surgery upon discharge for long-term monitoring and management on an outpatient basis. Intermittent hypoxia Likely associated with obstructive sleep apnea, and asthma with mild intermittent exacerbation continue to check cardiac enzymes. Elevated d-dimer of unspecified significance Obtain CT chest to rule out pulmonary embolism CODE STATUS: Full code DVT prophylaxis: Heparin Discussed with: Patient and RN Anticipated discharge date: Likely home tomorrow Anticipated discharge place: Home
--- NOTE | 2021-03-22 13:39 | P.PN ---
Subjective Progress Note Date: 03/22/21 Principal diagnosis: Intractable nausea and vomiting Was seen and examined lying in bed. She states the nausea and vomiting has stopped. She states she's feeling better today. She had full liquid diet without any episodes of nausea or vomiting following. She denies any abdominal pain. Yesterday she underwent EGD with findings suspected of Matias's esophagus, mild gastritis, moderate size hiatal hernia, and a benign-appearing duodenal stricture that was able to be traversed with the endoscope and not obstructing the lumen. Biopsies obtained. Objective - Vital Signs Vital signs: Vital Signs Temp 97.6 F 03/22/21 07:00 Pulse 64 03/22/21 07:00 Resp 18 03/22/21 07:00 BP 131/72 03/22/21 07:00 Pulse Ox 97 03/22/21 08:38 Intake & Output 03/21/21 03/22/21 03/22/21 18:59 06:59 18:59 Intake Total 200 Balance 200 Intake: IV 200 Other: Voiding Method Bedside Commode # Voids 2 1 # Bowel Movements 0 - Exam General appearance: The patient is alert, oriented, appears in no acute di stress. HET: Head is normocephalic and atraumatic. Conjunctiva pink. Sclera anicteric. Neck: Supple without lymphadenopathy. Abdomen: Soft, nontender, nondistended with bowel sounds. No guarding or rigidity. Extremities: Normal skin color and turgor. No pedal edema Skin: No rashes, no jaundice Neurological: No focal deficits. Alert and oriented 3. - Labs CBC & Chem 7: 03/20/21 07:26 03/20/21 07:26 Assessment and Plan (1) Intractable nausea and vomiting Narrative/Plan: A 5-year-old female presented to the hospital with intractable nausea and vomiting son to be severely hypertensive which is currently being treated. Patient reports intractable nausea and vomiting since surgery for cataracts approximately 10-14 days ago. She denies any sick contacts, fevers or chills, unusual foods with her for any new medications other than eyedrops for her cataract surgery. She was reporting multiple episodes of nonbloody nonbilious emesis. No prior episodes of similar complaints. 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 Her last colonoscopy was in July 2000 617 significant for polyps and diverticulosis. 2 prior bowel obstructions with surgical intervention, currently she reports passing only small amount of flatus with last bowel movement several days ago. Computed tomography scan of the abdomen showing diverticulosis and hepatic cyst. Unclear etiology, may be related to uncontrolled reflux, controlled hypertension on presentation, with no evidence of bowel obstruction on imaging, or other etiology. 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 Biopsies obtained. Nausea and vomiting improved. Current Visit: Yes Status: Acute Code(s): R11.2 - NAUSEA WITH VOMITING, UNSPECIFIED SNOMED Code(s): 166815723 (2) Zenker's (hypopharyngeal) diverticulum Current Visit: No Status: Acute Code(s): K22.5 - DIVERTICULUM OF ESOPHAGUS, ACQUIRED SNOMED Code(s): 451979233 Plan: 1. Full liquid diet, advance to low fiber diet at dinnertime 2. Supportive care 3. Continue with antiemetics 4. Protonix 40 mg twice a day 5. She is status post EGD, findings discussed with patient and significant other. Patient has follow-up appointment with gastroenterology on 03/29/2021. Patient advised to keep that appointment to review biopsy results. If biopsy results positive for Matias's esophagus patient will need repeat EGD in 2 years Thank you for this consultation, patient is cleared for discharge from gastroenterology. We will sign off at this time I agree with the dictator's note, documented as a scribe by Deena Flores.
--- NOTE | 2021-03-22 14:50 | CT ---
EXAMINATION TYPE: CT chest angio for PE DATE OF EXAM: 03/22/2021 COMPARISON: HISTORY: Hypoxia. CT DLP: 398.9 mGycm Automated exposure control for dose reduction was used. CONTRAST: CT Chest for pulmonary embolism performed with with IV Contrast, patient injected with 100 mL of Isov ue 370. FINDINGS: LUNGS: Coarsened interlobular septal thickening is most typical of chronic interstitial lung disease. There are areas of subsegmental consolidation. Atelectasis favored over pneumonitis. Biapical pleura l thickening. Subpleural 2 mm nodularity is most typical of postinflammatory change but nonspecific. More focal area of consolidation seen in the left lower lobe extending to the left hilum. MEDIASTINUM: There is a filling defect within the secondary and distal branches of the right pulmonar y artery extending the right lower lobe. Report was called to the patient's nurse at 2:42 PM on 021. The heart is enlarged and there is a hiatal hernia. Atherosclerotic change of the aorta but no e vidence of aneurysm. OTHER: Hypertrophic and degenerative changes of the spine. Nonspecific thickening to the left adrena l. Hypodense lesion within the left lobe liver is indeterminate current technique. Suggest previous s plenic artery aneurysm noted measuring 1.2 cm IMPRESSION: 1. Acute pulmonary embolism secondary and distal branches right pulmonary artery extending into the r ight lower lobe. 2. Suspect COPD and chronic interstitial lung disease with areas of subsegmental consolidation. Atele ctasis favored over pneumonitis correlate clinically. 3. More localized area of consolidation extending from the left hilum into the left lower lobe. This most likely is postinflammatory rather than neoplastic but follow-up to resolution recommended. If th e finding fails to resolve then consider PET scan.
--- NOTE | 2021-03-22 15:52 | P.CNPUL ---
History of Present Illness Consult date: 03/22/21 Requesting physician: Fidencio Khalil Chief complaint: Abnormal CT angiogram. History of present illness: Pulmonary consult dated 03/22/2021. 75-year-old female who presented to the emergency department on March 18 complaining of nausea, vomiting, and diarrhea. She apparently been to the emergency room a number of times, and finally got admitted. On this admission, they found Matias's esophagus, acid reflux disease, and gastroenteritis. More recently, her blood work showed an elevated d-dimer. For that reason, CT an giogram was done to rule out pulmonary embolism. The CT angiogram which was done today, showed a filling defect within the secondary and distal branches of the right pulmonary artery extending into the right lower lobe. Interestingly, the patient is actually asymptomatic. She denies any fever, cough, shortness of breath, chest pain, chest pressure, or any other chest symptoms. The patient has been bedridden for the last 5 days since she's been here in the hospital. Prior to that, at home, she has been very active. She is not sedentary and all other than this hospitalization. Her medical problem list includes asthma, acid reflux disease, hyperlipidemia, hypertension, DJD, sleep apnea, and hypothyroidism. She does use CPAP for her sleep apnea syndrome. White count 10.58, he will 14, hematocrit 42.9, platelet count 234,000. D-dimer is 1.44. Sodium 142, potassium 3.1, chlorides 105, CO2 26, anion gap 11, BUN 13, creatinine 0.8. Review of Systems REVIEW OF SYSTEMS: CONSTITUTIONAL: [Negative.] NEUROLOGIC: [ Negative.] HEENT: [ Negative.] CARDIAC: [Negative.] PULMONARY: [Negative.] GI: Nausea, vomiting, diarrhea, all improved. : [Negative.] RHEUMATOLOGIC: [ Negative.] IMMUNOLOGIC: [ Negative.] ENDOCRINE: [Negative. ] DERMATOLOGIC: [Negative.] Past Medical History Past Medical History: Asthma, GERD/Reflux, Hyperlipidemia, Hypertension, Osteoarthritis (OA), Sleep Apnea/CPAP/BIPAP, Thyroid Disorder Additional Past Medical History / Comment(s): C-PAP, HX OF BOWEL OBSTRUCTION X2 WITH SURGERY, BACK PAIN, FATHER HAD TB AND SHE RECEIVED TX IN 1990. NEUROPATHY RIGHT LEG AND TOES, STATES UNSTEADY DUE TO BACK PAIN. History of Any Multi-Drug Resistant Organisms: None Reported Past Surgical History: Bowel Resection, Breast Surgery, Hysterectomy Additional Past Surgical History / Comment(s): Multiple BILATERAL BREAST bx and lumpectomy benign, bowel resection x2, REPAIR OF A POUCH ON THE ESOPHAGUS -RIGHT SIDE OF NECK. PAIN CLINIC PROCEDURES cataracts Past Anesthesia/Blood Transfusion Reactions: Motion Sickness Additional Past Anesthesia/Blood Transfusion Reaction / Comment(s): . Past Psychological History: Anxiety, Depression Smoking Status: Never smoker Past Alcohol Use History: None Reported Past Drug Use History: None Reported - Past Family History Mother Family Medical History: No Reported History Father Family Medical History: Cancer Additional Family Medical History / Comment(s): Prostate cancer at age 82. Medications and Allergies Home Medications Medication Instructions Recorded Confirmed Type Albuterol Sulfate [Proair Hfa] 1 puff INHALATION RT-Q4H PRN 02/15/15 03/19/21 History Cholecalciferol [Vitamin D3 (25 2,000 unit PO DAILY 02/15/15 03/19/21 History Mcg = 1000 Iu)] Levothyroxine Sodium [Synthroid] 75 mcg PO DAILY 02/15/15 03/19/21 History Losartan Potassium 100 mg PO DAILY 02/15/15 03/19/21 History Multivitamins, Thera [Multivitamin 1 tab PO DAILY 02/15/15 03/19/21 History (formulary)] Simvastatin 20 mg PO DAILY 02/15/15 03/19/21 History Venlafaxine HCl [Venlafaxine HCl 150 mg PO DAILY 02/15/15 03/19/21 History ER] Ascorbic Acid [Vitamin C] 1,000 mg PO DAILY 05/16/17 03/19/21 History amLODIPine BESYLATE [Norvasc] 5 mg PO DAILY 05/16/17 03/19/21 History Hydrochlorothiazide 12.5 mg PO DAILY 07/30/17 03/19/21 History [hydroCHLOROthiazide] Calcium Carb/Vitamin D3/Vit K1 1 tab PO DAILY 06/27/20 03/19/21 History [Viactiv Soft Chew Tablet] Gabapentin [Neurontin] 100 mg PO TID 06/27/20 03/19/21 History Calcium Carbonate [Calcium] 600 mg PO DAILY 03/15/21 03/19/21 History Cyclobenzaprine [Flexeril] 10 mg PO TID PRN 03/15/21 03/19/21 History Ibandronate Sodium [Boniva] 150 mg PO QMONTHLY 03/15/21 03/19/21 History Meloxicam [Mobic] 15 mg PO DAILY PRN 03/15/21 03/19/21 History Ofloxacin 0.3% Ophth Soln [Ocuflox 1 drops BOTH EYES TID 03/15/21 03/19/21 History Ophth Soln] Omeprazole [PriLOSEC] 20 mg PO DAILY #10 cap 03/15/21 03/19/21 Rx Ondansetron [Zofran] 4 mg PO Q8H PRN 03/15/21 03/19/21 History Vitamin B Complex 1 cap PO DAILY 03/15/21 03/19/21 History Metoclopramide [Reglan] 5 mg PO DAILY 03/19/21 03/19/21 History Pantoprazole Sodium [Protonix] 40 mg PO BID 30 Days tablet. 03/22/21 Rx Allergies Allergy/AdvReac Type Severity Reaction Status Date / Time No Known Allergies Allergy Verified 03/19/21 08:24 Physical Exam Osteopathic Statement: *. No significant issues noted on an osteopathic structural exam other than those noted in the History and Physical/Consult. Vitals: Vital Signs Temp Pulse Pulse Resp BP Pulse Ox 03/22/21 14:16 97.4 F L 76 19 137/75 92 L 03/22/21 08:38 97 03/22/21 07:00 97.6 F 64 18 131/72 91 L 03/22/21 01:21 72 85 16 03/22/21 00:52 97.9 F 68 16 152/76 94 L 03/21/21 20:35 85 L 03/21/21 20:00 16 03/21/21 19:00 97.7 F 85 24 144/80 91 L Intake and Output 03/22/21 03/22/21 03/22/21 06:59 14:59 22:59 Other: Voiding Method Bedside Commode # Voids 1 1 No acute distress, oriented 3. The patient is afebrile. No respiratory difficulty or distress. HEENT examination is grossly unremarkable. Neck supple. Full range of motion. No adenopathy thyromegaly or neck vein dis tention. Cardiovascular examination reveals regular rhythm rate. S1-S2 normal. No S3 or S4. No discernible murmur noted. Heart rate 76 bpm. Lungs reveal clear breath sounds. Breath sounds are equal bilaterally. No adventitious lung sounds including wheezes rhonchi or crackles. Abdomen soft bowel sounds are heard. No masses or tenderness. Extremities are intact. No cyanosis clubbing or edema. Skin is without rash or lesion. Neurologic examination is brief but nonfocal. Results - Laboratory Findings CBC and BMP: 03/20/21 07:26 03/20/21 07:26 PT/INR, D-dimer PT 10.8 sec (9.0-12.0) 03/18/21 23:36 INR 1.0 (<1.2) 03/18/21 23:36 D-Dimer 1.44 mg/L FEU (<0.60) H 03/22/21 12:44 Abnormal lab findings: Abnormal Labs 03/18/21 03/18/21 03/18/21 23:36 23:36 23:55 WBC 13.1 H Hgb 16.8 H Hct 48.4 H MPV Immature Gran # Neutrophils # 10.6 H D-Dimer VBG pH 7.43 H Potassium Glucose 139 H AST 37 H ALT 46 H Urine Appearance Ur Specific [place] Urine Protein Urine Ketones Urine Blood Urine WBC Urine Bacteria Urine Mucus 03/19/21 03/20/21 03/20/21 01:20 07:26 07:26 WBC 10.58 H Hgb Hct MPV 9.0 L Immature Gran # 0.05 H Neutrophils # D-Dimer VBG pH Potassium 3.1 L Glucose 115 H AST ALT Urine Appearance Cloudy H Ur Specific [place] 1.039 H Urine Protein 1+ H Urine Ketones 2+ H Urine Blood Trace H Urine WBC 9 H Urine Bacteria Few H Urine Mucus Occasional H 03/22/21 12:44 WBC Hgb Hct MPV Immature Gran # Neutrophils # D-Dimer 1.44 H VBG pH Potassium Glucose AST ALT Urine Appearance Ur Specific [place] Urine Protein Urine Ketones Urine Blood Urine WBC Urine Bacteria Urine Mucus - Diagnostic Findings Chest x-ray: image reviewed CT scan - chest: image reviewed Assessment and Plan Assessment: Right-sided pulmonary embolism, in a patient who is completely asymptomatic. Blood clots are probably provoked by her inactivity and sedentary situation currently. Nausea, vomiting, and diarrhea, thought related of Matias's esophagus, hiatal hernia, acid reflux disease, and gastroenteritis. History of hypothyroidism. History of hypertension. History of mild asthma, inactive. Gastroesophageal reflux disease. Hyperlipidemia. Osteoarthritis. History of sleep apnea syndrome, currently on CPAP. Plan: Plan dated 03/22/2021. The patient can be started on a factor X a inhibitor right away. The patient should be treated for similar between 3-6 months. If we feel like is a provoked clot secondary to inactivity and laying in bed for the last 5 days, she can be treated for 3 months. If her not convinced that that was her trigger, she should be treated for a longer. At time. She does not need treatment greater than 6 months. In addition, in about 10-12 weeks, she should have a follow-up computed tomography scan, to make sure that the clots are not present any longer. I told her that it was her fibrinolytic system which was responsive for dissolving the clot, and the blood thinner only will prevent new clots from forming, and the clot is currently present, from getting any larger. Time with Patient: Greater than 30
[2021-03-22] MEDS: APIXABAN 5 MG TAB PO SCH (16:30)
[2021-03-22] MEDS: SENNOSIDES 8.6 MG TAB PO SCH (20:49)
[2021-03-22] MEDS ORDERED: ENOXAPARIN 100 MG/ML SYRINGE SQ SCH (21:00)
[2021-03-23] MEDS: LEVOTHYROXINE 75 MCG TAB PO SCH (05:31)
[2021-03-23] MEDS: ONDANSETRON 4 MG/2 ML VIAL IVP SCH (05:31)
[2021-03-23 07:57] VITALS: BP 152/80; PULSE 69; RESP 16; TEMP 97.6
[2021-03-23] MEDS: ASCORBIC ACID 500 MG TAB PO SCH (09:07)
[2021-03-23] MEDS: LOSARTAN 50 MG TAB PO SCH (09:08)
[2021-03-23] MEDS: CALCIUM CARBONATE 500 MG CHEWABLE PO SCH (09:08)
[2021-03-23] MEDS: APIXABAN 5 MG TAB PO SCH (09:08)
[2021-03-23] MEDS: GABAPENTIN 100 MG CAP PO SCH (09:08)
[2021-03-23] MEDS: CHOLECALCIFEROL 25 MCG (1000 IU) TABLET PO SCH (09:08)
[2021-03-23] MEDS: ATORVASTATIN 10 MG TAB PO SCH (09:08)
[2021-03-23] MEDS: amLODIPine 5 MG TAB PO SCH (09:09)
[2021-03-23] MEDS: polyethylene glycoL 3350 17 GM POWD.PACK PO SCH (09:09)
[2021-03-23] MEDS: PANTOPRAZOLE 40 MG/10 ML VIAL IV SCH (09:09)
[2021-03-23] MEDS: POTASSIUM CHLORIDE ER 20 MEQ TAB.ER PO SCH ×2 (09:09→11:33)
[2021-03-23] MEDS: NYSTATIN 100,000 UNIT/ML SUSP 500,000 UNIT/5 ML CUP PO SCH (09:10)
[2021-03-23] MEDS: NON FORMULARY DRUG (Calcium Carb/Vitamin D3/Vit K1 [Viactiv 650 Mg-12.5 Mcg Chew] 1 EACH T PO SCH (09:11)
[2021-03-23] MEDS: VENLAFAXINE HCL ER 150 MG CAP PO SCH (09:11)
--- NOTE | 2021-03-23 09:20 | P.DS ---
Providers Date of admission: 03/21/21 16:09 Expected date of discharge: 03/23/21 Attending physician: Fidencio Khalil MD Consults: 03/19/21 05:16 Consult Physician Urgent Consulting Provider: Diana Bonilla Consult Reason/Comments: n/v Do you want consulting provider notified?: Yes, Notify in am 03/22/21 15:06 Consult Physician Urgent Consulting Provider: Savannah Mcfarlane Consult Reason/Comments: acute PE Do you want consulting provider notified?: Yes Primary care physician: Wendie Mondragon MD Hospital Course: HPI Patient is a 75-year-old female with a PMH of hypertension, hyperlipidemia, obstructive sleep apnea, hypothyroidism, and history of 2 bowel obstructions with subsequent resection who presented to the emergency room with complaints of intractable nausea and vomiting. The patient reports that her symptoms initially started 12 days ago and have gradually worsened and that she has been having 8-10 nonbloody episodes of vomiting daily for the past few days. She reports having gone to the emergency room multiple times and being discharged home and time with little relief. She denied abdominal pain but did note that she feels sore from her dry heaving. Denied diarrhea, chest discomfort, shortness of breath, cough, fever, chills. Also denied headache, urinary complaints, weakness, numbness, tingling, headaches, visual disturbances. Patient underwent an extensive evaluation in the emergency room which was all reviewed. Vital signs upon presentation were BP 220/109, pulse 149, temp 99.0, and SpO2 95% on room air. CT abdomen and pelvis without contrast revealed moderate colonic diverticulosis without diverticulitis along with a hepatic cyst with no acute intra-abdominal pathology noted. A brain CT revealed cerebral atrophy but was otherwise unremarkable. EKG revealed sinus tachycardia at 106 bpm with T-wave flattening in leads V2, V3, and III. laboratory evaluation was remarkable for leukocytosis of 13.1, hemoglobin 16.8, lactic acid 1.6, glucose 139, AST 37, ALT 46, troponin 0.014. Hospital course and treatment: Patient was admitted to the hospital with intractable nausea and vomiting. CT chest abdomen pelvis showing no acute process, revealing moderate colonic diverticulosis without diverticulitis, and hepatic cyst. -KUB revealing incidental 1.5 cm splenic artery aneurysm and mild stool burden with no evidence for free air or bowel obstruction. She was evaluated by GI and underwent an EGD which was consistent with mild gastritis with suspected Matias's esophagus with moderate sized hiatal hernia. She was started on Protonix. She had transient hypoxia, cardiac enzymes are negative, d-dimer was elevated. CT chest was consistent with acute pulmonary embolism without evidence of cor pulmonale. 2-D echo was requested. Patient was evaluated by pulmonology. She was started on Eliquis. She remained hemodynamically stable. She was cleared for discharge by pulmonology. She will be discharged home on Protonix and Eliquis. She was treated with oral nystatin for oral candidiasis. She'll follow up as an outpatient. Diagnoses upon discharge: 1. Acute pulmonary embolism without evidence of cor pulmonale 2. Gastritis, likely chronic 3. Matias's esophagus 4. Oral candidiasis neck/5. Hyperlipidemia 6. Hypothyroidism 7. Mild leukocytosis reactive 8. Asthma with mild exacerbation 9. Obstructive sleep apnea on CPAP 10. Nausea and vomiting Patient Condition at Discharge: Stable Plan - Discharge Summary Discharge Rx Participant: No New Discharge Prescriptions: New Apixaban [Eliquis] 5 mg PO BID 36 Days #84 tab Pantoprazole Sodium [Protonix] 40 mg PO BID 30 Days tablet. Apixaban [Eliquis] 10 mg PO BID tab Continue Cholecalciferol [Vitamin D3 (25 Mcg = 1000 Iu)] 2,000 unit PO DAILY Albuterol Sulfate [Proair Hfa] 1 puff INHALATION RT-Q4H PRN PRN Reason: Shortness Of Breath Simvastatin 20 mg PO DAILY Losartan Potassium 100 mg PO DAILY Levothyroxine Sodium [Synthroid] 75 mcg PO DAILY Venlafaxine HCl [Venlafaxine HCl ER] 150 mg PO DAILY Multivitamins, Thera [Multivitamin (formulary)] 1 tab PO DAILY Ascorbic Acid [Vitamin C] 1,000 mg PO DAILY amLODIPine BESYLATE [Norvasc] 5 mg PO DAILY Hydrochlorothiazide [hydroCHLOROthiazide] 12.5 mg PO DAILY Gabapentin [Neurontin] 100 mg PO TID Calcium Carb/Vitamin D3/Vit K1 [Viactiv 650 mg-12.5 Mcg Chew] 1 tab PO DAILY Ondansetron [Zofran] 4 mg PO Q8H PRN PRN Reason: Nausea Meloxicam [Mobic] 15 mg PO DAILY PRN PRN Reason: Pain Ibandronate Sodium [Boniva] 150 mg PO QMONTHLY Cyclobenzaprine [Flexeril] 10 mg PO TID PRN PRN Reason: Muscle Spasm Omeprazole [PriLOSEC] 20 mg PO DAILY #10 cap Vitamin B Complex 1 cap PO DAILY Ofloxacin 0.3% Ophth Soln [Ocuflox Ophth Soln] 1 drops BOTH EYES TID Calcium Carbonate [Calcium] 600 mg PO DAILY Metoclopramide [Reglan] 5 mg PO DAILY Discharge Medication List Albuterol Sulfate [Proair Hfa] 1 puff INHALATION RT-Q4H PRN 02/15/15 [History] Cholecalciferol [Vitamin D3 (25 Mcg = 1000 Iu)] 2,000 unit PO DAILY 02/15/15 [History] Levothyroxine Sodium [Synthroid] 75 mcg PO DAILY 02/15/15 [History] Losartan Potassium 100 mg PO DAILY 02/15/15 [History] Multivitamins, Thera [Multivitamin (formulary)] 1 tab PO DAILY 02/15/15 [History] Simvastatin 20 mg PO DAILY 02/15/15 [History] Venlafaxine HCl [Venlafaxine HCl ER] 150 mg PO DAILY 02/15/15 [History] Ascorbic Acid [Vitamin C] 1,000 mg PO DAILY 05/16/17 [History] amLODIPine BESYLATE [Norvasc] 5 mg PO DAILY 05/16/17 [History] Hydrochlorothiazide [hydroCHLOROthiazide] 12.5 mg PO DAILY 07/30/17 [History] Calcium Carb/Vitamin D3/Vit K1 [Viactiv 650 mg-12.5 Mcg Chew] 1 tab PO DAILY 06/27/20 [History] Gabapentin [Neurontin] 100 mg PO TID 06/27/20 [History] Calcium Carbonate [Calcium] 600 mg PO DAILY 03/15/21 [History] Cyclobenzaprine [Flexeril] 10 mg PO TID PRN 03/15/21 [History] Ibandronate Sodium [Boniva] 150 mg PO QMONTHLY 03/15/21 [History] Meloxicam [Mobic] 15 mg PO DAILY PRN 03/15/21 [History] Ofloxacin 0.3% Ophth Soln [Ocuflox Ophth Soln] 1 drops BOTH EYES TID 03/15/21 [History] Omeprazole [PriLOSEC] 20 mg PO DAILY #10 cap 03/15/21 [Rx] Ondansetron [Zofran] 4 mg PO Q8H PRN 03/15/21 [History] Vitamin B Complex 1 cap PO DAILY 03/15/21 [History] Metoclopramide [Reglan] 5 mg PO DAILY 03/19/21 [History] Apixaban [Eliquis] 5 mg PO BID 36 Days #84 tab 03/22/21 [Rx] Pantoprazole Sodium [Protonix] 40 mg PO BID 30 Days tablet. 03/22/21 [Rx] Apixaban [Eliquis] 10 mg PO BID tab 03/23/21 [Rx] Follow up Appointment(s)/Referral(s): [facility] [REFERRING] - 1 Week Wendie Mondragon MD [Primary Care Provider] - 1-2 days Discharge Disposition: HOME SELF-CARE
--- NOTE | 2021-03-23 11:15 | P.PN ---
Subjective Progress Note Date: 03/23/21 Principal diagnosis: Right-sided pulmonary embolism 75-year-old female who presented to the emergency department on March 18 complaining of nausea, vomiting, and diarrhea. She apparently been to the emergency room a number of times, and finally got admitted. On this admission, they found Matias's esophagus, acid reflux disease, and gastroenteritis. More recently, her blood work showed an elevated d-dimer. For that reason, CT angiogram was done to rule out pulmonary embolism. The CT angiogram which was done today, showed a filling defect within the secondary and distal branches of the right pulmonary artery extending into the right lower lobe. Interestingly, the patient is actually asymptomatic. She denies any fever, cough, shortness of breath, chest pain, chest pressure, or any other chest symptoms. The patient has been bedridden for the last 5 days since she's been here in the hospital. Prior to that, at home, she has been very active. She is not sedentary and all other than this hospitalization. Her medical problem list includes asthma, acid reflux disease, hyperlipidemia, hypertension, DJD, sleep apnea, and hypothyroidism. She does use CPAP for her sleep apnea syndrome. White count 10.58, he will 14, hematocrit 42.9, platelet count 234,000. D-dimer is 1.44. Sodium 142, potassium 3.1, chlorides 105, CO2 26, anion gap 11, BUN 13, creatinine 0.8. On 03/23/2021 patient seen in follow-up. She is awake and alert, oriented 3, sitting up in the chair, on room air, pulse ox is 95%, she did wear her CPAP last night. Breathing comfortably today, no chest pain, no hemoptysis, she has been transitioned to oral anticoagulation in the form of Eliquis. She's had no acute events overnight Objective - Vital Signs Vital signs: Vital Signs Temp 97.6 F 03/23/21 07:00 Pulse 69 03/23/21 07:00 Resp 16 03/23/21 07:00 BP 152/80 03/23/21 07:00 Pulse Ox 95 03/23/21 07:00 Intake & Output 03/22/21 03/23/21 03/23/21 18:59 06:59 18:59 Other: Voiding Method Bedside Commode Bedside Commode # Voids 1 2 1 # Bowel Movements 1 - Exam GENERAL EXAM: Alert, very pleasant, 75-year-old white female, on room air pulse ox of 95% comfortable in no apparent distress. HEAD: Normocephalic/atraumatic. EYES: Normal reaction of pupils, equal size. Conjunctiva pink, sclera white. NOSE: Clear with pink turbinates. THROAT: No erythema or exudates. NECK: No masses, no JVD, no thyroid enlargement, no adenopathy. CHEST: No chest wall deformity. Symmetrical expansion. LUNGS: Equal air entry with no crackles, wheeze, rhonchi or dullness. CVS: Regular rate and rhythm, normal S1 and S2, no gallops, no murmurs, no rubs ABDOMEN: Soft, nontender. No hepatosplenomegaly, normal bowel sounds, no guarding or rigidity. EXTREMITIES: No clubbing, no edema, no cyanosis, 2+ pulses and upper and lower extremities. MUSCULOSKELETAL: Muscle strength and tone normal. SPINE: No scoliosis or deformity SKIN: No rashes CENTRAL NERVOUS SYSTEM: Alert and oriented -3. No focal deficits, tone is normal in all 4 extremities. PSYCHIATRIC: Alert and oriented -3. Appropriate affect. Intact judgment and insight. - Labs CBC & Chem 7: 03/20/21 07:26 03/20/21 07:26 Labs: Abnormal Lab Results - Last 24 Hours (Table) 03/22/21 Range/Units 12:44 D-Dimer 1.44 H (<0.60) mg/L FEU Assessment and Plan Plan: Assessment: Right-sided pulmonary embolism, in a patient who is completely asymptomatic. Blood clots are probably provoked by her inactivity and sedentary situation currently. Nausea, vomiting, and diarrhea, thought related of Matias's esophagus, hiatal hernia, acid reflux disease, and gastroenteritis. History of hypothyroidism. History of hypertension. History of mild asthma, inactive. Gastroesophageal reflux disease. Hyperlipidemia. Osteoarthritis. History of sleep apnea syndrome, currently on CPAP. Plan: Patient has been started on oral anticoagulation Hemodynamically stable No worsening dyspnea She is on room air From pulmonary perspective she could be considered for discharge if cleared by medicine Follow-up with Dr. Nesbitt in the office in 3 weeks I performed a history & physical examination of the patient and discussed their management with my nurse practitioner, Radha Pérez. I reviewed the nurse practitioner's note and agree with the documented findings and plan of care. Lung sounds are positive for dim breath sounds The findings and the impression was discussed with the patient. I attest to the documentation by the nurse practitioner. Time with Patient: Less than 30
[2021-03-23 11:48] LABS: Basophils # (A) 0.06 X 10*3/uL (0.00-0.10); Basophils % (A) 0.9 %; Eosinophils # (A) 0.27 X 10*3/uL (0.04-0.35); Eosinophils % (A) 4.2 %; HCT 39.8 % (37.2-46.3); HGB 13.2 g/dL (12.0-15.0); Lymphocytes # (A) 1.72 X 10*3/uL (0.90-5.00); Lymphocytes % (A) 26.6 %; MCH 31.5 pg (27.0-32.0); MCHC 33.2 g/dL (32.0-37.0); Mean Platelet Volume 9.4 fL (9.5-12.2); Monocytes # (A) 0.59 X 10*3/uL (0.20-1.00); Monocytes % (A) 9.1 %; Neutrophils # (A) 3.79 X 10*3/uL (1.80-7.70); Neutrophils % (A) 58.7 %; Platelet Count 212 X 10*3/uL (140-440); RBC 4.19 X 10*6/uL (4.10-5.20); RDW 13.1 % (11.5-14.5); WBC 6.46 X 10*3/uL (4.50-10.00)
--- NOTE | 2021-03-23 12:00 | ECHOF ---
Referral Reason:Acute pulmonary embolism MEASUREMENTS -------- HEIGHT: 162.6 cm WEIGHT: 88.5 kg BP: RVIDd: 2.9 cm (< 3.3) IVSd: 1.7 cm (0.6 - 1.1) LVIDd: 3.8 cm (3.9 - 5.3) LVPWd: 1.4 cm (0.6 - 1.1) IVSs: 1.8 cm LVIDs: 2.3 cm LVPWs: 1.8 cm LA Diam: 3.2 cm (2.7 - 3.8) Ao Diam: 3.2 cm (2.0 - 3.7) AV Cusp: 2.0 cm (1.5 - 2.6) MV EXCURSION: 12.685 mm (> 18.000) MV EF SLOPE: 66 mm/s (70 - 150) EPSS: 0.2 cm MV E Sylvester: 0.42 m/s MV DecT: 255 ms MV A Sylvester: 0.82 m/s MV E/A Ratio: 0.51 RAP: 5.00 mmHg RVSP: 32.83 mmHg FINDINGS -------- Sinus rhythm. This was a technically difficult study with suboptimal views. The left ventricular size is normal. There is moderate concentric left ventricular hypertrophy. O verall left ventricular systolic function is normal with, an EF between 55 - 60 %. The right ventricle is normal in size. The left atrial size is normal. The right atrial size is normal. 5.0mg of Lumason was utilized for enhancement of images Interatrial and interventricular septum intact. There is no evidence of aortic regurgitation. There is no evidence of aortic stenosis. No mitral regurgitation. Mild tricuspid regurgitation present. There is borderline pulmonary artery hypertension. The righ t ventricular systolic pressure, as measured by Doppler, is 32.83mmHg. There is no pulmonic regurgitation present. The aortic root size is normal. IVC Not well visulized. There is a trivial pericardial effusion present. CONCLUSIONS -------- 1. The left ventricular size is normal. 2. There is moderate concentric left ventricular hypertrophy. 3. Overall left ventricular systolic function is normal with, an EF between 55 - 60 %. 4. Mild tricuspid regurgitation present. 5. There is borderline pulmonary artery hypertension. 6. The right ventricular systolic pressure, as measured by Doppler, is 32.83mmHg. 7. There is a trivial pericardial effusion present. MOVIE PROJECTIONIST: Anu West RDCS
[2021-03-23 14:34] LABS: African American GFR (CKD) 96.9 (60.0-200.0); Albumin 3.7 g/dL (3.80-4.90); Albumin/Globulin Ratio 1.95 (1.60-3.17); Anion Gap 8.1 mmol/L (4.00-12.00); BUN/Creat Ratio 14.29 Ratio (12.00-20.00); Calcium 8.6 mg/dL (8.7-10.3); Carbon Dioxide 26.9 mmol/L (21.6-31.8); Globulin 1.9 g/dL (1.6-3.3); Non-African American GFR(CKD) 83.6 (60.0-200.0); Potassium 3.2 mmol/L (3.5-5.5); Total Bilirubin 0.3 mg/dL (0.3-1.2); Total Protein 5.6 g/dL (6.2-8.2)
== END 2021-03-23 13:37 | disposition home or self-care (01) | DRG 391 ==
LOC: EC 20:33 → 6NMEDSUR 03-19 01:35 → OBSVTOIN 03-21 16:09
PROVIDERS: ADMIT Internal Medicine; ATTEND Internal Medicine
PROC: 0DB68ZX Excision of Stomach, Via Natural or Artificial Opening Endoscopic, Diagnostic (ICD-10-PCS; principal; 2021-03-21 07:30)
PROC: 0DB98ZX Excision of Duodenum, Via Natural or Artificial Opening Endoscopic, Diagnostic (ICD-10-PCS; principal; 2021-03-21 07:30)
PROC: 0DB78ZX Excision of Stomach, Pylorus, Via Natural or Artificial Opening Endoscopic, Diagnostic (ICD-10-PCS; principal; 2021-03-21 07:30)
PROC: 0DB38ZX Excision of Lower Esophagus, Via Natural or Artificial Opening Endoscopic, Diagnostic (ICD-10-PCS; principal; 2021-03-21 07:30)
DX: K52.9 Noninfective gastroenteritis and colitis, unspecified (principal); I26.99 Other pulmonary embolism without acute cor pulmonale; B37.0 Candidal stomatitis; K31.5 Obstruction of duodenum; J45.21 Mild intermittent asthma with (acute) exacerbation; K22.70 Barrett's esophagus without dysplasia; E03.9 Hypothyroidism, unspecified; E78.5 Hyperlipidemia, unspecified; E86.0 Dehydration; F32.9 Major depressive disorder, single episode, unspecified; F41.9 Anxiety disorder, unspecified; G47.33 Obstructive sleep apnea (adult) (pediatric); Z98.49 Cataract extraction status, unspecified eye; I10 Essential (primary) hypertension; I16.0 Hypertensive urgency; I72.8 Aneurysm of other specified arteries; K21.9 Gastro-esophageal reflux disease without esophagitis; K22.5 Diverticulum of esophagus, acquired; K29.70 Gastritis, unspecified, without bleeding; K44.9 Diaphragmatic hernia without obstruction or gangrene; Z20.822 Contact with and (suspected) exposure to COVID-19; K57.30 Diverticulosis of large intestine without perforation or abscess without bleeding; K76.89 Other specified diseases of liver; R26.81 Unsteadiness on feet; M19.90 Unspecified osteoarthritis, unspecified site; M54.9 Dorsalgia, unspecified; R09.02 Hypoxemia; Z72.3 Lack of physical exercise; Z79.1 Long term (current) use of non-steroidal anti-inflammatories (NSAID); Z79.890 Hormone replacement therapy; Z79.899 Other long term (current) drug therapy; Z90.710 Acquired absence of both cervix and uterus; Z83.6 Family history of other diseases of the respiratory system; Z99.89 Dependence on other enabling machines and devices; Z80.42 Family history of malignant neoplasm of prostate; Z90.49 Acquired absence of other specified parts of digestive tract
CPT/HCPCS: 36415; 43239; 70450; 71260; 71275; 74019; 74177; 80048; 80053; 81001; 82550; 82803; 83605; 83735; 84100; 84484; 85025; 85379; 85610; 85730; 87635; 88305; 93005; 93306; 94660; 94760; 96361; 96374; 96375; 99285

== ENCOUNTER → 2021-04-21 | Outpatient (CLI) | payer MEDICARE ==
--- NOTE | 2021-04-25 09:01 | MM ---
Reason for exam: screening (asymptomatic). Last mammogram was performed 1 year ago. History: Patient is postmenopausal and is nulliparous. Benign US left CoreBiopsy of the left breast, January 16, 2006. 4 cyst aspirations of the left breast. 4 cyst aspirations of the right breast. 2 excisional biopsies of the left breast. 2 excisional biopsies of the right breast. Took estrogen for 13 years beginning at age 46. Physical Findings: A clinical breast exam by your physician is recommended on an annual basis and results should be correlated with mammographic findings. MG 3D Screening Mammo W/Cad Bilateral CC and MLO view(s) were taken. Prior study comparison: April 20, 2020, bilateral MG 3d screening mammo w/cad. September 17, 2018, bilateral MG 3d screening mammo w/cad. The breast tissue is heterogeneously dense. This may lower the sensitivity of mammography. Left MLO is again limited due to decreased range of motion. ASSESSMENT: Negative, BI-RAD 1 RECOMMENDATION: Routine screening mammogram of both breasts in 1 year.
== END | disposition home or self-care (01) ==
LOC: RADMAMWWP 10:04
PROVIDERS: ATTEND Family Medicine
DX: Z12.31 Encounter for screening mammogram for malignant neoplasm of breast (principal); Z78.0 Asymptomatic menopausal state; Z79.818 Long term (current) use of other agents affecting estrogen receptors and estrogen levels
CPT/HCPCS: 77063; 77067

== ENCOUNTER 2021-05-19 15:01 | Outpatient (CLI) | payer MEDICARE ==
[~2021-05-19 15:01] MED LIST changes: -LACTATED RINGERS 1,000 ML IV SCH; +SODIUM CHLORIDE 0.9% 500 ML 500 ML in EMPTY BAG 1 BAG IV PRN
[2021-05-19 15:28] VITALS: BP 159/85; PULSE 79; RESP 20; TEMP 98.3
[2021-05-19] MEDS: DEXTROSE 5%-0.9% NACL 1,000 ML IV NR ×2 (15:37→16:45)
== END 2021-05-19 18:17 | disposition home or self-care (01) ==
LOC: PROCWHC3 15:01
PROVIDERS: ATTEND Family Medicine
DX: R11.2 Nausea with vomiting, unspecified (principal)
CPT/HCPCS: 96360; 96361

== ENCOUNTER → 2021-05-31 | Outpatient (CLI) | payer MEDICARE ==
[2021-05-31 17:35] LABS: African American GFR (CKD) >90 (>60 ml/min/1.73 sqM); Blood Urea Nitrogen 14 mg/dL (7-17); Non-African American GFR(CKD) 87 (>60 ml/min/1.73 sqM)
--- NOTE | 2021-05-31 21:36 | CT ---
EXAMINATION TYPE: CT angio chest DATE OF EXAM: 05/31/2021 6:13 PM COMPARISON: CT chest 06/03/2019 HISTORY: PE CT DLP: 651 mGycm Automated exposure control for dose reduction was used. CONTRAST: CTA scan of the thorax is performed with IV Contrast, patient injected with 80 mL of Isovue 370, pulm onary embolism protocol. FINDINGS: LUNGS: The lungs are grossly clear, there is no concerning parenchymal mass or nodule identified. Mo saic attenuation of the lungs are clear and the basis of air trapping. There is no pleural effusion o r pneumothorax seen. The tracheobronchial tree is patent. MEDIASTINUM: There is satisfactory enhancement of the pulmonary artery and its branches, there is no CT evidence for pulmonary embolism. There are no greater than 1 cm hilar or mediastinal lymph nodes. No pericardial effusion is seen. Small hiatal hernia and debris in the distal esophagus. Ascending aorta measures 3.5 cm axially. OTHER: Hepatic steatosis. 2cm hypodense fluid attenuation structure in the left lobe of the liver li al represents a cyst. IMPRESSION: No pulmonary embolism.
== END | disposition home or self-care (01) ==
LOC: RADCTMAIN 16:12
PROVIDERS: ATTEND Internal Medicine Critical Care Medicine
DX: I26.99 Other pulmonary embolism without acute cor pulmonale (principal)
CPT/HCPCS: 82565; 84520; 71275; 36415; Q9967

== ENCOUNTER → 2022-04-23 | Outpatient (CLI) | payer MEDICARE ==
--- NOTE | 2022-04-24 08:04 | MM ---
Reason for Exam: Screening (asymptomatic). Last screening mammogram was performed 12 month(s) ago. Patient History: Menarche at age 11. Patient has no children. Left ovary removed at age 46. Right ovary removed at age 46. Hysterectomy at age 46. Postmenopausal. Estrogen, starting at age 46 for 13 years. Cyst Aspiration on the Right side. Cyst Aspiration on the Right side. Cyst Aspiration on the Right side. Cyst Aspiration on the Right side. Cyst Aspiration on the Left side. Cyst Aspiration on the Left side. Cyst Aspiration on the Left side. Cyst Aspiration on the Left side. Excisional Biopsy on the Right side. Excisional Biopsy on the Right side. Excisional Biopsy on the Left side. Excisional Biopsy on the Left side. 01/16/2006, Benign Core Biopsy on the left side. Risk Values: Shannan 5 year model risk: 2.9%. NCI Lifetime model risk: 5.1%. Prior Study Comparison: 04/20/2020 Bilateral Screening Mammogram, [facility]. 04/27/2020 Left Diagnostic Mammogram, [facility]. 04/21/2021 Bilateral Screening Mammogram, [facility]. Tissue Density: The breast tissue is heterogeneously dense. This may lower the sensitivity of mammography. Findings: Analyzed By CAD. There is no suspicious group of microcalcifications or new suspicious mass in either breast. Stable benign calcifications noted bilaterally. Overall Assessment: Benign, BI-RAD 2 Management: Screening Mammogram of both breasts in 1 year. A clinical breast exam by your physician is recommended on an annual basis and results should be correlated with mammographic findings. Electronically signed and approved by: Chuck Hoover M.D. Radiologis
== END | disposition home or self-care (01) ==
LOC: RADMAMWWP 10:45
PROVIDERS: ATTEND Family Medicine
DX: Z12.31 Encounter for screening mammogram for malignant neoplasm of breast (principal); R92.1 Mammographic calcification found on diagnostic imaging of breast; Z78.0 Asymptomatic menopausal state
CPT/HCPCS: 77063; 77067

== ENCOUNTER → 2024-02-07 | Outpatient (CLI) | payer MEDICARE ==
--- NOTE | 2024-02-09 17:30 | MR ---
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 IV Contrast: None. FINDINGS: Alignment: There is mild scoliosis with the thoracic spine. Cord: High T2 signal lesion with in the spinal cord at the level of the conus medullaris at T11-T12 d isc space measuring 21 x 8 x 7 mm (CC, AP, TV) which is slightly eccentric to the right. Mild expansi on of cord may also be present. The remainder of the spinal cord appear unremarkable with regards to their signal intensity and morphology. Bones/Discs: Multilevel degeneration changes throughout spine with osteophyte formation disc space na rrowing and facet joint arthropathy. Findings worse at L5-S1 with some ankylosis of L5 and S1 vertebr al bodies. High T1/high T2 signal T12 superior endplate focal fatty marrow versus hemangioma. THORACIC: No evidence significant spinal canal or neural foraminal stenosis. Spinal cord is within no rmal limits. Scattered mild neural foraminal stenosis throughout the thoracic spine. LUMBAR: T12-L1: No evidence of significant spinal canal stenosis or neural foraminal stenosis. L1-L2: No evidence of significant spinal canal stenosis. Facet joint arthropathy mild bilateral neura l foraminal stenosis. L2-L3: No evidence of significant spinal canal stenosis. Facet joint arthropathy mild bilateral neura l foraminal stenosis. L3-L4: No evidence of significant spinal canal stenosis. Facet joint arthropathy mild bilateral neura l foraminal stenosis. L4-L5: No evidence of significant spinal canal stenosis. Facet joint arthropathy mild bilateral neura l foraminal stenosis. L5-S1: The disc is rounded posterior morphology without significant spinal canal stenosis. Facet join t arthropathy with mild neural foraminal stenosis. Other findings: Perineural cysts at the level of S2 on the left measuring up to 12 mm. Scattered col onic diverticula are present. IMPRESSION: 1. Intradural intramedullary lesion in the conus medullary is at the level of T11-T12 disc space francisco suring up to 21 x 8 x 7 mm favored represent benign cyst of the medullary conus versus ventriculitis terminalis. Follow-up MRI lumbar spine one year recommended to ensure stability. 2. No definitive evidence of disc herniation or significant spinal canal stenosis within the thoracic or lumbar spine. 3. Mild disc degeneration with associated osteoarthritic changes with scoliosis changes and mild mul tilevel neural foraminal stenosis.
== END | disposition home or self-care (01) ==
LOC: RADMRIMAIN 17:13
PROVIDERS: ATTEND Orthopaedic Surgery Orthopaedic Surgery of the Spine
DX: M47.816 Spondylosis without myelopathy or radiculopathy, lumbar region (principal); M47.814 Spondylosis without myelopathy or radiculopathy, thoracic region; M99.73 Connective tissue and disc stenosis of intervertebral foramina of lumbar region; M99.72 Connective tissue and disc stenosis of intervertebral foramina of thoracic region
CPT/HCPCS: 72146; 72148

== ENCOUNTER → 2024-06-02 | Outpatient (CLI) | payer MEDICARE ==
--- NOTE | 2024-06-23 11:15 | MR ---
Lisa Guerrerolyn ID: [id number] : 1945 EXAMINATION TYPE: MR brain wo con DATE OF EXAM: 06/02/2024 COMPARISON: Correlation CT 03/18/2021 HISTORY: 78-year-old female loss of balance TECHNIQUE: Multiplanar, multisequence images of the brain and brainstem were acquired without IV con trast. Diffusion weighted imaging is performed. FINDINGS: No evidence for acute infarction, hemorrhage, mass, mass effect, midline shift, herniation, effacemen t of basal cisterns, or extra-axial fluid collection. There is moderate volume loss overlying the bilateral cerebral densities. No hydrocephalus. Benign hy perostosis frontalis interna noted. T2/FLAIR weighted sequences show moderate patchy and scattered right white matter change within the p eriventricular deep white matter regions of both cerebral hemispheres. Major intracranial flow voids are intact. Midline structures demonstrate normal morphology. The craniocervical junction is normal. The cerebel lopontine angles appear clear. There is moderate opacification left ethmoid air cells. Mild within the right ethmoid air cells. Some fluid is noted within the inferior left mastoid air cells. Globes are intact. IMPRESSION: 1. Moderate cerebral cortical atrophy. Moderate burden of chronic small vessel ischemic disease. No a cute intracranial abnormality seen. 2. Fluid in the inferior left mastoid air cells. Correlate for any mastoid regions mastoiditis. 3. Moderate chronic left ethmoid sinus disease.
== END | disposition home or self-care (01) ==
LOC: RADMRIMAIN 11:00
PROVIDERS: ATTEND Family Medicine
DX: I67.82 Cerebral ischemia (principal); H70.92 Unspecified mastoiditis, left ear; G31.1 Senile degeneration of brain, not elsewhere classified
CPT/HCPCS: 70551

== ENCOUNTER → 2024-06-19 | Outpatient (CLI) | payer MEDICARE ==
--- NOTE | 2024-06-19 15:07 | US ---
EXAMINATION TYPE: US st tissue neck DATE OF EXAM: 06/19/2024 COMPARISON: NONE CLINICAL INDICATION: Female, 79 years old with history of R59.0 LOCALIZED ENLARGED LYMPH NODES; sonog rapher notes: Obvious palpable seen along the right supraclavicular region, soft to touch, no pain TECHNIQUE: Soft tissue scan of palp FINDINGS: 5.9 x 3.8 x 1.8cm isoechoic area that may represent lipoma, scanned left supraclavicular r egion for comparison. IMPRESSION: No suspicious mass or lymphadenopathy identified by ultrasound while scanning along the right supraclavicular region. There is a vague 5.9 x 3.8 x 1.8 cm area resembling the normal subcutan eous fat that could represent a lipoma. However, the contralateral side has a similar appearance. Cli nical follow-up is recommended. Rescan if any enlarging abnormality or suspicious clinical features sofia de leon.
== END | disposition home or self-care (01) ==
LOC: RADUSWWP 12:03
PROVIDERS: ATTEND Family Medicine
DX: R59.0 Localized enlarged lymph nodes (principal)
CPT/HCPCS: 76536